=== PATIENT | female | born 1970 | race Caucasian/White ===

== ENCOUNTER → 2019-03-04 13:38 | Outpatient (CLI) | payer MEDICARE, MEDICAID, SELFPAY ==
[2019-03-04 14:16] LABS: Add Manual Diff / Slide Review NO; Basophils Absolute Auto 100 /uL (0-100); Basophils Percent Auto 0.8 % (0-2); Eosinophils Absolute Auto 100 /uL (0-450); Eosinophils Percent Auto 0.8 % (2-4); Hematocrit 39.4 % (36-46); Hemoglobin 12.6 g/dL (12.0-16.0); Lymphocytes Absolute Auto 2700 /uL (1100-4500); Lymphocytes Percent Auto 34.3 % (25-40); Mean Corpuscular Hemoglobin 26.4 PG (26-34); Mean Corpuscular Volume 82.7 fL (80-100); Monocytes Absolute Auto 400 /uL (0-900); Monocytes Percent Auto 5.4 % (3-14); Neutrophils Absolute Auto 4500 /uL (1500-7000); Neutrophils Percent Auto 58.7 % (50-75); Platelet Count 376 X10^3/uL (150-400); Red Blood Cell Count 4.76 X10^6/uL (4.0-5.2); Red Cell Distribution Width 15.7 % (11.6-14.8); White Blood Cell Count 7.7 X10^3/uL (4.5-11.0)
[2019-03-04 14:46] LABS: Alanine Aminotransferase 23 IU/L (9-52); Albumin 4.5 g/dL (3.5-5.0); Alkaline Phosphatase 102 U/L (38-126); Aspartate Aminotransferase 13 IU/L (14-36); Bilirubin Total 0.5 mg/dL (0.2-1.3); Blood Urea Nitrogen 9 mg/dL (7-17); Calcium 9.5 mg/dL (8.4-10.2); Carbon Dioxide 25 mmol/L (22-32); Chloride 99 mmol/L (98-107); Cholesterol 227 mg/dL (140-199); Estimated Glomerular Filt Rate > 60.0 mL/min (>60); Glucose 301 mg/dL (70-100); HDL Cholesterol 69 mg/dL (40-60); HEMOLYSIS < 15 (0-50); LDL Cholesterol Calculated 141 mg/dL (<100); Potassium 4.7 mmol/L (3.4-5.1); Sodium 135 mmol/L (137-145); Triglycerides 84 mg/dL (35-150)
[2019-03-04 14:54] LABS: Albumin Globulin Ratio 1.6 (1.0-2.8); Globulin 2.8 g/dL (1.7-4.1); Total Protein 7.3 g/dL (6.3-8.2)
[2019-03-04 15:03] LABS: Free T4, Direct Thyroxine 1.36 ng/dL (0.78-2.19)
[2019-03-04 15:17] LABS: Thyroid Stimulating Hormone 1.09 uIU/mL (0.47-4.68)
== END ==
PROVIDERS: Family Provider Internal Medicine; PCP Internal Medicine; Visit Provider Nurse Practitioner Psychiatric/Mental Health
DX: F31.9 Bipolar disorder, unspecified (principal); E03.9 Hypothyroidism, unspecified; Z51.81 Encounter for therapeutic drug level monitoring
CPT/HCPCS: 36415; 80053; 80061; 84439; 84443; 85025

== ENCOUNTER 2019-03-08 18:44 | Emergency (ER) | payer MEDICARE, MEDICAID, SELFPAY ==
[2019-03-08 19:05] VITALS: BP 112/69; PULSE 83; RESP 20; TEMP 37.1; O2SAT 97; BMI 25.0
--- NOTE | 2019-03-08 19:05 | ED.GENADULT ---
HPI - General Adult General Chief complaint: Diabetic Problem Stated complaint: diabetic, blood sugar all over the place Time Seen by Provider: 03/08/19 19:05 Source: patient Mode of arrival: ambulatory Limitations: no limitations History of Present Illness HPI narrative: Patient is a 48-year-old female was recently diagnosed with diabetes. Was started on Lantus and dispose be taken 10 units of insulin q.h.s.. I received a call from poison Control that they informed the patient to come into the emergency department. She called them after she injected herself with 6 units of Lantus at 1440 hours. 10 units of Lantus at 1532 hours, 10 units of Lantus at 1554 hours, 10 units of Lantus at 1656 hours. She states she was doing this because her blood sugar was high and that she had read on the Internet some information about carb counting. Poison Control stated that normally they recommend these individual stay at home however because of the amount of Lantus that she has taken the thought that she needed to be observed. They stated that she should be observed for 4 hours after her last dose of insulin for blood sugars remained steady. She is here 2 hours after her last dose. Related Data Home Medications Medication Instructions Recorded Confirmed acyclovir PO BID #0 01/21/18 01/24/19 levothyroxine 50 mcg tablet 50 mcg PO 90 Days tab 04/23/18 01/24/19 omeprazole 40 mg capsule,delayed 40 mg PO 90 Days cap 04/23/18 01/24/19 release cholecalciferol (vitamin D3) 2,000 2,000 unit PO DAILY 07/26/18 01/24/19 unit capsule omega-3 fatty acids 1,000 mg 1,000 mg PO DAILY 01/24/19 01/24/19 capsule Previous Rx's Medication Instructions Recorded zolpidem 10 mg tablet 10 mg PO HS #90 tab 12/24/18 zolpidem 5 mg tablet 5 mg PO HS #90 tab 12/24/18 bupropion HCl XL 300 mg 24 hr 300 mg PO QDAY #30 tab 12/26/18 tablet, extended release lamotrigine 150 mg tablet 150 mg PO QDAY #30 tab 12/26/18 prazosin 5 mg capsule 10 mg PO .HS #60 cap 12/26/18 trazodone 150 mg tablet 150 mg PO HS #30 tab 12/26/18 acyclovir 400 mg tablet See Rx Instructions PO BID #45 tab 01/24/19 alprazolam 0.5 mg tablet 1 mg PO BIDP #60 tab 01/24/19 estradiol 0.1 mg/24 hr semiweekly 1 patch TRANSDERMAL 2XW #8 each 01/24/19 transdermal patch medroxyprogesterone 5 mg tablet 5 mg PO DAILY #90 tab 03/03/19 methylphenidate ER 36 mg 72 mg PO QDAY #60 tab 03/03/19 tablet,extended release 24 hr estradiol 1 mg tablet 1 mg PO DAILY #90 tab 03/05/19 lithium carbonate 300 mg capsule 300 mg PO BEDTIME #90 cap 03/05/19 Allergies Allergy/AdvReac Type Severity Reaction Status Date / Time acetaminophen [From VICODIN] Allergy Unknown Verified 03/08/19 19:10 hydrocodone [From VICODIN] Allergy Unknown Verified 03/08/19 19:10 morphine AdvReac Unknown Pt states Verified 03/08/19 19:10 very sharp pain in pancreas area TAPE Allergy Unknown Uncoded 01/24/19 13:00 Review of Systems Constitutional Denies fever(s) and Denies headache(s) ENT Ears, Nose, Mouth, and Throat: Denies headache(s) Cardiovascular Denies chest pain and Denies dyspnea Respiratory Denies dyspnea Gastrointestinal Gastrointestinal: Denies abdominal pain Genitourinary Denies dysuria Musculoskeletal Denies myalgias and Denies arthralgias Integumentary/Breasts Denies rash Neurologic Denies behavioral changes and Denies headache(s) Psychiatric Denies behavioral changes Hematologic/Lymphatic Denies easy bleeding and Denies easy bruising [facility] Medical History Diabetes (Acute) History of alcohol abuse (Acute) Social History Smoking Status: Former smoker Social History Smoking Status: Former smoker Exam Initial Vital Signs Initial Vital Signs: Vital Signs Temperature 98.8 F 03/08/19 19:05 Pulse Rate 83 03/08/19 19:05 Respiratory Rate 20 03/08/19 19:05 Blood Pressure 112/69 03/08/19 19:05 Pulse Oximetry 97 03/08/19 19:05 Const General: cooperative, healthy appearing, comfortable, well developed, well groomed and No acute distress Orientation: alert, awake and oriented x3 HENMT Head: normal to inspection and normocephalic Resp Effort & Inspection: normal respiratory effort Cardio Rate: regular rate Skin Lesions: no lesions Rashes: no rashes Neuro General: alert, awake and oriented x3 Cognition: normal cognition Speech: speech normal Motor: muscle tone normal throughout Sensory Exam: no sensory deficits noted Extrem General: normal to inspection and capillary refill normal Psych Appearance: grossly normal and well kempt Course Orders Ordered: Discontinued Medications Ibuprofen (Advil) 800 mg PO NOW ONE Stop: 03/08/19 22:47 Last Admin: 03/08/19 22:56 Dose: 800 mg Vital Signs - 8 hr 03/08/19 19:05 03/08/19 21:30 03/08/19 22:30 Temperature 98.8 F Pulse Rate 83 84 91 H Respiratory Rate 20 20 Blood Pressure 112/69 Blood Pressure [Left Arm] 114/69 100/60 Pulse Oximetry 97 98 100 03/08/19 23:30 03/09/19 00:30 03/09/19 01:00 Temperature Pulse Rate 73 78 77 Respiratory Rate 16 16 16 Blood Pressure Blood Pressure [Left Arm] 109/64 110/62 104/39 L Pulse Oximetry 98 98 98 Medical Decision Making Lab Data Lab results reviewed: Yes I reviewed the patient's lab results. Point of Care Testing Glucose POC 359 Point of care testing: Point of Care Testing Glucose POC 359 MDM Narrative Medical decision making narrative: Patient was observed here in the emergency department for several hours. Initially her blood sugar was decreasing. She was given food to eat after she started become somewhat shaky when her glucose is in the 90s. Two repeat blood sugars after that shows that the sugar was actually elevating. I discussed the case further with poison Control who stated that she could be discharged home after does show that her blood sugars are no longer falling. I informed the patient that she did need to check her blood sugars at home for the next couple hours. She was given return precautions. I informed her that she needed to contact her primary doctor on Sunday to discuss further evaluation workup. Patient expressed understanding and agreement with plan. Discharge Plan Departure Patient Disposition: Home Clinical Impression: Hyperglycemia Insulin overdose Qualifiers: Encounter type: initial encounter Injury intent: undetermined intent Qualified Code(s): T38.3X4A - Poisoning by insulin and oral hypoglycemic [antidiabetic] drugs, undetermined, initial encounter Discharge Date/Time: 03/09/19 01:20 Interventions: ED Discharge Assessment Last Done: 03/09/19 01:22 Instructions: DI for Diabetes Type 2 Activity Restrictions/Additional Instructions: I recommend that you stick with taking the 10 units of Lantus at night as directed by your primary doctor. On Sunday morning contact your primary doctor to get clarification on how often they would like you to check your blood sugars. Keep all of your scheduled medical appointments. Return to the emergency department for any new or worsening symptoms Prescriptions: No Action levothyroxine 50 mcg tablet 50 mcg PO 90 Days RF: 0 omeprazole 40 mg capsule,delayed release(DR/EC) 40 mg PO 90 Days RF: 0 alprazolam [Xanax] 0.5 mg tablet 1 mg PO BIDP Qty: 60 RF: 2 cholecalciferol (vitamin D3) 2,000 unit capsule 2,000 unit PO DAILY RF: 0 methylphenidate HCl 36 mg tablet extended release 24hr 72 mg PO QDAY Qty: 60 RF: 0 acyclovir 400 mg Tablet PO BID Qty: 0 RF: 0 zolpidem [Ambien] 10 mg tablet 10 mg PO HS Qty: 90 RF: 0 zolpidem 5 mg tablet 5 mg PO HS Qty: 90 RF: 0 bupropion HCl [Wellbutrin XL] 300 mg tablet extended release 24 hr 300 mg PO QDAY Qty: 30 RF: 2 prazosin 5 mg capsule 10 mg PO .HS Qty: 60 RF: 2 trazodone 150 mg tablet 150 mg PO HS Qty: 30 RF: 2 lamotrigine 150 mg tablet 150 mg PO QDAY Qty: 30 RF: 2 estradiol 0.1 mg/24 hr patch semiweekly 1 patch Transdermal 2XW Qty: 8 RF: 12 medroxyprogesterone [Provera] 5 mg tablet 5 mg PO DAILY Qty: 90 RF: 3 lithium carbonate 300 mg capsule 300 mg PO BEDTIME Qty: 90 RF: 1 estradiol 1 mg tablet 1 mg PO DAILY Qty: 90 RF: 3 omega-3 fatty acids [Fish Oil Concentrate] 1,000 mg capsule 1,000 mg PO DAILY RF: 0 acyclovir 400 mg tablet See Rx Instructions PO BID Qty: 45 RF: 12 Referrals: Adwoa Navarro MD [Primary Care Provider] -
--- NOTE | 2019-03-08 19:29 | PC.NURSE ---
Pt is newly diagnosed Type II Diabetic. Was prescribed Lantus 10 units nightly. States her blood glucose today was 487 so she took her Lantus in small doses every half hour between 1430 and 1700 today. Took a total of 36 units of the Lantus. Also has history of Bipolar Depression.
[2019-03-08 21:30] VITALS: BP 114/69; PULSE 84; RESP 20; O2SAT 98
[2019-03-08 22:30] VITALS: BP 100/60; PULSE 91; O2SAT 100
[2019-03-08] MEDS: IBUPROFEN 400 MG TABLET 800 MG PO (22:56)
--- NOTE | 2019-03-08 23:11 | PC.NURSE ---
Patient feeling better after Ensure shake, apple juice, and qian crackers. Provider notified.
[2019-03-08 23:30] VITALS: BP 109/64; PULSE 73; RESP 16; O2SAT 98
[2019-03-09 00:30] VITALS: BP 110/62; PULSE 78; RESP 16; O2SAT 98
[2019-03-09 01:00] VITALS: BP 104/39; PULSE 77; RESP 16; O2SAT 98
== END 2019-03-09 01:20 | disposition home or self-care (01) ==
PROVIDERS: Emergency Provider Emergency Medicine; PCP Internal Medicine
DX: T38.3X4A Poisoning by insulin and oral hypoglycemic [antidiabetic] drugs, undetermined, initial encounter (principal); R73.9 Hyperglycemia, unspecified
CPT/HCPCS: 82962; 99283; 99285

== ENCOUNTER 2019-05-03 15:57 | Emergency (ER) | payer MEDICARE, MEDICAID, OTHER, SELFPAY ==
[2019-05-03 16:09] VITALS: BP 124/72; PULSE 92; RESP 18; TEMP 36.7; O2SAT 99; BMI 27.8
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
== END 2019-05-03 17:07 | disposition home or self-care (01) ==
PROVIDERS: Emergency Provider Emergency Medicine; PCP Internal Medicine
DX: H10.212 Acute toxic conjunctivitis, left eye (principal); M54.5 Low back pain; Y09 Assault by unspecified means
CPT/HCPCS: 82962; 99283

== ENCOUNTER → 2019-07-07 18:19 | Outpatient (CLI) | payer MEDICARE, MEDICAID, SELFPAY ==
--- NOTE | 2019-07-07 18:24 | DI.RAD.S_ITS ---
PROCEDURE: XR LUMBAR SPINE MIN 4V INDICATIONS: Pain low back >3 months TECHNIQUE: 5 views of the lumbar spine were acquired. COMPARISON: [facility], , L-SPINE 2-3 VIEWS, 06/20/2017, 14:31. FINDINGS: Bones: 5 nonrib-bearing vertebrae are present. There is normal bony alignment. No vertebral body compression fractures. No suspicious bony lesions. Soft tissues: Overlying bowel gas pattern is normal. No suspicious soft tissue calcifications. Oblique images: No pars defects. IMPRESSION: There is only a minimal degree of degenerative disc disease and facet osteoarthritis along the lumbosacral spine without abnormal disc height reduction or subluxation and there is no evidence of compression fracture. Dictated by: Osvaldo Hickman M.D. on 07/08/2019 at 8:24 Approved by: Osvaldo Hickman M.D. on 07/08/2019 at 8:25
--- NOTE | 2019-07-07 18:24 | DI.MRI.S_ITS ---
PROCEDURE: MR LUMBAR SPINE WO CON INDICATIONS: Pain low back >3 months TECHNIQUE: Noncontrast sagittal T1 spin echo and T2 fast echo, sagittal STIR, axial T1 and T2 fast spin echo through the lumbar spine. In cases with scoliosis, additional coronal T2 fast spin echo may be performed. COMPARISON: None. FINDINGS: Image quality: Excellent. Alignment and Curvature: There is normal bony alignment. Bone Marrow: Marrow is of normal overall signal. No acute vertebral body compression fractures. There is lower lumbar facet arthropathy Spinal Cord: Conus medullaris terminates at the L1 level. Visualized cord demonstrates normal signal and size. Paraspinous Soft Tissues: No paravertebral masses. L1-L2: Normal appearance. L2-L3: Normal appearance. L3-L4: Normal appearance. L4-L5: Normal appearance. L5-S1: Normal appearance. IMPRESSION: No canal or foraminal stenosis. Mild lower lumbar facet arthropathy Dictated by: Orville Rocha M.D. on 07/08/2019 at 10:19 Approved by: Orville Rocha M.D. on 07/08/2019 at 10:22
== END ==
PROVIDERS: PCP Internal Medicine; Visit Provider Registered Nurse
DX: M54.5 Low back pain (principal); M47.816 Spondylosis without myelopathy or radiculopathy, lumbar region
CPT/HCPCS: 72110; 72148; 90837

== ENCOUNTER 2019-10-05 14:15 | Emergency (ER) | payer MEDICARE, MEDICAID, SELFPAY ==
[2019-10-05 14:34] VITALS: BP 127/75; PULSE 107; RESP 18; TEMP 37.1; O2SAT 97; BMI 28.1
--- NOTE | 2019-10-05 16:28 | ED.ANIMALBIT ---
HPI - Animal Bite General Chief Complaint: Animal Bite Stated Complaint: Animal bite/ scratches Time Seen by Provider: 10/05/19 16:03 Source: patient Mode of arrival: Family Vehicle Limitations: no limitations History of Present Illness HPI narrative: Patient is a 49-year-old female presenting with cat bite to both hands yesterday. She states that she was playing with a feral cat who she is trying to get ready for adoption. The cat has actually had all of its shots. She said that her left thumb was draining. Her right thumb seems to be more tender. She has no redness or streaking upper arms no fever or chills. She states that her tetanus in all of her shots are up-to-date. MD complaint: animal bite Onset (ago): day(s) Animal: cat Mechanism: bite and scratch Related Data Home Medications Medication Instructions Recorded Confirmed acyclovir PO BID #0 01/21/18 09/10/19 levothyroxine 50 mcg tablet 50 mcg PO 90 Days tab 04/23/18 09/10/19 omeprazole 40 mg capsule,delayed 40 mg PO 90 Days cap 04/23/18 09/10/19 release omega-3 fatty acids 1,000 mg 1,000 mg PO DAILY 01/24/19 09/10/19 capsule atorvastatin 10 mg tablet 10 mg PO BEDTIME 07/02/19 09/10/19 cholecalciferol (vitamin D3) 50 4,000 unit PO DAILY cap 07/02/19 09/10/19 mcg (2,000 unit) capsule gabapentin 300 mg capsule 300 mg PO TID 07/02/19 09/10/19 insulin aspart U-100 SUBCUT TID 07/02/19 09/10/19 insulin glargine SUBCUT .qhs 07/02/19 09/10/19 mirabegron 25 mg tablet,extended 25 mg PO DAILY 07/02/19 09/10/19 release 24 hr propranolol 10 mg tablet 10 mg PO .unk tab 07/02/19 09/10/19 Previous Rx's Medication Instructions Recorded medroxyprogesterone 5 mg tablet 5 mg PO DAILY #90 tab 03/03/19 estradiol 1 mg tablet 1 mg PO DAILY #90 tab 03/05/19 alprazolam 0.5 mg tablet 1 mg PO BIDP #60 tab 06/16/19 lithium carbonate 300 mg capsule 300 mg PO BEDTIME #90 cap 07/25/19 escitalopram oxalate 10 mg tablet 10 mg PO DAILY #90 tab 07/29/19 prazosin 5 mg capsule 10 mg PO .HS #180 cap 08/04/19 bupropion HCl 300 mg 24 hr tablet, 300 mg PO QDAY #90 tab 09/10/19 extended release lamotrigine 150 mg tablet 150 mg PO QDAY #90 tab 09/10/19 methylphenidate HCl 36 mg 72 mg PO QDAY #60 tab 09/10/19 tablet,extended release 24 hr trazodone 150 mg tablet 150 mg PO HS #90 tab 09/10/19 zolpidem 10 mg tablet 10 mg PO HS #90 tab 09/10/19 zolpidem 5 mg tablet 5 mg PO HS #90 tab 09/10/19 amoxicillin-pot clavulanate 1 tab PO Q12H #20 tab 10/05/19 [Augmentin] fluconazole [Diflucan] 150 mg PO DAILY #1 tab 10/05/19 Allergies Allergy/AdvReac Type Severity Reaction Status Date / Time acetaminophen [From VICODIN] Allergy Unknown Verified 10/05/19 14:41 hydrocodone [From VICODIN] Allergy Unknown Verified 10/05/19 14:41 morphine AdvReac Unknown Pt states Verified 10/05/19 14:41 very sharp pain in pancreas area TAPE Allergy Unknown Uncoded 10/05/19 14:41 Review of Systems Review of Systems Narrative: GENERAL: Denies chills,fever HEENT: Denies throat pain RESPIRATORY: Denies dyspnea, cough, wheezing CARDIOVASCULAR: Denies chest pain, palpitations GASTROINTESTINAL: Denies nausea, vomiting MUSCULOSKELETAL: Denies extremity pain, injury SKIN: see HPI NEUROLOGIC: Denies weakness, dizziness, headache, numbness 8 point review of systems is negative except for those stated above and HPI Patient History Medical History Diabetes (Acute) History of alcohol abuse (Acute) Social History Smoking Status: Former smoker alcohol intake frequency: 0-2 drinks per day Substance Use Type: does not use Exam Initial Vital Signs Initial Vital Signs: Vital Signs Temperature 98.7 F 10/05/19 14:34 Pulse Rate 107 H 10/05/19 14:34 Respiratory Rate 18 11/10/19 14:34 Blood Pressure 127/75 10/05/19 14:34 Pulse Oximetry 97 10/05/19 14:34 GENERAL: Well-appearing, well-nourished and in no acute distress. CARDIOVASCULAR: peripheral pulses in tact, cap refill <2 sec RESPIRATORY: No respiratory distress, speaks in full sentences without difficulty EXTREMITIES: Normal range of motion, no clubbing or edema. Neurovascularly intact NEUROLOGICAL: Cranial nerves II through XII grossly intact. Normal gait and speech. SKIN: Puncture musa noted in left hand between thumb and index finger no streaking no foreign body. Right thumb does have puncture umsa it is slightly red Course Orders Ordered: ED Orders 10/05/19 16:35 XR finger RT min 2V Stat Discontinued Medications Diphtheria/Tetanus/Acell Pertussis (Adacel) 0.5 ml IM .ONCE ONE Stop: 10/05/19 17:00 Last Admin: 10/05/19 17:08 Dose: 0.5 ml Documented by: LESLIE Vital Signs Vital signs: Vital Signs - 8 hr 10/05/19 14:34 10/05/19 17:42 Temperature 98.7 F Pulse Rate 107 H 100 H Respiratory Rate 18 18 Blood Pressure 127/75 112/68 Pulse Oximetry 97 MDM - Animal Bite Imaging Data finger right: Radiologist's impression: PROCEDURE: XR FINGER RT MIN 2V INDICATIONS: cat bite thumb TECHNIQUE: AP hand, 2 views of the thumb were acquired. COMPARISON: None. FINDINGS: Bones: No fractures or dislocations. No suspicious bony lesions. Soft tissues: No suspicious soft tissue calcifications. No unexpected radiopaque foreign bodies. IMPRESSION: No acute osseous abnormality of the right thumb. Dictated by: Eris Graham M.D. on 10/05/2019 at 15:54 MDM Narrative Medical decision making narrative: Patient has no sign of sepsis. She is given a tetanus in the ED. Discharge Plan Departure Patient Disposition: Home Clinical Impression: Cat bite of hand Qualifiers: Encounter type: initial encounter Laterality: unspecified laterality Qualified Code(s): S61.459A - Open bite of unspecified hand, initial encounter Discharge Date/Time: 10/05/19 17:43 Instructions: DI for Cat Bite Activity Restrictions/Additional Instructions: *You have been diagnosed with cat bite bilateral hands *What to do: *Continue to take medications as directed Augmentin 875 mg twice a day for 10 days--> SENT TO [facility] *Follow up with your primary care provider in 2-3 days *Return to ER if you should have redness or streaking up the arm, increased pain, fever or chills or any new, worsening or concerning symptoms Prescriptions: New amoxicillin-pot clavulanate [Augmentin] 875-125 mg tablet 1 tab PO Q12H Qty: 20 RF: 0 fluconazole [Diflucan] 150 mg tablet 150 mg PO DAILY Qty: 1 RF: 0 No Action levothyroxine 50 mcg tablet 50 mcg PO 90 Days RF: 0 omeprazole 40 mg capsule,delayed release(DR/EC) 40 mg PO 90 Days RF: 0 bupropion HCl [Wellbutrin XL] 300 mg tablet extended release 24 hr 300 mg PO QDAY Qty: 90 RF: 1 lamotrigine 150 mg tablet 150 mg PO QDAY Qty: 90 RF: 1 trazodone 150 mg tablet 150 mg PO HS Qty: 90 RF: 1 zolpidem [Ambien] 10 mg tablet 10 mg PO HS Qty: 90 RF: 1 zolpidem 5 mg tablet 5 mg PO HS Qty: 90 RF: 1 methylphenidate HCl 36 mg tablet extended release 24hr 72 mg PO QDAY Qty: 60 RF: 0 cholecalciferol (vitamin D3) 2,000 unit capsule 4,000 unit PO DAILY RF: 0 acyclovir 400 mg Tablet PO BID Qty: 0 RF: 0 medroxyprogesterone [Provera] 5 mg tablet 5 mg PO DAILY Qty: 90 RF: 3 estradiol 1 mg tablet 1 mg PO DAILY Qty: 90 RF: 3 alprazolam [Xanax] 0.5 mg tablet 1 mg PO BIDP Qty: 60 RF: 2 lithium carbonate 300 mg capsule 300 mg PO BEDTIME Qty: 90 RF: 1 escitalopram oxalate 10 mg tablet 10 mg PO DAILY Qty: 90 RF: 0 prazosin 5 mg capsule 10 mg PO .HS Qty: 180 RF: 1 omega-3 fatty acids [Fish Oil Concentrate] 1,000 mg capsule 1,000 mg PO DAILY RF: 0 gabapentin 300 mg capsule 300 mg PO TID RF: 0 insulin glargine SUBCUT .qhs RF: 0 atorvastatin [Lipitor] 10 mg tablet 10 mg PO BEDTIME RF: 0 mirabegron 25 mg tablet extended release 24 hr 25 mg PO DAILY RF: 0 insulin aspart U-100 subcut TID RF: 0 propranolol 10 mg tablet 10 mg PO .unk RF: 0 Referrals: Adwoa Navarro MD [Primary Care Provider] -
--- NOTE | 2019-10-05 16:35 | DI.RAD.S_ITS ---
PROCEDURE: XR FINGER RT MIN 2V INDICATIONS: cat bite thumb TECHNIQUE: AP hand, 2 views of the thumb were acquired. COMPARISON: None. FINDINGS: Bones: No fractures or dislocations. No suspicious bony lesions. Soft tissues: No suspicious soft tissue calcifications. No unexpected radiopaque foreign bodies. IMPRESSION: No acute osseous abnormality of the right thumb. Dictated by: Eris Graham M.D. on 10/05/2019 at 15:54 Approved by: Eris Graham M.D. on 10/05/2019 at 15:54
[2019-10-05] MEDS: TET,DIPH,PERTUSS(ACELL),VAC/PF 0.5 ML SYRINGE IM (17:08)
[2019-10-05 17:42] VITALS: BP 112/68; PULSE 100; RESP 18
== END 2019-10-05 17:43 | disposition home or self-care (01) ==
PROVIDERS: Emergency Provider Emergency Medicine; PCP Internal Medicine
DX: S61.051A Open bite of right thumb without damage to nail, initial encounter (principal); S61.452A Open bite of left hand, initial encounter; S61.451A Open bite of right hand, initial encounter; Z23 Encounter for immunization
CPT/HCPCS: 73140; 90471; 99282; 99283; 90715

== ENCOUNTER → 2020-06-21 11:02 | Outpatient (CLI) | payer MEDICARE, MEDICAID, SELFPAY ==
[2020-06-22 20:28] LABS: COVID19 Sendout Not Detected (Not Detect)
== END ==
PROVIDERS: PCP Nurse Practitioner; Visit Provider Physician Assistant
DX: Z01.812 Encounter for preprocedural laboratory examination (principal)
CPT/HCPCS: 87635

== ENCOUNTER 2020-06-24 14:45 | Outpatient (CLI) | payer MEDICARE, MEDICAID, SELFPAY ==
[2020-06-24] VITALS (8 sets, daily range): BP systolic 99–118; BP diastolic 58–76; PULSE 87–111; RESP 15–16; TEMP 37.2; O2SAT 93–98
--- NOTE | 2020-06-24 14:46 | DI.RAD.S_ITS ---
PROCEDURE: PAIN L/S FACET INJ/BLK 1ST JUAN COMPARISON: None. INDICATIONS: SPONDYLOSIS FINDINGS: Fluoroscopic spot filming was performed to verify placement of spinal needles at the L4, L5, S1 level(s), as labeled on the films. Appropriate location(s) of the needle tip(s) was confirmed by injection of iodinated contrast. Dictated by: Orville Rocha M.D. on 06/24/2020 at 15:55 Approved by: Orville Rocha M.D. on 06/24/2020 at 15:56
[2020-06-24] MEDS: IOPAMIDOL 15 ML VIAL 3 ML INJ (15:16)
[2020-06-24] MEDS: LIDOCAINE 1% 20 ML 10 ML INJ (15:16)
[2020-06-24] MEDS: BUPIVACAINE 0.5% (PF) VIAL 5 ML INJ (15:16)
[2020-06-24] MEDS: fentaNYL 100 MCG/2 ML INJ 50 MCG IV (15:27)
[2020-06-24] MEDS: MIDAZOLAM 5 MG/5 ML VIAL IV (15:28)
--- NOTE | 2020-06-24 15:29 | P.PCN_ITS ---
Date/Time/Diagnoses Date of procedure: 06/24/20 Time of procedure: 15:29 Pre-procedure diagnosis: 1. FACET ARTHROPATHY Post-procedure diagnosis: same Procedure Notes Procedure: 1. BILATERAL- L4, L5 and S1 DIAGNOSTIC MB BLOCKS with LA Anesthetic Indications: Mary Grace is referred by GAYE Jeffrey for treatment of Bilateral Axial LBP. Physician: Jordon Jacques Total Fluoroscopy time (seconds): 10 Total sedation minutes: 15 Complications: none Procedure in detail & Post-procedure care: DESCRIPTION OF PROCEDURE Fluoroscopically guided, contrast-controlled bilateral L4, L5 and S1 medial branch blocks with 0.5cc of 0.5% Marcaine. Following review of allergy and review of potential side effects and complications, including, but not necessarily limited to, infection, allergic reaction, local tissue breakdown, nerve injury, paralysis, stroke and possible , the patient indicated that the patient understood and agreed to proceed. An informed consent document was signed by the patient, witnessed by a nurse, and placed in the patient's chart. After review of previous anaesthesic history and IV conscious sedation the patient was deemed safe to proceed with today's procedure with IV conscious sedation as ASA class II designation. Safety time-out was performed to confirm patient ID, procedure to be performed and site of procedure. IV sedation was accomplished with a combination of 3mg of Versed and 50mcg of Fentanyl was administered by the RN after DO order, titrated to patient comfort during the course of the procedure while the patient remained responsive to all verbal commands In the prone position, following sterile prep and drape of the lumbar region, the right L4, L5 and S1 anatomical location of the medial branch of the dorsal ramus was identified fluoroscopically. Subsequently an anesthetic skin wheal using 1% lidocaine solution was initiated at each of the anatomical spots. Subsequently then a 22-gauge 3.5-inch spinal needle was atraumatically introduced and advanced under fluoroscopic guidance at each of the corresponding sites at the right L4, L5 and S1 MB. After negative aspiration, 0.2cc of Isovue 200 was injected, confirming placement without vascular or intrathecal uptake. Subsequently then 0.5cc of 0.5% Marcaine and 0.5cc or 3mg of betamethasone solution was injected at each of the corresponding sites at the right L4, L5 and S1 medial branch locations. The identical procedure was replicated on the left. The patient tolerated the procedure well without signs or symptoms of complications prior to transfer to the recovery area continued monitoring with out incident. Post-procedure, the patient was monitored initiating provocative activities to measure the amount of relief from block of the facetogenic pain. The patient reported a VAS of 7 prior to the procedure and a post-procedure VAS of 1. It has been a pleasure to assist in the diagnostic and therapeutic care of your patient. POST OP INSTRUCTIONS The patient was provided with a Pain Log to complete over the next several hours and subsequent days prior to the patient's follow up with the ordering physician. If the patient has distance learning unit leader relief to the solution applied, then they may be a candidate for medial branch rhizotomy. The patient is aware, was provided, once again, with a Pain Log and will follow up with the referring physician for review and clinical correlation
--- NOTE | 2020-06-24 15:34 | PC.NURSE ---
returned to pre proc room by . SBA for transfer from to chair. monitoring resumed per protocol
[2020-06-24] MEDS: BETAMETHASONE 30 MG/5 ML MDV 6 MG INJ (15:36)
--- NOTE | 2020-06-24 15:39 | PC.NURSE ---
Pt tolerated procedure well. VSS upon transfer to post procedure room to REBE[facility] Sands. All sedaiton meds given by Ann Andrade. All other documented meds adminsitered by Dr Jacques.
== END 2020-06-24 16:06 | disposition home or self-care (01) ==
PROVIDERS: PCP Nurse Practitioner; Referring Provider Physical Medicine & Rehabilitation; Visit Provider Physical Medicine & Rehabilitation
DX: M47.816 Spondylosis without myelopathy or radiculopathy, lumbar region (principal); M47.817 Spondylosis without myelopathy or radiculopathy, lumbosacral region; M54.5 Low back pain
CPT/HCPCS: 64493; 64494; 99152; J0702; J2250; J3010

== ENCOUNTER → 2020-09-30 10:42 | Outpatient (CLI) | payer MEDICARE, MEDICAID, SELFPAY ==
[2020-09-30 11:39] LABS: Glucose 161 mg/dL (70-100)
[2020-10-01 07:11] LABS: C Peptide 2.3 ng/mL (1.1-4.4)
== END ==
PROVIDERS: PCP Nurse Practitioner; Referring Provider Nurse Practitioner Family; Visit Provider Nurse Practitioner Family
DX: E11.42 Type 2 diabetes mellitus with diabetic polyneuropathy (principal); F31.81 Bipolar II disorder; F90.2 Attention-deficit hyperactivity disorder, combined type; F10.21 Alcohol dependence, in remission; F43.10 Post-traumatic stress disorder, unspecified; Z79.4 Long term (current) use of insulin
CPT/HCPCS: 36415; 82947; 84681; 90837

== ENCOUNTER → 2020-10-22 08:25 | Outpatient (CLI) | payer MEDICARE, MEDICAID, SELFPAY ==
[2020-10-22 11:21] LABS: Glucose 54 mg/dL (70-100)
[2020-10-22 11:51] LABS: Thyroid Stimulating Hormone 0.835 uIU/mL (0.47-4.68)
[2020-10-23 09:00] LABS: C Peptide 0.9 ng/mL (1.1-4.4)
== END ==
PROVIDERS: PCP Nurse Practitioner; Referring Provider Nurse Practitioner; Visit Provider Nurse Practitioner
DX: E03.8 Other specified hypothyroidism (principal); E11.42 Type 2 diabetes mellitus with diabetic polyneuropathy; Z79.4 Long term (current) use of insulin
CPT/HCPCS: 36415; 82947; 84443; 84681

== ENCOUNTER → 2020-11-08 13:44 | Outpatient (CLI) | payer MEDICARE, MEDICAID, SELFPAY ==
--- NOTE | 2020-11-08 | DI.MRI.S_ITS ---
PROCEDURE: MR LUMBAR SPINE WO CON INDICATIONS: Radiculopathy, lumbar region TECHNIQUE: Noncontrast sagittal T1 spin echo and T2 fast echo, sagittal STIR, axial T1 and T2 fast spin echo through the lumbar spine. In cases with scoliosis, additional coronal T2 fast spin echo may be performed. COMPARISON: [facility], CR, L-SPINE 2-3 VIEWS, 06/20/2017, 14:31. [facility], MR, MR LUMBAR SPINE WO CON, 07/07/2019, 18:28. FINDINGS: Image quality: Excellent. Alignment and Curvature: 5 lumbar type vertebral bodies are present by plain film. There is normal bony alignment. Bone Marrow: Marrow is of normal overall signal. No acute vertebral body compression fractures. Spinal Cord: Conus medullaris terminates at the upper L1 level. Visualized cord demonstrates normal signal and size. Paraspinous Soft Tissues: No paravertebral masses. L1-L2: Normal appearance. L2-L3: Normal appearance. L3-L4: Normal appearance. L4-L5: Mild facet hypertrophy bilaterally. No significant canal, or foraminal stenosis. L5-S1: Normal appearance. IMPRESSION: 1. Essentially normal lumbar spine MRI. No evidence of neural impingement. No explanation for radiculopathy. Dictated by: Boubacar Cabrera M.D. on 11/08/2020 at 14:42 Approved by: Boubacar Cabrera M.D. on 11/08/2020 at 14:43
== END ==
PROVIDERS: PCP Nurse Practitioner; Referring Provider Anesthesiology; Visit Provider Anesthesiology
DX: M54.16 Radiculopathy, lumbar region (principal)
CPT/HCPCS: 72148

== ENCOUNTER → 2020-11-08 13:46 | Outpatient (CLI) | payer MEDICARE, MEDICAID, SELFPAY ==
[2020-11-08 17:25] LABS: Glucose 66 mg/dL (70-100)
[2020-11-09 14:10] LABS: C Peptide 1.3 ng/mL (1.1-4.4)
== END ==
PROVIDERS: PCP Nurse Practitioner; Referring Provider Nurse Practitioner Family; Visit Provider Nurse Practitioner Family
DX: E11.42 Type 2 diabetes mellitus with diabetic polyneuropathy (principal); Z79.4 Long term (current) use of insulin
CPT/HCPCS: 36415; 82947; 84681

== ENCOUNTER → 2021-04-27 16:26 | Outpatient (CLI) | payer MEDICARE, MEDICAID, SELFPAY ==
[2021-04-27 17:01] LABS: Appearance Urine UA CLOUDY; Bilirubin Urine UA NEGATIVE (NEGATIVE); Color Urine UA YELLOW; Glucose Urine UA NEGATIVE (Negative); Ketones Urine UA NEGATIVE (NEGATIVE); Leukocyte Esterase Urine UA 2+ (NEGATIVE); Nitrite Urine UA NEGATIVE (Negative); Occult Blood Urine UA 1+ (Negative); Protein Urine UA 1+ (Negative); Specific Gravity Urine UA >=1.030 (1.000-1.035); Urobilinogen Urine UA 0.2 E.U./dL (0.2)
[2021-04-27 17:24] LABS: Bacteria Urine Many (>30); Culture Indicated Urine Specimen Cultured; RBC Urine 1-5/HPF (0-5/HPF); Squamous Epithelial Cell Urine 5-10 /HPF (0-5/HPF); WBC Urine 10-30/HPF (0-5/HPF)
== END ==
PROVIDERS: PCP Nurse Practitioner; Referring Provider Nurse Practitioner; Visit Provider Nurse Practitioner
DX: N30.00 Acute cystitis without hematuria (principal)
CPT/HCPCS: 81001; 87077; 87086; 87186

== ENCOUNTER → 2021-06-01 15:21 | Outpatient (CLI) | payer MEDICARE, MEDICAID, SELFPAY ==
[2021-06-01 15:39] LABS: RBC Urine None Seen (0-5/HPF)
[2021-06-01 16:23] LABS: Appearance Urine UA CLEAR; Bilirubin Urine UA NEGATIVE (NEGATIVE); Color Urine UA YELLOW; Glucose Urine UA NEGATIVE (Negative); Ketones Urine UA NEGATIVE (NEGATIVE); Leukocyte Esterase Urine UA NEGATIVE (NEGATIVE); Nitrite Urine UA NEGATIVE (Negative); Occult Blood Urine UA NEGATIVE (Negative); Protein Urine UA NEGATIVE (Negative); Specific Gravity Urine UA <=1.005 (1.000-1.035); Urobilinogen Urine UA 0.2 E.U./dL (0.2)
[2021-06-01 16:39] LABS: Amorphous Sediment Urine 1+; Bacteria Urine Occasional (0-1); Culture Indicated Urine Cult Not Indicated; Squamous Epithelial Cell Urine 1-5 /HPF (0-5/HPF); WBC Urine 1-5/HPF (0-5/HPF)
== END ==
PROVIDERS: PCP Nurse Practitioner; Referring Provider Nurse Practitioner; Visit Provider Nurse Practitioner
DX: N30.00 Acute cystitis without hematuria (principal)
CPT/HCPCS: 81001

== ENCOUNTER → 2022-01-16 11:27 | Outpatient (CLI) | payer MEDICARE, MEDICAID, SELFPAY ==
[2022-01-16 13:58] LABS: COVID19 -Nasal RAPID Negative (Negative)
== END ==
PROVIDERS: PCP Nurse Practitioner; Visit Provider Family Medicine Sleep Medicine
DX: Z20.822 Contact with and (suspected) exposure to COVID-19 (principal)
CPT/HCPCS: 87635; C9803

== ENCOUNTER → 2022-02-08 14:59 | Outpatient (CLI) | payer MEDICARE, MEDICAID, SELFPAY ==
[2022-02-08 15:47] LABS: COVID19 -Nasal RAPID Negative (Negative)
== END ==
PROVIDERS: PCP Nurse Practitioner; Visit Provider Specialist
DX: Z01.812 Encounter for preprocedural laboratory examination (principal); Z20.822 Contact with and (suspected) exposure to COVID-19; F41.1 Generalized anxiety disorder; F42.2 Mixed obsessional thoughts and acts; F31.81 Bipolar II disorder; F90.2 Attention-deficit hyperactivity disorder, combined type; F10.21 Alcohol dependence, in remission
CPT/HCPCS: 87635; C9803; Q3014

== ENCOUNTER 2022-02-09 13:27 | Day surgery (SDC) | payer MEDICARE, MEDICAID, SELFPAY ==
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
[2022-02-07 14:54] VITALS: BMI 23.7
[2022-02-09] VITALS (14 sets, daily range): BP systolic 82–133; BP diastolic 48–79; PULSE 63–74; RESP 13–20; TEMP 36.1–36.8; O2SAT 94–100; BMI 23.8
--- NOTE | 2022-02-09 | PATH_ITS ---
[facility] Accession Number: [id number] . 01 Material submitted: . uterus - UTERUS, BILATERAL FALLOPIAN TUBE AND OVARY . 02 Diagnosis: Uterus, Bilateral Fallopian Tubes and Ovaries, Laparoscopic Supracervical Hysterectomy with Bilateral Salpingo-oophorectomies (Disrupted Specimen Weight 87 grams): Weakly proliferative endometrium; negative for glandular hyperplasia, cytologic atypia, or malignancy. Myometrium with multiple intramural leiomyomas (3-45 mm in greatest dimension); negative for atypia or malignancy. Uterine serosa with no significant histomorphologic abnormality. First described fallopian tube, cross sections, negative for atypia or malignancy. First described ovary with a benign corpus luteum cyst and no significant histomorphologic abnormality. Second described fallopian tube, cross sections, with focal features suggestive of hydrosalpinx, a region of foreign body reaction, and otherwise no significant histomorphologic abnormality. Second described fallopian tube with benign cortical cysts (approximately 3 mm in greatest dimension) and no significant histomorphologic abnormality. MRV 02/13/2022 1742 Local . 02 Electronically signed: . Bárbara Avendaño MD, Pathologist NPI- [id number] . 01 Gross description: . Received in formalin, labeled with the patient's name and designated 1. Uterus, bilateral fallopian tube and ovary is a markedly disrupted and fragmented uterus with bilateral undesignated adnexa and multiple detached nodules. The uterine fragment and nodules aggregate to 87 grams, 10.0 x 8.0 x 3.5 cm. Portions of identifiable serosa are castillo-bella and disrupted with no discrete adhesions identified. Scant portions of endometrium are identified, bella, flat and up to 0.2 cm thick. The myometrium is bella and trabeculated, with numerous intact and detached, 0.3-4.5 cm circumscribed nodules, with a bella-white, whorled and nodular cut surface. No hemorrhage, necrosis or calcifications are identified. The first detached fallopian tube is 4.5 cm long by 0.5 cm in diameter with a purple-bella outer surface and detached open fimbria. The first attached ovary is 2.7 x 1.8 x 0.8 cm, with a castillo-bella disrupted outer surface, sectioned to reveal a mottled bella-white cut surface with one 0.7 cm hemorrhagic cyst with a yo rim. The second detached fallopian tube is 4.0 cm long by 0.7 cm in diameter, with a castillo-bella disrupted outer surface and attached open fimbria. The second ovary is 2.6 x 2.0 x 1.0 cm, with a castillo-bella nodular outer surface, sectioned to reveal a bella, focally hemorrhagic cut surface with two 0.3 cm smooth-lined cortical cysts filled with clear watery fluid. No additional lesions are identified. [employer] sections are submitted as follows: . A1-A2: [employer] endomyometrium with detached serosa. A3-A4: [employer] nodules. A5: [employer] first adnexa, including entire bisected fimbria. A6: [employer] second adnexa, including entire fimbria. (EVELIN:[id number]) /MRV 02/12/2022 1308 Local . 02 Pathologist provided ICD-10: D25.9 . 02 CPT . 995062 Specimen Comment: A courtesy copy of this report has been sent to [phone] Performed at: 01 [facility] [address] [facility], [place], [place] [id number] MD Bernardo Sanders MD Phone: [phone] Performed at: [address] [facility] [address] [place], [place] [id number] MD Agnieszka Begum MD Phone: [phone]
[2022-02-09] MEDS: LACTATED RINGERS 1,000 ML 42 ML IV (14:25)
--- NOTE | 2022-02-09 14:47 | PM.PREOP ---
Pre-operative Note COVID-19 COVID-19 status: Negative Result date/Date tested (Pos, Neg/Pending): 02/08/22 Criteria for continued procedure: Non-surgical alternatives not available or appropriate per current SOC Interval Note History & Physical reviewed/Exam performed by Physician: Yes Changes to H&P: No
--- NOTE | 2022-02-09 14:55 | SUR.OPER ---
Lithotomy on padded OR bed. Carolina Pad Positioner under torso. Head on pillow, arms padded and tucked at sides. Legs secured in padded yellow fins stirrups.
[2022-02-09] MEDS: CEFAZOLIN 2 GM/20 ML SYRINGE IV (15:25)
[2022-02-09] MEDS: ROPIVACAINE 0.2% PF 2 MG/ML 10ML AMP 20 ML INJ (15:34)
[2022-02-09] MEDS: BUPIVACAINE 0.5% (PF) 30 ML, EPINEPHrine 0.15 MG INJ (15:36)
--- NOTE | 2022-02-09 16:57 | PM.OP.1 ---
Operative Date/Time/Diagnoses Date of procedure: 02/09/22 Time of procedure: 16:57 Pre-op diagnosis: Postmenopausal bleeding and chronic pelvic pain Post-op diagnosis: same Procedure & Clinicians Procedure: Laparoscopic supracervical hysterectomy with bilateral salpingo oophorectomy and lysis of adhesions Same procedure as scheduled: Yes Indications: Patient with postmenopausal bleeding and chronic pelvic pain requesting hysterectomy and bilateral salpingo oophorectomy Surgeon: Soraida Hein Front Desk Officer: Zackary Sorensen Click Yes if Unassisted: No Anesthesia Type: General Operative Notes Findings: Adhesions of the omentum to the anterior abdominal wall between the umbilicus and the pubic symphysis. Adhesion of the right fallopian tube to the anterior abdominal wall. Adhesion of the descending colon to the left tube and ovary. Uterus enlarged with multiple uterine fibroids. Normal appearing bowel surface, a normal appearing liver edge. Closure Type: primary Specimen(s): other (Uterus above the level of the cervix with bilateral tubes and ovaries) Estimated Blood Loss (mL): 20 Blood products transfused: none Procedure in detail: Patient is brought to the operating room where she underwent general anesthesia and placed in [facility]. She was prepped and draped in the usual sterile fashion. A check list was reviewed with the staff in the room prior to beginning of the case. Patient had pulsatile stockings in place and functional. 2 g of Ancef were in prior to beginning of the case. A Mosley catheter was placed. A single-tooth tenaculum was placed on the anterior lip of the cervix and the cervix dilated to a #6 Hegar dilator. The uterine manipulator was placed through the cervix into the uterus with the balloon inflated with 3 mL of air. The area of the umbilical incision and the 5 mm right and left lower quadrant incisions were injected with 0.25% Marcaine with epinephrine. An incision was made with scalpel. The verries needle was placed into the abdomen and confirmed in the appropriate place with withdrawal on a syringe and then free flow of fluid down through the needle. The abdomen was insufflated with CO2. The needle was removed and a 5 mm trocar placed without difficulty. There did not appear to be any damage is placement of the trocar. The right and left lower quadrant incisions were made with the scalpel and the trochars placed without damage to internal structures. The PK forceps were used to cauterize and cut the adhesions of the omentum to the anterior abdominal wall and freed the right fallopian tube from the anterior abdominal wall. PK forceps were used to cauterize the infundibulopelvic ligaments. Sequential bites were taken along the mesosalpinx followed by the round ligaments on both sides. Sequential bites were taken down the broad ligaments. The uterine arteries were cauterized. An incision was made above the level bladder pushing the bladder away from the cervix. The SAM loop was placed around the uterus and the uterus was amputated above the level of the bladder. Bleeding was controlled with the PK forceps. The PK forceps were used to cauterize in the endocervical canal. A supracervical incision was made and an 11 mm port placed. A 15 mm Endo Catch bag was placed in the abdomen. The uterus, tubes and ovaries were placed in the bag and brought up through the suprapubic port site. The Garfield O was placed. The uterus was hand morselized. The abdomen was reinsufflated and adequate hemostasis was noted. 10 cc of ropivacaine were placed over the cervical stump. Trochars were removed and the CO2 allowed escape from the abdomen. The fascia layer of the suprapubic site was repaired with 0 Polysorb suture. Skin was closed with 4-0 Monocryl suture at the suprapubic site and the other 3 sites. The patient went to recovery room in good condition. Counts of instruments and sponges were correct. Dr. Sorensen was present throughout the case to assist with holding the camera, retracting, cauterizing and cutting the structures on the left side of the patient, as well as assisting with morselization of the uterus. Complications: none Post-operative Condition: stable Disposition: observation Plan for aftercare: Patient is hoping to go home this evening will see if she is able to tolerate a regular diet and ambulate prior to discharge
[2022-02-09] MEDS: ACETAMINOPHEN 325 MG TABLET 650 MG PO (17:00)
[2022-02-09] MEDS: OXYCODONE IR 5 MG TABLET PO (17:00)
[2022-02-09] MEDS: ONDANSETRON 4 MG/2 ML INJ IV (17:00)
[2022-02-09] MEDS: LACTATED RINGERS 1,000 ML 100 ML IV (17:40)
[2022-02-09] MEDS: ACYCLOVIR 400 MG TABLET PO (17:40)
[2022-02-09] MEDS: KETOROLAC 30 MG/ML VIAL IV ×2 (17:43→23:06)
--- NOTE | 2022-02-09 17:59 | PC.NURSE ---
Addendum entered by Ann Tejeda R.N. 02/09/22 18:34: Assisted to BSC; 2PA w/gait belt Voided 200cc clear yellow urine Call light w/in reach, bed alarm on for pt safety. Continue w/plan of care. Original Note: Pt arrived from PACU @ 1725 A/O. taking po w/o nausea. Lap site dsg x 4 CDI. Lungs clear, SpO2 98% RA. IVF infusing as per orders. Med w/ketorlac w/good relief. Stable post op course. Call light w/in reach, bed alarm on for pt safety.
[2022-02-09] MEDS: LITHIUM 300 MG IR CAPSULE PO (21:35)
[2022-02-09] MEDS: DOCUSATE 100 MG CAPSULE 200 MG PO (21:36)
[2022-02-09] MEDS: PRAZOSIN HCL 5 MG CAPSULE 10 MG PO (21:36)
[2022-02-09] MEDS: lamoTRIgine 100 MG TABLET 150 MG PO (21:38)
[2022-02-09] MEDS: TRAZODONE 50 MG TABLET PO (21:41)
[2022-02-10 01:00] VITALS: BP 91/53; PULSE 76; RESP 16; TEMP 36.2; O2SAT 98
[2022-02-10] MEDS: LACTATED RINGERS 1,000 ML 100 ML IV (02:46)
[2022-02-10] MEDS: KETOROLAC 30 MG/ML VIAL IV ×2 (04:43→10:22)
[2022-02-10 05:15] VITALS: BP 95/52; PULSE 73; RESP 16; TEMP 36.4; O2SAT 97
--- NOTE | 2022-02-10 05:48 | PC.NURSE ---
Shift Note: Patient was alert and orientedx4, afebrile, vital signs within acceptable limits. Patient stated post-op pain, due pain meds given and verbalized relief. O2 sat >92% at room air, denies shortness of breath. IV fluids maintained. Patient able to get up from bed with one person assist, uses bedside commode or toilet with adequate urine output. Safety precautions observed all the time.
[2022-02-10] MEDS: PANTOPRAZOLE DR 40 MG TABLET PO (06:32)
[2022-02-10] MEDS: OXYCODONE IR 5 MG TABLET PO (06:38)
[2022-02-10 06:47] LABS: Add Manual Diff / Slide Review NO; Basophils Absolute Auto 0 /uL (0-100); Basophils Percent Auto 0.6 % (0-2); Eosinophils Absolute Auto 100 /uL (0-450); Hematocrit 36.2 % (36-46); Hemoglobin 11.9 g/dL (12.0-16.0); Lymphocytes Absolute Auto 2400 /uL (1100-4500); Lymphocytes Percent Auto 29.7 % (25-40); Monocytes Absolute Auto 600 /uL (0-900); Monocytes Percent Auto 7.2 % (3-14); Neutrophils Absolute Auto 4900 /uL (1500-7000); Neutrophils Percent Auto 61.5 % (50-75); Platelet Count 257 X10^3/uL (150-400); Red Blood Cell Count 3.85 X10^6/uL (4.0-5.2); Red Cell Distribution Width 13.5 % (11.6-14.8)
[2022-02-10 07:00] VITALS: O2SAT 99
--- NOTE | 2022-02-10 07:13 | P.DS_ITS ---
History of Present Illness History of Present Illness Date Patient Seen: 02/10/22 Time Patient Seen: 07:13 Chief complaint: [facility] W/JUAN SALPINGECTOMIES *OPB* Narrative: Status post laparoscopic supracervical hysterectomy with bilateral salpingo oophorectomy and lysis of adhesions Discharge Providers Provider Discharge Date: 02/10/22 Primary care physician: GAYE Maynard Discharge provider: Soraida Hein MD Summary Hospital Course Discharge Diagnosis: Patient with pelvic pain and menorrhagia from uterine fibroids status post laparoscopic supracervical hysterectomy with bilateral salpingo oophorectomy and lysis of adhesions Hospital Course: Patient underwent a laparoscopic supracervical hysterectomy, bilateral salpingo oophorectomy, with lysis of adhesions Status at Discharge Cognitive/behavioral status at discharge: oriented Functional status at discharge: independent ambulation Overall status at discharge: patient is progressing back to baseline Time Spent with Patient Time spent: Less than 30 minutes Exam Vital Signs (past 8 hours): - 02/10/22 01:00 02/10/22 05:15 Temperature 97.2 F L 97.5 F L Pulse Rate 76 73 Respiratory Rate 16 16 Blood Pressure 91/53 L 95/52 L Pulse Oximetry 98 97 Oxygen Delivery Method Room Air Oxygen Flow Rate 0 Narrative Exam Narrative: Abdomen is soft, minimally tender. Incisions are clean, dry, intact. No vaginal bleeding. Extremities without edema and nontender Objective Labs Result Diagrams: 02/10/22 06:12 Labs: Laboratory Results - last 24 hr 02/10/22 06:12 WBC 8.0 RBC 3.85 L Hgb 11.9 L Hct 36.2 MCV 94.0 MCH 31.0 MCHC 33.0 RDW 13.5 Plt Count 257 Neut % (Auto) 61.5 Lymph % (Auto) 29.7 [place] % (Auto) 7.2 Eos % (Auto) 1.0 L Baso % (Auto) 0.6 Neut # (Auto) 4900 Lymph # (Auto) 2400 [place] # (Auto) 600 Eos # (Auto) 100 Baso # (Auto) 0 PFSH Medical History (Updated 02/09/22 @ 13:59 by Kelli Mcdonald RN) ADHD Anxiety Diabetes Facet arthropathy, lumbar History of alcohol abuse Recurrent pancreatitis Tubal ligation evaluation Surgical History (Updated 02/09/22 @ 16:37 by Soraida Hein MD) History of laparoscopic cholecystectomy Family History Father Multiple myeloma Social History household members: significant other Smoking Status: Former smoker alcohol intake: never Discharge Assessment & Plan Assessment and Plan Assessment: Patient is status post laparoscopic supracervical hysterectomy with bilateral salpingo oophorectomy and lysis adhesions for chronic pelvic pain and menorrhagia from uterine fibroids. Patient is doing well. She will be discharged home to follow-up in 1 week. Routine precautions reviewed. Discharge Plan Discharge Plan Patient Disposition: Home Discharge orders & Medications Discharge Orders: Discharge (Order); Ordered 02/10/22 Ordered By: Soraida Hein Prescriptions: New oxycodone-acetaminophen [Percocet] 5-325 mg tablet 1 tab PO Q4-6H PRN (Reason: pain) Qty: 30 0RF Continued levothyroxine 50 mcg tablet 50 mcg PO DAILY 90 Days 0RF omeprazole 40 mg capsule,delayed release(DR/EC) 40 mg PO DAILY 90 Days 0RF zolpidem 5 mg tablet 5 mg PO HS MDD 15mg Qty: 90 1RF Hold Instructions: not taking Rx Instructions: may take in addition to 10mg tablet for total of 15mg PRN zolpidem [Ambien] 10 mg tablet 10 mg PO HS PRN (Reason: insomnia) Qty: 90 1RF bupropion HCl [Wellbutrin XL] 300 mg tablet extended release 24 hr 300 mg PO QDAY Qty: 90 1RF lithium carbonate 300 mg capsule 300 mg PO BEDTIME Qty: 90 3RF Rx Instructions: take with food prazosin 5 mg capsule 10 mg PO BEDTIME Qty: 180 3RF Rx Instructions: Take 2 caps by mouth at bedtime. lamotrigine 150 mg tablet 150 mg PO QDAY Qty: 30 2RF methylphenidate HCl 36 mg tablet extended release 24hr 72 mg PO QDAY Qty: 60 0RF Rx Instructions: Take 2 tabs by mouth each day. methylphenidate HCl 36 mg tablet extended release 24hr 72 mg PO QAM Qty: 60 0RF methylphenidate HCl 36 mg tablet extended release 24hr 72 mg PO QAM Qty: 60 0RF cholecalciferol (vitamin D3) 50 mcg (2,000 unit) capsule 8,000 unit PO DAILY 0RF Label Comments: dose updated per Citlalli HUIZAR acyclovir 400 mg Tablet 400 mg PO BID Qty: 0 0RF alprazolam [Xanax] 0.5 mg tablet 1 mg PO BID PRN (Reason: anxiety) Qty: 60 0RF trazodone 150 mg tablet See Rx Instructions PO BEDTIME PRN (Reason: sleep) Qty: 90 1RF Rx Instructions: Take 1/2 tab -1 tab by mouth at bedtime for sleep estradiol 0.01 % (0.1 mg/gram) cream 1 g vaginal DAILY Qty: 42.5 0RF Label Comments: stopped Rx Instructions: for 14 days then twice weekly omega-3 fatty acids [Fish Oil Concentrate] 1,000 mg capsule 1,000 mg PO DAILY 0RF atorvastatin [Lipitor] 10 mg tablet 10 mg PO BEDTIME 0RF mirabegron 25 mg tablet extended release 24 hr 25 mg PO DAILY 0RF insulin aspart U-100 1 units subcut TID PRN (Reason: Hyperglycemia) 0RF Rx Instructions: sliding scale for meals propranolol 10 mg tablet 10 mg PO DAILY 0RF Follow up/Referrals: Felicita Jeffrey ARNP [Primary Care Provider] - Soraida Hein MD [Physician] - 1 Week Diet/Activity/Treatments Diet: Carb-consistent/Diabetic Activity: Nothing in vagina for 1 week Skin/Wound/Dressing Care Report to your healthcare provider any signs of infection, such as:: chills, fever, increased pain, unusual drainage and unusual redness Dressing: Can get Steri-Strips wet just pat dry. May remove in 1 week Visit Report/Discharge Packet Instructions: DI for Hysterectomy, DI for Laparoscopy Stand Alone Forms: Surgery Discharge Discharge Data Primary Care Provider: Felicita Jeffrey Attending Provider: Soraida Hein Quality VTE Deep Vein Thrombosis/Pulmonary Embolism Present on Admission: No
[2022-02-10 08:05] VITALS: BP 123/62; PULSE 72; RESP 18; TEMP 37.3; O2SAT 99
[2022-02-10] MEDS: buPROPion XL 150 MG TAB 300 MG PO (09:23)
[2022-02-10] MEDS: ACETAMINOPHEN 325 MG TABLET 650 MG PO (09:24)
[2022-02-10] MEDS: ACYCLOVIR 400 MG TABLET PO (09:24)
[2022-02-10] MEDS: LEVOTHYROXINE 50 MCG TABLET PO (09:25)
[2022-02-10] MEDS: OXYBUTYNIN 5 MG ER TAB PO (09:25)
[2022-02-10] MEDS: DOCUSATE 100 MG CAPSULE 200 MG PO (09:25)
[2022-02-10] MEDS: PROPRANOLOL 10 MG TABLET PO (09:26)
--- NOTE | 2022-02-10 10:58 | CM.DANOTE ---
DCP: Case received, EMR reviewed and met with patient. Introduced self and role. Was able to obtain information regarding patient's baseline activity prior to surgery. DCP assessment completed with information currently available. Patient is a 51 year old female who admitted yesterday morning to the care of the [facility] team. PCP: Dr. Jeffrey. Payer: confirmed: Medicare/Medicaid. Patient came to the hospital via private vehicle for a surgical procedure. Patient had laparoscopic supracervical hysterectomy with bilateral salpingo oopherectomy. Patient has history of postmenopausal bleeding and pelvic pain. Met with patient in her room. She was sitting up in bed, alert and oriented, pleasant. Patient resides here in [place] with her boyfriend. She is independent at her baseline. P: Patient is to be going home today. Belle Robertson RN/Record Tester Discharge Planning/Care Management CM Discharge Assessment Start: 02/10/22 10:56 Freq: Status: Active Protocol: Document 02/10/22 10:57 (Rec: 02/10/22 10:58 [id number]) Discharge Planning Assessment Assigned Manufacturing Teacher Belle Robertson RN/Record Tester Advance Directives? No History Provided By Patient,Medical Record Prior Living Arrangements House Household Members significant other Type of transporation used prior to Drives own vehicle admit Independent with ADL's Yes Is patient alert and oriented? Yes Caregiver for Another No Barriers to Discharge No Discharge Plan Home Transportation Arrangement Partner Referrals Initiated None needed Whiteboard Updated in Patient Room with Yes name and ext. 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 Primary Language [employer] Required No Height 5 ft 7.75 in Weight 155 lb Body Mass Index (BMI) 23.7 Hx Anesthesia Reactions Pt states she tends to need more narcotics than average person Anesthesia Review Requested No Meteorological Observer No alcohol intake current alcohol intake frequency 0-2 drinks per day Alcohol Intake Frequency Other: Hx of ETOH abuse Smoking Status Former smoker Substance Use Type does not use,former substance user Pain Present Pain Reported Patient is completely paralyzed or No completely immobile Mental Status Oriented to own ability Hx Sleep Apnea No Currently Taking a Beta Jerald No Anti-Coagulant Therapy No Hx Pacemaker/ICD No Pacemaker Rep Required? No Genitourinary Symptoms Pelvic Pain,Non-Menses Vaginal Bleeding Urinary Catheter Present No Hx Urinary Self Catheterization No Comment Postmenopausal bleeding after intercourse Diabetes Yes: Type I Patient No Lactating No Marital Status Single Patient Discharge Plan Description Return Home Advance Directives? No
--- NOTE | 2022-02-10 11:07 | PC.NURSE ---
Pt received lying in bed alert. She is A&Ox3, VSS, afebrile on RA. She is voiding without difficulty, and tolerating breakfast well. She denies n/v or SOB. MD at bedside this a.m. evaluating patient and clearing her for discharge home. IVF is saline locked and she ambulates around the nursing station multiple times. Dressings c/d/I no discharge reported. She reports abdominal pain well controlled with toradol, tylenol and prn oxycodone at a tolerable level of 5/10. Pt has and insulin pump and a glucose sensor. Received MD orders clear for patient to dose per home regimen.
== END 2022-02-10 10:40 | disposition home or self-care (01) ==
LOC: OR 13:29 → AC 13:32
PROVIDERS: PCP Nurse Practitioner; Referring Provider Specialist; Visit Provider Specialist
PROC: 0UT94ZL Resection of Uterus, Supracervical, Percutaneous Endoscopic Approach (ICD-10-PCS; CPT 58542; principal; 2022-02-09 14:30)
DX: N95.0 Postmenopausal bleeding (principal); N73.6 Female pelvic peritoneal adhesions (postinfective); D25.1 Intramural leiomyoma of uterus; N83.10 Corpus luteum cyst of ovary, unspecified side; N83.8 Other noninflammatory disorders of ovary, fallopian tube and broad ligament; Z79.4 Long term (current) use of insulin; Z96.41 Presence of insulin pump (external) (internal); E10.9 Type 1 diabetes mellitus without complications
CPT/HCPCS: 58542; 36415; 82962; 85025; J0171; J0690; J1815; J1885; J2405; J2704; J2795; J3010

== ENCOUNTER → 2022-05-31 19:05 | Outpatient (CLI) | payer MEDICARE, MEDICAID, SELFPAY ==
[2022-02-09 17:26] VITALS: BMI 23.8
--- NOTE | 2022-05-31 19:09 | DI.RAD.S_ITS ---
PROCEDURE: XR HAND RT MIN 3V INDICATIONS: R 5th metacarpal pain/injury TECHNIQUE: 3 views of the hand(s) acquired. COMPARISON: None. FINDINGS: Bones: No fractures or dislocations. Carpal bones are normally aligned. No suspicious bony lesions. Soft tissues: No suspicious soft tissue calcifications. IMPRESSION: No evidence acute bony abnormality of the right hand. If clinical suspicion and/or symptoms persist, further assessment with repeat plain films, or advanced imaging (e.g., CT, MRI, or bone scan) may be helpful for further assessment. Dictated by: Cameron Raymundo M.D. on 05/31/2022 at 19:36 Approved by: Cameron Raymundo M.D. on 05/31/2022 at 19:37
== END ==
PROVIDERS: PCP Nurse Practitioner; Referring Provider Physician Assistant; Visit Provider Physician Assistant
DX: M79.641 Pain in right hand (principal); F31.81 Bipolar II disorder; F10.21 Alcohol dependence, in remission; F90.2 Attention-deficit hyperactivity disorder, combined type; F43.10 Post-traumatic stress disorder, unspecified
CPT/HCPCS: 73130; 90837

== ENCOUNTER → 2022-11-30 15:36 | Outpatient (CLI) | payer MEDICARE, MEDICAID, SELFPAY ==
[2022-02-09 17:26] VITALS: BMI 23.8
[2022-11-30 16:19] LABS: Add Manual Diff / Slide Review NO; Basophils Absolute Auto 100 /uL (0-100); Basophils Percent Auto 0.7 % (0-2); Eosinophils Absolute Auto 100 /uL (0-450); Eosinophils Percent Auto 0.9 % (2-4); Hematocrit 43.8 % (36-46); Hemoglobin 14.1 g/dL (12.0-16.0); Lymphocytes Absolute Auto 2200 /uL (1100-4500); Lymphocytes Percent Auto 22.9 % (25-40); Mean Corpuscular HGB Conc 32.1 % (30-36); Mean Corpuscular Hemoglobin 31.6 PG (26-34); Mean Corpuscular Volume 98.5 fL (80-100); Monocytes Absolute Auto 600 /uL (0-900); Neutrophils Absolute Auto 6600 /uL (1500-7000); Neutrophils Percent Auto 69.5 % (50-75); Platelet Count 318 X10^3/uL (150-400); Red Blood Cell Count 4.45 X10^6/uL (4.0-5.2); Red Cell Distribution Width 13.1 % (11.6-14.8); White Blood Cell Count 9.5 X10^3/uL (4.5-11.0)
[2022-11-30 17:09] LABS: Free T4, Direct Thyroxine 1.17 ng/dL (0.78-2.19)
[2022-11-30 17:23] LABS: Thyroid Stimulating Hormone 1.63 uIU/mL (0.47-4.68)
[2022-11-30 17:25] LABS: Cholesterol 128 mg/dL (140-199); HDL Cholesterol 59 mg/dL (40-60); LDL Cholesterol Calculated 54 mg/dL (<100); Triglycerides 76 mg/dL (35-150)
== END ==
PROVIDERS: PCP Nurse Practitioner; Referring Provider Student in an Organized Health Care Education/Training Program; Visit Provider Psychiatry & Neurology Neurology
DX: E03.8 Other specified hypothyroidism (principal); Z51.81 Encounter for therapeutic drug level monitoring; E11.42 Type 2 diabetes mellitus with diabetic polyneuropathy; Z79.4 Long term (current) use of insulin; E08.649 Diabetes mellitus due to underlying condition with hypoglycemia without coma
CPT/HCPCS: 36415; 80061; 84439; 84443; 85025

== ENCOUNTER 2023-11-18 20:50 | Emergency (ER) | payer MEDICARE, MEDICAID, SELFPAY ==
[2023-10-03 12:56] VITALS: BMI 23.8
[2023-11-18 20:59] VITALS: BP 135/76; PULSE 106; RESP 18; TEMP 36.1; O2SAT 99
[2023-11-18 21:57] VITALS: PULSE 95; O2SAT 99
[2023-11-18 21:58] VITALS: BP 111/60; PULSE 97; O2SAT 97
[2023-11-18 22:00] VITALS: BP 114/59; PULSE 93; O2SAT 97
--- NOTE | 2023-11-18 23:08 | PC.NURSE ---
Ambulated to bathroom. Returned to room and found standing facing the wall. Staff attempted to coax eating the healthy snacks provided. Door closed. Moments later diana burst out of room in an emotional disconnect. Attempting to leave the ER and crying. Due to her current disorganized state, she was unable to open the unlocked ER door for departure. Staff approached calmly and attempted therapeutic communication to discover what was causing her distress. Rambling and disjointed speech but returned to her room unassisted.
[2023-11-19] VITALS (8 sets, daily range): BP systolic 99–121; BP diastolic 55–76; PULSE 68–100; RESP 17–18; O2SAT 97–100
--- NOTE | 2023-11-19 01:10 | ED_ITS ---
HPI - General Adult <Celeste Healy MD - Last Filed: 11/25/23 01:40> General Chief complaint: Diabetic Problem Stated complaint: low blood sugar says she is not safe Time Seen by Provider: 11/18/23 23:06 Source: patient Mode of arrival: Ambulatory History of Present Illness HPI narrative: 53-year-old woman with a history of generalized anxiety disorder, obsessive- compulsive disorder bipolar 2, ADHD and history of alcohol use disorder not currently drinking, hyperlipidemia, hypothyroidism. Patient presents to the emergency room this evening complaining of low blood sugars, a feeling that she is unsafe at home, worsening depression symptoms, states she has not picked up her multiple psychiatric medications for a number of weeks. She is quite tangential it is unclear what medication she is taking, what she isn't taking. She states that she has not slept for 3 nights and is frustrated with medication refills. Remainder of complaints are disorganized enough I am unable to make sense of her requests. She states that she feels unsafe but also states that she is not suicidal and does not have a suicide plan Related Data Home Medications Medication Instructions Recorded Confirmed acyclovir 400 mg tablet 400 mg PO BID ##0 01/21/18 11/19/23 levothyroxine 50 mcg tablet 50 mcg PO DAILY 90 days 04/23/18 11/19/23 omega-3 fatty acids 1,000 mg 1,000 mg PO DAILY 01/24/19 11/19/23 capsule (Fish Oil Concentrate) atorvastatin 10 mg tablet (Lipitor) 10 mg PO BEDTIME 07/02/19 11/19/23 cholecalciferol (vitamin D3) 50 8,000 unit PO DAILY 01/29/20 11/19/23 mcg (2,000 unit) capsule alprazolam 0.5 mg tablet 1 mg PO BID PRN anxiety 11/19/23 11/19/23 duloxetine 60 mg capsule,delayed 60 mg PO BID 11/19/23 11/19/23 release insulin lispro 100 unit/mL 0 - 100 unit SUBCUT DAILY 11/19/23 11/19/23 subcutaneous pen (Humalog KwikPen (U-100) Insulin) mirabegron 50 mg tablet,extended 50 mg PO DAILY 11/19/23 11/19/23 release 24 hr (Myrbetriq) omeprazole 40 mg capsule,delayed 40 mg PO BID 11/19/23 11/19/23 release trazodone 150 mg tablet 75 - 150 mg PO ONCE PM PRN insomnia 11/19/23 11/19/23 Previous Rx's Medication Instructions Recorded lithium carbonate 300 mg capsule 300 mg PO BEDTIME #90 caps 08/27/23 prazosin 5 mg capsule 10 mg (2 x 5 mg) PO BEDTIME #180 09/05/23 caps bupropion HCl 300 mg 24 hr tablet, 300 mg PO QDAY #90 tabs 09/18/23 extended release (Wellbutrin XL) lamotrigine 150 mg tablet 150 mg PO DAILY #30 tabs 11/05/23 zolpidem 10 mg tablet 10 mg PO BEDTIME PRN insomnia #30 11/16/23 tabs Allergies Allergy/AdvReac Type Severity Reaction Status Date / Time adhesive tape Allergy Unknown Verified 11/19/23 07:00 morphine AdvReac Unknown Pt states Verified 11/19/23 07:00 very sharp pain in pancreas area methylphenidate ER (Trigen AdvReac ?creeping Uncoded 11/19/23 08:34 assistant controller) out of her skin and feeling jittery.? Review of Systems <Celeste Healy MD - Last Filed: 11/25/23 01:40> Review of Systems ROS Unobtainable: Unobtainable due to mental condition Patient History <Celeste Healy MD - Last Filed: 11/25/23 01:40> Medical History ADHD Anxiety Diabetes Facet arthropathy, lumbar History of alcohol abuse Recurrent pancreatitis Tubal ligation evaluation Surgical History History of laparoscopic cholecystectomy Family History Father Multiple myeloma Social History household members: significant other Smoking Status: Former smoker alcohol intake: never Smoking Status: Former smoker alcohol intake frequency: 0-2 drinks per day Substance Use Type: marijuana Exam <Celeste Healy MD - Last Filed: 11/25/23 01:40> Initial Vital Signs Initial Vital Signs: Vital Signs Temperature 97 F L 11/18/23 20:59 Pulse Rate 106 H 11/18/23 20:59 Respiratory Rate 18 11/18/23 20:59 Blood Pressure 135/76 11/18/23 20:59 Pulse Oximetry 99 11/18/23 20:59 Oxygen Delivery Method Room Air 11/18/23 20:59 General: Healthy appearing, in no acute distress. Somewhat thin, pacing HEENT: Moist mucous membranes, normal sclera with reactive pupils, Respiratory: Full and symmetrical air movement Cardiac: Regular rate and rhythm no murmurs no bruits Abdomen: Soft, nontender, good bowel tones, no flank pain Skin: Warm and dry, no rashes Neurologic: Grossly neurologically intact with no obvious asymmetries or abnormalities Extremities: No trauma, well perfused Psych: Pressured, tangential, she does have fluent speech, relatively reasonable eye contact but very disorganized thought process <Lin Day DO - Last Filed: 11/19/23 15:10> Initial Vital Signs Initial Vital Signs: Vital Signs Temperature 97 F L 11/18/23 20:59 Pulse Rate 106 H 11/18/23 20:59 Respiratory Rate 18 11/18/23 20:59 Blood Pressure 135/76 11/18/23 20:59 Pulse Oximetry 99 11/18/23 20:59 Oxygen Delivery Method Room Air 11/18/23 20:59 Course <Celeste Healy MD - Last Filed: 11/25/23 01:40> Orders Ordered: Discontinued Medications Bupropion HCl (Bupropion Xl 150 Mg Tab) 300 mg PO NOW ONE Stop: 11/19/23 08:58 Last Admin: 11/19/23 09:23 Dose: 300 mg Documented By: GARRETT Lamotrigine (Lamotrigine 100 Mg Tablet) 150 mg PO NOW ONE Stop: 11/19/23 08:58 Last Admin: 11/19/23 09:23 Dose: 150 mg Documented By: GARRETT Olanzapine (Olanzapine Odt 10 Mg Tab) 20 mg PO NOW ONE Stop: 11/19/23 01:52 Last Admin: 11/19/23 02:02 Dose: 20 mg Documented By: JAMES Vital Signs Vital signs: Vital Signs - 8 hr 11/19/23 07:53 11/19/23 08:19 11/19/23 08:30 Pulse Rate 68 69 71 Respiratory Rate 18 Blood Pressure 103/59 L Pulse Oximetry 99 98 97 Oxygen Delivery Method Room Air 11/19/23 11:22 11/19/23 11:22 11/19/23 11:23 Pulse Rate 79 84 Respiratory Rate 17 Blood Pressure 99/55 L Pulse Oximetry 100 100 Oxygen Delivery Method Room Air 11/19/23 13:06 11/19/23 13:07 11/19/23 13:07 Pulse Rate 78 Respiratory Rate Blood Pressure 104/55 L Pulse Oximetry 97 97 Oxygen Delivery Method <Lin Day DO - Last Filed: 11/19/23 15:10> Orders Ordered: Discontinued Medications Bupropion HCl (Bupropion Xl 150 Mg Tab) 300 mg PO NOW ONE Stop: 11/19/23 08:58 Last Admin: 11/19/23 09:23 Dose: 300 mg Documented By: GARRETT Lamotrigine (Lamotrigine 100 Mg Tablet) 150 mg PO NOW ONE Stop: 11/19/23 08:58 Last Admin: 11/19/23 09:23 Dose: 150 mg Documented By: GARRETT Olanzapine (Olanzapine Odt 10 Mg Tab) 20 mg PO NOW ONE Stop: 11/19/23 01:52 Last Admin: 11/19/23 02:02 Dose: 20 mg Documented By: JAMES Vital Signs Vital signs: Vital Signs - 8 hr 11/19/23 07:53 11/19/23 08:19 11/19/23 08:30 Pulse Rate 68 69 71 Respiratory Rate 18 Blood Pressure 103/59 L Pulse Oximetry 99 98 97 Oxygen Delivery Method Room Air 11/19/23 11:22 11/19/23 11:22 11/19/23 11:23 Pulse Rate 79 84 Respiratory Rate 17 Blood Pressure 99/55 L Pulse Oximetry 100 100 Oxygen Delivery Method Room Air 11/19/23 13:06 11/19/23 13:07 11/19/23 13:07 Pulse Rate 78 Respiratory Rate Blood Pressure 104/55 L Pulse Oximetry 97 97 Oxygen Delivery Method Medical Decision Making <Celeste Healy MD - Last Filed: 11/25/23 01:40> Lab Data 11/19/23 02:18 11/19/23 02:18 Labs: Lab Results 11/19/23 11/19/23 Range/Units 02:18 08:50 WBC 11.9 H (4.5-11.0) X10^3/uL RBC 4.21 (4.0-5.2) X10^6/uL Hgb 14.0 (12.0-16.0) g/dL Hct 41.3 (36-46) % MCV 98.1 (80-100) fL MCH 33.2 (26-34) PG MCHC 33.8 (30-36) % RDW 13.4 (11.6-14.8) % Plt Count 329 (150-400) X10^3/uL Neut % (Auto) 63.5 (50-75) % Lymph % (Auto) 27.3 (25-40) % [place] % (Auto) 7.6 (3-14) % Eos % (Auto) 1.0 L (2-4) % Baso % (Auto) 0.6 (0-2) % Neut # (Auto) 7600 H (4282-8213) /uL Lymph # (Auto) 3300 (7612-2395) /uL [place] # (Auto) 900 (0-900) /uL Eos # (Auto) 100 (0-450) /uL Baso # (Auto) 100 (0-100) /uL Sodium 135 L (137-145) mmol/L Potassium 3.4 (3.4-5.1) mmol/L Chloride 100 (98-107) mmol/L Carbon Dioxide 28 (22-32) mmol/L BUN 15 (7-17) mg/dL Creatinine 0.51 L (0.52-1.04) mg/dL Estimated GFR > 60 (>60) mL/min BUN/Creatinine Ratio 29.4 H (6-22) Glucose 62 L (70-100) mg/dL Calcium 9.9 (8.4-10.2) mg/dL Total Bilirubin 0.7 (0.2-1.3) mg/dL AST 28 (14-36) IU/L ALT 24 (<35) IU/L Alkaline Phosphatase 52 (38-126) U/L Total Protein 7.7 (6.3-8.2) g/dL Albumin 4.6 (3.5-5.0) g/dL Globulin 3.1 (1.7-4.1) g/dL Albumin/Globulin Ratio 1.5 (1.0-2.8) TSH 1.77 (0.47-4.68) uIU/mL U Opiates 300ng/mL cut Negative (Negative) Ur Oxycodone Screen Negative (Negative) Urine Methadone Screen Negative (Negative) Ur Barbiturates Screen Negative (Negative) Lamotrigine 1.7 L (2.0-20.0) ug/mL U Tricyclic Antidepress Negative (Negative) Ur Phencyclidine Scrn Negative (Negative) Ur Amphetamines Screen Negative (Negative) U Methamphetamines Scrn Negative (Negative) Ur MDMA Scrn (Ecstasy) Negative (Negative) U Benzodiazepines Scrn Positive H (Negative) [place] 0.3 L (0.6-1.2) mmol/L Urine Cocaine Screen Negative (Negative) U Marijuana (THC) Screen Positive H (Negative) Urine pH Normal (Normal) Urine Specific [place] Normal (Normal) Ethyl Alcohol < 10 ( - 10) mg/dL Ur Creatinine Normal (Normal) Point of Care Testing Glucose POC 100 Urine Dip Bedside Urine Glucose Negative Bedside Urine Bilirubin - Negative Bedside Urine Ketone - Negative Urine Specific [place] 1.010 Bedside Urine Occult Blood - Negative Bedside Urine pH 6.0 Bedside Urine Protein - Negative Bedside Urine Urobilinogen - Negative Bedside Urine Nitrite - Negative Bedside Urine Leukocytes - Negative Esterase Point of care testing: Point of Care Testing Glucose POC 100 Urine Dip Bedside Urine Glucose Negative Bedside Urine Bilirubin - Negative Bedside Urine Ketone - Negative Urine Specific [place] 1.010 Bedside Urine Occult Blood - Negative Bedside Urine pH 6.0 Bedside Urine Protein - Negative Bedside Urine Urobilinogen - Negative Bedside Urine Nitrite - Negative Bedside Urine Leukocytes - Negative Esterase MDM Narrative Medical decision making narrative: CC: Feeling unsafe at home with pressured speech Complicating co-morbidities: Bipolar 2, OCD, PTSD, ADHD, generalized anxiety disorder, diabetes, hypothyroidism, post menopause on estrogen replacement Data collected from: patient Social determinants of health that may influence the patients condition: Patient is concerned about her living condition and states that she is so disorganized that her house and cleaning products can never be completed to the point that she is unable to see the floor in her home at all anymore Medical records reviewed: Psychosocial notes over the last number of months reviewed. Psychiatry note from October 29 is reviewed. Medications at that time MEDICATIONS * Continue alprazolam 1 mg twice daily as needed for severe anxiety * Continue bupropion XL 300 mg daily * Continue lamotrigine 150 mg daily * Continue lithium 300 mg at bedtime for the time being until Li level. Will then adjust dose. * Continue methylphenidate 72 mg daily * Continue prazosin 10 mg at bedtime targeting nightmares * Continue trazodone 75-150 mg at bedtime * Continue zolpidem 10 mg at bedtime Differential considered: Acute verónica, medication withdrawal, infectious etiology Exam documented above, pertinent findings include: Physical exam is unremarkable. She is tangential with disorganized thought process. She is not responding to internal stimuli. She is difficult to refocus. Lab Test results independently reviewed as above. Pertinent findings: CBC is unremarkable, mild leukocytosis without left shift do not suspect infection Chemistries are reassuring. Her blood sugar is 62. She is given a snack and is otherwise asymptomatic Lamotrigine level is pending [place] level is low at 0.3 (0.6-1.2) TSH 1.77 Alcohol level is undetectable Independently reviewed EKG: Sinus rhythm at a rate of 83. QTC is 453. Normal intervals, normal axis. No acute ischemic changes Consultations: Treatments: 20 mg of p.o. Zyprexa Re-evaluations:330am after Zyprexa, patient is sleeping comfortably for the 1st time and reportedly 3 days. She is not yet given his urine however I think sleep is going to be more therapeutic and obtaining urine at this point and will not try to wake her up Discussion: Initial concern after discussion with this woman is acute verónica, gravely disabled and needing to be detained. She agrees to try 20 mg of Zyprexa to see if this may help with sleep and agrees to blood draw. She has multiple requests draw blood to make sure that her neuropsychiatric self can be tested. She has patiently waited in the room for (2 hours due to current volumes in the emergency department) and after our discussion was cooperative with blood draw, urine testing and medication administration. I am concerned that with her disorganized thinking that she is not going to be a good lulu voluntary admit to deal with her acute verónica. We will discuss with DCR are once urine and TSH are back. If the Zyprexa is helpful in getting her a bit of sleep she may be a bit less disorganized and willing to consider a voluntary admission at that point. <Lin Day, DO - Last Filed: 11/19/23 15:10> Lab Data Labs: Lab Results 11/19/23 11/19/23 Range/Units 02:18 08:50 WBC 11.9 H (4.5-11.0) X10^3/uL RBC 4.21 (4.0-5.2) X10^6/uL Hgb 14.0 (12.0-16.0) g/dL Hct 41.3 (36-46) % MCV 98.1 (80-100) fL MCH 33.2 (26-34) PG MCHC 33.8 (30-36) % RDW 13.4 (11.6-14.8) % Plt Count 329 (150-400) X10^3/uL Neut % (Auto) 63.5 (50-75) % Lymph % (Auto) 27.3 (25-40) % [place] % (Auto) 7.6 (3-14) % Eos % (Auto) 1.0 L (2-4) % Baso % (Auto) 0.6 (0-2) % Neut # (Auto) 7600 H (9833-3533) /uL Lymph # (Auto) 3300 (9069-1225) /uL [place] # (Auto) 900 (0-900) /uL Eos # (Auto) 100 (0-450) /uL Baso # (Auto) 100 (0-100) /uL Sodium 135 L (137-145) mmol/L Potassium 3.4 (3.4-5.1) mmol/L Chloride 100 (98-107) mmol/L Carbon Dioxide 28 (22-32) mmol/L BUN 15 (7-17) mg/dL Creatinine 0.51 L (0.52-1.04) mg/dL Estimated GFR > 60 (>60) mL/min BUN/Creatinine Ratio 29.4 H (6-22) Glucose 62 L (70-100) mg/dL Calcium 9.9 (8.4-10.2) mg/dL Total Bilirubin 0.7 (0.2-1.3) mg/dL AST 28 (14-36) IU/L ALT 24 (<35) IU/L Alkaline Phosphatase 52 (38-126) U/L Total Protein 7.7 (6.3-8.2) g/dL Albumin 4.6 (3.5-5.0) g/dL Globulin 3.1 (1.7-4.1) g/dL Albumin/Globulin Ratio 1.5 (1.0-2.8) TSH 1.77 (0.47-4.68) uIU/mL U Opiates 300ng/mL cut Negative (Negative) Ur Oxycodone Screen Negative (Negative) Urine Methadone Screen Negative (Negative) Ur Barbiturates Screen Negative (Negative) Lamotrigine 1.7 L (2.0-20.0) ug/mL U Tricyclic Antidepress Negative (Negative) Ur Phencyclidine Scrn Negative (Negative) Ur Amphetamines Screen Negative (Negative) U Methamphetamines Scrn Negative (Negative) Ur MDMA Scrn (Ecstasy) Negative (Negative) U Benzodiazepines Scrn Positive H (Negative) [place] 0.3 L (0.6-1.2) mmol/L Urine Cocaine Screen Negative (Negative) U Marijuana (THC) Screen Positive H (Negative) Urine pH Normal (Normal) Urine Specific [place] Normal (Normal) Ethyl Alcohol < 10 ( - 10) mg/dL Ur Creatinine Normal (Normal) Point of Care Testing Glucose POC 100 Urine Dip Bedside Urine Glucose Negative Bedside Urine Bilirubin - Negative Bedside Urine Ketone - Negative Urine Specific [place] 1.010 Bedside Urine Occult Blood - Negative Bedside Urine pH 6.0 Bedside Urine Protein - Negative Bedside Urine Urobilinogen - Negative Bedside Urine Nitrite - Negative Bedside Urine Leukocytes - Negative Esterase Point of care testing: Point of Care Testing Glucose POC 100 Urine Dip Bedside Urine Glucose Negative Bedside Urine Bilirubin - Negative Bedside Urine Ketone - Negative Urine Specific [place] 1.010 Bedside Urine Occult Blood - Negative Bedside Urine pH 6.0 Bedside Urine Protein - Negative Bedside Urine Urobilinogen - Negative Bedside Urine Nitrite - Negative Bedside Urine Leukocytes - Negative Esterase MDM Narrative Medical decision making narrative: CC: Feeling unsafe at home with pressured speech Complicating co-morbidities: Bipolar 2, OCD, PTSD, ADHD, generalized anxiety disorder, diabetes, hypothyroidism, post menopause on estrogen replacement Data collected from: patient Social determinants of health that may influence the patients condition: Patient is concerned about her living condition and states that she is so disorganized that her house and cleaning products can never be completed to the point that she is unable to see the floor in her home at all anymore Medical records reviewed: Psychosocial notes over the last number of months reviewed. Psychiatry note from October 29 is reviewed. Medications at that time MEDICATIONS * Continue alprazolam 1 mg twice daily as needed for severe anxiety * Continue bupropion XL 300 mg daily * Continue lamotrigine 150 mg daily * Continue lithium 300 mg at bedtime for the time being until Li level. Will then adjust dose. * Continue methylphenidate 72 mg daily * Continue prazosin 10 mg at bedtime targeting nightmares * Continue trazodone 75-150 mg at bedtime * Continue zolpidem 10 mg at bedtime Differential considered: Acute verónica, medication withdrawal, infectious etiology Exam documented above, pertinent findings include: Physical exam is unremarkable. She is tangential with disorganized thought process. She is not responding to internal stimuli. She is difficult to refocus. Lab Test results independently reviewed as above. Pertinent findings: CBC is unremarkable, mild leukocytosis without left shift do not suspect infection Chemistries are reassuring. Her blood sugar is 62. She is given a snack and is otherwise asymptomatic Lamotrigine level is pending [place] level is low at 0.3 (0.6-1.2) TSH 1.77 Alcohol level is undetectable Independently reviewed EKG: Sinus rhythm at a rate of 83. QTC is 453. Normal intervals, normal axis. No acute ischemic changes Consultations: Treatments: 20 mg of p.o. Zyprexa Re-evaluations:330am after Zyprexa, patient is sleeping comfortably for the 1st time and reportedly 3 days. She is not yet given his urine however I think sleep is going to be more therapeutic and obtaining urine at this point and will not try to wake her up Discussion: Initial concern after discussion with this woman is acute verónica, gravely disabled and needing to be detained. She agrees to try 20 mg of Zyprexa to see if this may help with sleep and agrees to blood draw. She has multiple requests draw blood to make sure that her neuropsychiatric self can be tested. She has patiently waited in the room for (2 hours due to current volumes in the emergency department) and after our discussion was cooperative with blood draw, urine testing and medication administration. I am concerned that with her disorganized thinking that she is not going to be a good lulu voluntary admit to deal with her acute verónica. We will discuss with DCR are once urine and TSH are back. If the Zyprexa is helpful in getting her a bit of sleep she may be a bit less disorganized and willing to consider a voluntary admission at that point. Dr. Day-patient seen evaluated by myself patient was sleepy difficult to interact with. Mixed signals about if she was voluntary or not voluntary. DCR was called however they recommended voluntary placement. Social work came to evaluate her ultimately decided that she was safe to go home. She was very sleepy still from the [facility]. No thoughts of suicide or homicide. She very much wanted to go. At this time no need for involuntary placement but encouraged her to return as needed. Discharge Plan Departure Patient Disposition: Home Clinical Impression: Bipolar 1 disorder Instructions: DI for Bipolar Disorder Activity Restrictions/Additional Instructions: *You have been diagnosed with bipolar *What to do: At this time please be sure to take all your medications. Your lithium level was undetected today *Continue to take medications as directed *Follow up with your primary care provider in 2-3 days or call [phone] *Return to ER if you should have increasing confusion thoughts of self-harm or any new, worsening or concerning symptoms Prescriptions: No Action levothyroxine 50 mcg tablet 50 mcg PO DAILY 90 Days bupropion HCl [Wellbutrin XL] 300 mg tablet extended release 24 hr 300 mg PO QDAY Qty: 90 1RF cholecalciferol (vitamin D3) 50 mcg (2,000 unit) capsule 8,000 unit PO DAILY Patient Comments: dose updated per Citlalli HUIZAR acyclovir 400 mg Tablet 400 mg PO BID Qty: 0 lithium carbonate 300 mg capsule 300 mg PO BEDTIME Qty: 90 0RF Rx Instructions: take with food prazosin 5 mg capsule 10 mg PO BEDTIME Qty: 180 1RF Rx Instructions: Take 2 caps by mouth at bedtime. lamotrigine 150 mg tablet 150 mg PO DAILY Qty: 30 2RF zolpidem 10 mg tablet 10 mg PO BEDTIME PRN (Reason: insomnia) Qty: 30 1RF omega-3 fatty acids [Fish Oil Concentrate] 1,000 mg capsule 1,000 mg PO DAILY insulin lispro [Humalog KwikPen Insulin] 100 unit/mL insulin pen 0 - 100 unit SUBCUT DAILY omeprazole 40 mg capsule,delayed release(DR/EC) 40 mg PO BID alprazolam 0.5 mg tablet 1 mg PO BID PRN (Reason: anxiety) trazodone 150 mg tablet 75 - 150 mg PO ONCE PM PRN (Reason: insomnia) duloxetine 60 mg capsule,delayed release(DR/EC) 60 mg PO BID Myrbetriq 50 mg tablet extended release 24 hr 50 mg PO DAILY atorvastatin [Lipitor] 10 mg tablet 10 mg PO BEDTIME Referrals: Felicita Jeffrey ARNP [Primary Care Provider] - Stand Alone Forms: Patient Portal/API ED Sign-out <Celeste Healy MD - Last Filed: 11/25/23 01:40> Cosign ED Attending Cosignature Attestation: I was immediately available in the department for consultation throughout this patient's visit. Celeste Healy MD
[2023-11-19] MEDS: OLANZapine ODT 10 MG TAB 20 MG PO (02:02)
[2023-11-19 02:37] LABS: Add Manual Diff / Slide Review NO; Basophils Absolute Auto 100 /uL (0-100); Basophils Percent Auto 0.6 % (0-2); Eosinophils Absolute Auto 100 /uL (0-450); Hematocrit 41.3 % (36-46); Lymphocytes Absolute Auto 3300 /uL (1100-4500); Lymphocytes Percent Auto 27.3 % (25-40); Mean Corpuscular HGB Conc 33.8 % (30-36); Mean Corpuscular Hemoglobin 33.2 PG (26-34); Mean Corpuscular Volume 98.1 fL (80-100); Monocytes Absolute Auto 900 /uL (0-900); Monocytes Percent Auto 7.6 % (3-14); Neutrophils Absolute Auto 7600 /uL (1500-7000); Neutrophils Percent Auto 63.5 % (50-75); Platelet Count 329 X10^3/uL (150-400); Red Blood Cell Count 4.21 X10^6/uL (4.0-5.2); Red Cell Distribution Width 13.4 % (11.6-14.8); White Blood Cell Count 11.9 X10^3/uL (4.5-11.0)
[2023-11-19 02:42] LABS: Alanine Aminotransferase 24 IU/L (<35); Albumin 4.6 g/dL (3.5-5.0); Albumin Globulin Ratio 1.5 (1.0-2.8); Alkaline Phosphatase 52 U/L (38-126); Aspartate Aminotransferase 28 IU/L (14-36); BUN Creatinine Ratio 29.4 (6-22); Bilirubin Total 0.7 mg/dL (0.2-1.3); Blood Urea Nitrogen 15 mg/dL (7-17); Calcium 9.9 mg/dL (8.4-10.2); Carbon Dioxide 28 mmol/L (22-32); Chloride 100 mmol/L (98-107); Estimated Glomerular Filt Rate > 60 mL/min (>60); Ethanol (ETOH) < 10 mg/dL; Globulin 3.1 g/dL (1.7-4.1); Glucose 62 mg/dL (70-100); HEMOLYSIS < 15 (0-50); Potassium 3.4 mmol/L (3.4-5.1); Sodium 135 mmol/L (137-145); Total Protein 7.7 g/dL (6.3-8.2)
[2023-11-19 02:44] LABS: Lithium 0.3 mmol/L (0.6-1.2)
[2023-11-19 03:20] LABS: TSH w/ Reflex to FT4 1.77 uIU/mL (0.47-4.68)
--- NOTE | 2023-11-19 08:07 | PC.NURSE ---
Pt sleeping when RN entered room. Pt woke up, blood sugar checked and vitals obtained. Pt states she feels more calm after zyprexa.
[2023-11-19] MEDS: lamoTRIgine 100 MG TABLET 150 MG PO (09:23)
[2023-11-19] MEDS: buPROPion XL 150 MG TAB 300 MG PO (09:23)
[2023-11-19 09:47] LABS: UR Morphine/Opiate cutoff 300 Negative (Negative); Ur Creatinine Normal (Normal); Ur Specific Gravity Normal (Normal); Urine Amphetamines Negative (Negative); Urine Barbiturates Negative (Negative); Urine Benzodiazepines Positive (Negative); Urine Cocaine Negative (Negative); Urine MDMA Negative (Negative); Urine Methadone Negative (Negative); Urine Methamphetamines Negative (Negative); Urine Oxycodone Negative (Negative); Urine Phencyclidine Negative (Negative); Urine Tetrahydrocannabinol Positive (Negative); Urine Tricyclic Antidepressant Negative (Negative); Urine pH Normal (Normal)
--- NOTE | 2023-11-19 11:30 | PC.NURSE ---
Pt currently denying SI/HI/ hallucinations. Pt is currently A&Ox4. Pt states she came into the ER last night becrosalind I was not being nice to myself RN asked pt to give more detail. Pt states she cannot give more detail. RN asked again if she has any SI/HI. Pt denied again. Pt states she has been having problems getting her medications from the pharmacy due to manufacture problems
--- NOTE | 2023-11-19 12:26 | CM.SWNOTE ---
WOOD HACKER Assessment WOOD HACKER received consult request from ED requesting input on pt's current MH/safety needs. WOOD HACKER reviewed EMR. Pt is a 53yo F presented to the ER after not feeling safe at home. Per EMR/RN report, it is believed she is currently experiencing some verónica. Pt has a history of working with Dr. Aaron for psychiatry and WOOD HACKER Rosalee Evans for therapeutic intervention. Per [facility] previous notes, Hx of Bipolar 2, PTSD, MONTY, OCD, and ADHD. Per previous [facility] notes, pt has had relatively stable mood recently but attempting to reduce Ambien to improve sleep hygiene. Pt has been working with PCP to stabilize hormones post hysterectomy. Pt has a long history of MH treatment dating back to her 20s and is currently on disability income. Per previous MH notes, pt was documented to be most recently experiencing a depressive episode, recent PHQ9 15 recent MONTY-7 8 from 10/29/23. Per chart, recent diagnosis of type 2 diabetes. Per previous [facility] WOOD HACKER notes, pt is in remission from alcohol use disorder. No other illicit substances listed from what this author could find. Per RN, no current SI/HI/hallucinations, but came to ER because pt didn't feel safe at home, and was unsure of what pt meant. Per RN, medically stable to me. Per RN, Pt has been very sleepy throughout current stay. WOOD HACKER entered room and introduced self and role. Pt resting in bed and initially presented as groggy with eyes closing occasionally. Agreed to sit up more in bed and was appropriately alert for the vast majority of the conversation with this WOOD HACKER. Pt presented as calm, A/Ox4, and normothymic/dysthymic. WNL in eye contact, behavior (not fidgety, noted to be fidgety in previous [facility] assessments), speech, affect, thought, and short term memory. Pt struggled to remember details of past psychiatric Hx from years ago, but overall was able to give Hx of general previous psychiatric and mental health treatment. Pt reported having a headache during interaction due to overhead lights/missing botox for her migraines but managed to calmly and attentively participate in conversation with this WOOD HACKER. Pt reported she has been overall struggling with her MH these past few months. Pt reported she started struggling with obtaining her medication due to a shortage, specifically her methylphenidate and mood stabilizer. Pt reports [facility] attempting to alter her sleeping medication and that has not gone well for her. Pt reports she did not sleep for 3 days straight, just sat on the couch staring at a blank TV, when she started to feel unsafe in her own head, where she drove herself to the ED. Pt reports no SI/HI at this time. Pt does not have a current plan of how she would kill herself. Pt reports not having access to lethal means. Pt reports years ago she attempted to kill herself with months of pills she stock piled as well as a few other attempts many years ago. Pt reports no intention of ending her life at this time. Pt reported she knows what it feels like when she is a danger to herself, and does not feel that way now. Pt reports feeling confident that she is safe to discharge home with close OP follow up. Pt reports being sober for 13 yrs with no intention to start drinking again I don't want to that way. Pt reports marijuana usage. Pt reports having a Hx of 6 or 8 inpt psych stays, both voluntary and involuntary. Pt could not remember exact dates or names of facilities. 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 Pt reports knowing that kind of behavior hurts her and she's working on it with her therapist, LUIS EDUARDO Blue. Pt reports her sister, Bernice, and their relationship is not the best. Pt reports her sister attempts to get her locked up whenever she can. Pt reports her MH diagnoses was genetically passed down from her mom, Bella. her father has cancer. Pt reports she does not want to reach out to her family for support. 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 Pt reports they are a good support for her. Pt reports mainly liking to work with [facility] for support because they are professionals. Pt reports she has learned many tools in therapy to support her in times of struggle, including disassociating when triggered and working on cars with friends. Pt reports she's going to go from here to the [facility] to see friends/work on cars when she discharges. Pt reports other strengths are working with [facility] and eager to continue her OP work with them. Per the current available information from pt's chart, RN report, and pt's current presentation, this WOOD HACKER has found evidence to suggest she is not an acute danger to herself and or others at this time. WOOD HACKER provided pt with the brochure and phone number for the in home crisis response voluntary [facility] team. WOOD HACKER educated pt on their role and the services they can provide. Pt took brochure and was appreciative of the information and reported that she would try and pursue their help the next time she feels this way. WOOD HACKER provided phone number for her direct line to the acute care floor if something changes prior to her dc or if she has other questions. Pt reported being appreciative. WOOD HACKER updated RN on findings. RN to coordinate close OP follow up with [facility] and pt already has an appt with Nathan 11/28/22. WOOD HACKER will continue to follow as needed. LUIS EDUARDO Anderson
[2023-11-22 02:07] LABS: Lamotrigine Lamictal 1.7 ug/mL (2.0-20.0)
== END 2023-11-19 13:18 | disposition home or self-care (01) ==
PROVIDERS: Emergency Medicine; Emergency Provider Emergency Medicine; PCP Nurse Practitioner
DX: F31.9 Bipolar disorder, unspecified (principal); Z79.899 Other long term (current) drug therapy
CPT/HCPCS: 80053; 80175; 80178; 80305; 80320; 81003; 82962; 84443; 85025; 93005; 99283

== ENCOUNTER → 2023-12-05 12:01 | Outpatient (CLI) | payer MEDICARE, MEDICAID, SELFPAY ==
[2023-10-03 12:56] VITALS: BMI 23.8
[2023-12-05 13:44] LABS: Alanine Aminotransferase 32 IU/L (<35); Albumin 4.3 g/dL (3.5-5.0); Albumin Globulin Ratio 1.6 (1.0-2.8); Alkaline Phosphatase 67 U/L (38-126); Aspartate Aminotransferase 21 IU/L (14-36); BUN Creatinine Ratio 21.5 (6-22); Bilirubin Total 0.6 mg/dL (0.2-1.3); Blood Urea Nitrogen 14 mg/dL (7-17); Calcium 9.9 mg/dL (8.4-10.2); Carbon Dioxide 24 mmol/L (22-32); Chloride 100 mmol/L (98-107); Estimated Glomerular Filt Rate > 60 mL/min (>60); Globulin 2.7 g/dL (1.7-4.1); Glucose 260 mg/dL (70-100); HEMOLYSIS < 15 (0-50); Potassium 4.2 mmol/L (3.4-5.1); Sodium 134 mmol/L (137-145)
[2023-12-06 04:54] LABS: Lithium 0.3 mmol/L (0.6-1.2)
== END ==
PROVIDERS: PCP Nurse Practitioner; Referring Provider Psychiatry & Neurology Psychiatry; Visit Provider Psychiatry & Neurology Psychiatry
DX: F31.81 Bipolar II disorder (principal); F43.10 Post-traumatic stress disorder, unspecified; F10.21 Alcohol dependence, in remission; F90.2 Attention-deficit hyperactivity disorder, combined type; Z79.899 Other long term (current) drug therapy
CPT/HCPCS: 36415; 80053; 80178; 90837

== ENCOUNTER → 2023-12-19 11:59 | Outpatient (CLI) | payer MEDICARE, MEDICAID, SELFPAY ==
[2023-10-03 12:56] VITALS: BMI 23.8
[2023-12-19 13:55] LABS: Lithium 0.8 mmol/L (0.6-1.2)
== END ==
PROVIDERS: PCP Nurse Practitioner; Referring Provider Psychiatry & Neurology Psychiatry; Visit Provider Psychiatry & Neurology Psychiatry
DX: F31.81 Bipolar II disorder (principal); F41.1 Generalized anxiety disorder; F90.2 Attention-deficit hyperactivity disorder, combined type; F43.10 Post-traumatic stress disorder, unspecified; F42.2 Mixed obsessional thoughts and acts; Z79.899 Other long term (current) drug therapy
CPT/HCPCS: 36415; 80178; 99214

== ENCOUNTER → 2024-08-06 10:47 | Outpatient (CLI) | payer MEDICARE, MEDICAID, SELFPAY ==
[2024-04-02 14:15] VITALS: BMI 23.8
[2024-08-06 11:50] LABS: Add Manual Diff / Slide Review NO; Basophils Absolute Auto 100 /uL (0-100); Basophils Percent Auto 0.9 % (0-2); Eosinophils Absolute Auto 100 /uL (0-450); Hematocrit 46.7 % (36-46); Lymphocytes Absolute Auto 2000 /uL (1100-4500); Lymphocytes Percent Auto 32.3 % (25-40); Mean Corpuscular HGB Conc 34.2 % (30-36); Mean Corpuscular Hemoglobin 34.5 PG (26-34); Mean Corpuscular Volume 100.9 fL (80-100); Monocytes Absolute Auto 500 /uL (0-900); Monocytes Percent Auto 7.7 % (3-14); Neutrophils Absolute Auto 3500 /uL (1500-7000); Neutrophils Percent Auto 57.1 % (50-75); Platelet Count 495 X10^3/uL (150-400); Red Blood Cell Count 4.63 X10^6/uL (4.0-5.2); Red Cell Distribution Width 12.1 % (11.6-14.8); White Blood Cell Count 6.2 X10^3/uL (4.5-11.0)
[2024-08-06 12:43] LABS: Alanine Aminotransferase 30 IU/L (<35); Albumin 4.3 g/dL (3.5-5.0); Albumin Globulin Ratio 1.3 (1.0-2.8); Alkaline Phosphatase 78 U/L (38-126); Aspartate Aminotransferase 45 IU/L (14-36); BUN Creatinine Ratio 10.3 (6-22); Bilirubin Total 0.5 mg/dL (0.2-1.3); Blood Urea Nitrogen 6 mg/dL (7-17); Calcium 9.1 mg/dL (8.4-10.2); Carbon Dioxide 23 mmol/L (22-32); Chloride 101 mmol/L (98-107); Cholesterol 202 mg/dL (140-199); Estimated Glomerular Filt Rate > 60 mL/min (>60); Globulin 3.2 g/dL (1.7-4.1); Glucose 157 mg/dL (70-100); HDL Cholesterol 105 mg/dL (40-60); HEMOLYSIS < 15 (0-50); LDL Cholesterol Calculated 64 mg/dL (<100); Potassium 3.3 mmol/L (3.4-5.1); Sodium 136 mmol/L (137-145); Total Protein 7.5 g/dL (6.3-8.2); Triglycerides 166 mg/dL (35-150)
[2024-08-06 13:55] LABS: Lithium < 0.2 mmol/L (0.6-1.2)
[2024-08-08 15:36] LABS: Lamotrigine Lamictal <1.0 ug/mL (2.0-20.0)
== END ==
PROVIDERS: PCP Nurse Practitioner; Referring Provider Psychiatry & Neurology Psychiatry; Visit Provider Psychiatry & Neurology Psychiatry
DX: Z79.899 Other long term (current) drug therapy (principal); F31.81 Bipolar II disorder
CPT/HCPCS: 36415; 80053; 80061; 80175; 80178; 84443; 85025

== ENCOUNTER → 2024-10-01 15:56 | Outpatient (CLI) | payer MEDICARE, MEDICAID, SELFPAY ==
[2024-04-02 14:15] VITALS: BMI 23.8
[2024-10-01 16:51] LABS: Lithium 0.3 mmol/L (0.6-1.2)
== END ==
PROVIDERS: PCP Nurse Practitioner; Referring Provider Psychiatry & Neurology Psychiatry; Visit Provider Psychiatry & Neurology Psychiatry
DX: F31.81 Bipolar II disorder (principal); F43.10 Post-traumatic stress disorder, unspecified; F10.21 Alcohol dependence, in remission; F90.2 Attention-deficit hyperactivity disorder, combined type; Z79.899 Other long term (current) drug therapy
CPT/HCPCS: 36415; 80178; 90837

== ENCOUNTER 2024-10-27 14:56 | Emergency (ER) | payer MEDICARE, MEDICAID, SELFPAY ==
[2024-04-02 14:15] VITALS: BMI 23.8
[2024-10-27] VITALS (13 sets, daily range): BP systolic 106–131; BP diastolic 70–91; PULSE 95–150; RESP 16–22; TEMP 35.8; O2SAT 94–100
--- NOTE | 2024-10-27 15:57 | EKG_ITS ---
[facility] [id number] [place] [id number] Test Date: 2024-10-27 Pat Name: Mary Grace Simeon Department: Room: Gender: Female E D Tech: SHALINI : 1970 Requested By: Order Number: [id number] Reading MD: Kit Armstrong MD Measurements Intervals [place] Rate: 140 P: TX: 112 QRS: 55 QRSD: 80 T: 73 QT: 370 QTc: 564 Interpretive Statements Critical Test Result: High HR , Long QTc Sinus tachycardia Cannot rule out Anterior infarct , age undetermined Electronically Signed On 10-29-2024 11:17:05 PST by Kit Armstrong MD
[2024-10-27] MEDS: LORazepam 2 MG/ML INJ 0.5 MG IV (16:24)
[2024-10-27] MEDS: SODIUM CHLORIDE 0.9% 1,000 ML 1000 ML IV (16:24)
[2024-10-27 16:28] LABS: COVID-19 CEPHEID 4-PLEX PCR Negative (Negative); Influenza A - CEPHEID Flu A NEGATIVE (NEGATIVE); Influenza B - CEPHEID Flu B NEGATIVE (NEGATIVE); Respiratory Syncytial Virus Negative (Negative)
[2024-10-27 16:37] LABS: Add Manual Diff / Slide Review NO; Basophils Absolute Auto 100 /uL (0-100); Basophils Percent Auto 1.1 % (0-2); Eosinophils Absolute Auto 0 /uL (0-450); Eosinophils Percent Auto 0.2 % (2-4); Hemoglobin 15.1 g/dL (12.0-16.0); Lymphocytes Absolute Auto 1800 /uL (1100-4500); Lymphocytes Percent Auto 18.4 % (25-40); Mean Corpuscular HGB Conc 34.3 % (30-36); Mean Corpuscular Hemoglobin 35.5 PG (26-34); Mean Corpuscular Volume 103.6 fL (80-100); Monocytes Absolute Auto 800 /uL (0-900); Monocytes Percent Auto 7.6 % (3-14); Neutrophils Absolute Auto 7200 /uL (1500-7000); Neutrophils Percent Auto 72.7 % (50-75); Platelet Count 443 X10^3/uL (150-400); Red Blood Cell Count 4.25 X10^6/uL (4.0-5.2); Red Cell Distribution Width 12.4 % (11.6-14.8); White Blood Cell Count 9.9 X10^3/uL (4.5-11.0)
--- NOTE | 2024-10-27 16:38 | DI.CT.S_ITS ---
PROCEDURE: CT ABDOMEN PELVIS W CON INDICATIONS: vomting, diarrhea for 2 weeks. TECHNIQUE: After the administration of intravenous contrast, axial sections acquired from the lung bases to the pubic symphysis. Coronal and sagittal reformats were performed. For radiation dose reduction, the following was used: automated exposure control, adjustment of mA and/or kV according to patient size. COMPARISON: None. FINDINGS: Image quality: Diagnostic. Lower Chest: No significant findings. ABDOMEN: Liver: No solid mass. Small areas of geographic focal fatty infiltration. Gallbladder: Status post cholecystectomy. Biliary ducts: No biliary dilation. Pancreas: No ductal dilation. Spleen: Size is within normal limits. Adrenal Glands: No adrenal nodules. Kidneys and Ureters: No hydronephrosis. No solid mass. No complex renal cystic lesion which requires follow up. Nonobstructing 3 mm right renal calculus at the interpolar region. Stomach and Bowel: Normal appendix. Intermediate segments of bowel wall thickening in the colon may be related to underdistention versus colitis. Stomach is moderately distended with fluid. Prominent fluid-filled nondilated loops of small bowel are seen in the upper to central abdomen. Peritoneum: No abnormal intraperitoneal fluid. No free air. Ventral Wall: No significant ventral hernia. Abdominal Nodes: No retroperitoneal or mesenteric adenopathy by size criteria. Vessels: Aorta and inferior vena cava are normal in size. PELVIS: Pelvic Organs: Unremarkable. Bladder: No bladder wall thickening, accounting for underdistention. Pelvic Nodes: No enlarged lymph nodes. Miscellaneous: No inguinal hernias are seen. Bones: No aggressive osseous abnormality. IMPRESSION: 1. Constellation of findings are present that may indicate a nonspecific enterocolitis. No focal inflammatory changes or signs of bowel obstruction. 2. Non-obstructing 3 mm right renal calculus. No hydronephrosis. Approved by: Junior Hook M.D. on 10/27/2024 at 17:43
[2024-10-27 16:51] LABS: Alanine Aminotransferase 55 IU/L (<35); Albumin 4.3 g/dL (3.5-5.0); Albumin Globulin Ratio 1.2 (1.0-2.8); Alkaline Phosphatase 148 U/L (38-126); Aspartate Aminotransferase 119 IU/L (14-36); Bilirubin Total 0.7 mg/dL (0.2-1.3); Blood Urea Nitrogen 4 mg/dL (7-17); Calcium 9.2 mg/dL (8.4-10.2); Carbon Dioxide 17 mmol/L (22-32); Chloride 99 mmol/L (98-107); Estimated Glomerular Filt Rate > 60 mL/min (>60); Globulin 3.6 g/dL (1.7-4.1); Glucose 186 mg/dL (70-100); HEMOLYSIS < 15 (0-50); Lipase 83 U/L (23-300); Potassium 3.2 mmol/L (3.4-5.1); Sodium 135 mmol/L (137-145); Total Protein 7.9 g/dL (6.3-8.2)
--- NOTE | 2024-10-27 17:06 | ED_ITS ---
HPI - General Adult General Chief complaint: Upper Respiratory Symptoms Stated complaint: snt by clinic, mental health, flu symptoms Time Seen by Provider: 10/27/24 16:38 Source: patient, RN notes reviewed and old records reviewed Mode of arrival: Ambulatory Limitations: no limitations History of Present Illness HPI narrative: 54-year-old female with a history of generalized anxiety disorder, obsessive- compulsive disorder, bipolar 2, ADHD, PTSD and alcohol use disorder, dyslipidemia hypothyroidism who presents with complaint of nausea vomiting and some intermittent diarrhea for the past 1-2 weeks. Patient states no fevers. She denies chest pain or shortness of breath. States she has had trouble keeping down her medications. Patient states she has had occasional cramping in her abdomen. No dysuria, urgency or frequency. She has had some diarrhea but states that is stopped 4 days ago. No black or bloody stool she does note she has had some vaginal irritation because she has been off of her acyclovir. Patient states she was feeling quite acute or that her bipolar symptoms are bit more exacerbated she states no SI, no HI. She went to the psychiatric clinic who sent her here she has not been able to keep her medications down. She states she has had some alcohol the last couple days. States she does not feel like she was withdrawing currently. Related Data Home Medications Medication Instructions Recorded Confirmed acyclovir 400 mg tablet 400 mg PO BID ##0 01/21/18 04/08/24 levothyroxine 50 mcg tablet 50 mcg PO DAILY 90 days 04/23/18 04/08/24 omega-3 fatty acids 1,000 mg 1,000 mg PO DAILY 01/24/19 04/08/24 capsule (Fish Oil Concentrate) atorvastatin 10 mg tablet (Lipitor) 10 mg PO BEDTIME 07/02/19 04/08/24 cholecalciferol (vitamin D3) 50 8,000 unit PO DAILY 01/29/20 04/08/24 mcg (2,000 unit) capsule insulin lispro 100 unit/mL 0 - 100 unit SUBCUT DAILY 11/19/23 04/08/24 subcutaneous pen (Humalog KwikPen (U-100) Insulin) mirabegron 50 mg tablet,extended 50 mg PO DAILY 11/19/23 04/08/24 release 24 hr (Myrbetriq) omeprazole 40 mg capsule,delayed 40 mg PO BID 11/19/23 04/08/24 release Previous Rx's Medication Instructions Recorded duloxetine 60 mg capsule,delayed 60 mg PO BID #120 caps 12/04/23 release trazodone 150 mg tablet 75 - 150 mg (0.5 - 1 x 150 mg) PO 12/10/23 ONCE PM PRN insomnia #90 tabs prazosin 5 mg capsule 10 mg (2 x 5 mg) PO BEDTIME #180 03/03/24 caps methylphenidate HCl 36 mg 72 mg (2 x 36 mg) PO QAM #60 tabs 03/24/24 tablet,extended release 24 hr bupropion HCl 300 mg 24 hr tablet, 300 mg PO QDAY #90 tabs 04/04/24 extended release (Wellbutrin XL) lamotrigine 200 mg tablet 200 mg PO DAILY #30 tabs 06/18/24 lithium carbonate 300 mg capsule 300 mg PO BEDTIME #90 caps 09/01/24 quetiapine 100 mg tablet 300 mg (3 x 100 mg) PO BEDTIME #90 09/01/24 tabs alprazolam 0.5 mg tablet 1 mg (2 x 0.5 mg) PO BID PRN 09/30/24 anxiety #60 tabs zolpidem 10 mg tablet 10 mg PO BEDTIME PRN insomnia #30 09/30/24 tabs Allergies Allergy/AdvReac Type Severity Reaction Status Date / Time adhesive tape Allergy Unknown Verified 04/08/24 12:38 morphine AdvReac Unknown Pt states Verified 04/08/24 12:38 very sharp pain in pancreas area methylphenidate ER (Trigen AdvReac ?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 Review of Systems Review of Systems ROS Unobtainable: All systems reviewed & are unremarkable except as noted in HPI and below Patient History Medical History Tubal ligation evaluation Anxiety ADHD Recurrent pancreatitis Facet arthropathy, lumbar History of alcohol abuse Diabetes Surgical History History of laparoscopic cholecystectomy Family History Father Multiple myeloma Social History household members: significant other Smoking Status: Former smoker alcohol intake: never Smoking Status: Former smoker alcohol intake frequency: 0-2 drinks per day Substance Use Type: marijuana Exam Narrative Exam Narrative: GENERAL: Alert and oriented x three, female in moderate distress, patient appears anxious. HEENT: Head normocephalic, atraumatic, EOMI, pupils reactive, face symmetric, moist mucous membranes NECK: Supple, full range of motion CARDIOVASCULAR: Tachycardic but regular rate and rhythm without murmurs, rubs or gallops. RESPIRATORY: Breath sounds equal bilaterally, no wheezes rales or rhonchi. No tachypnea accessory muscle use. ABDOMEN: Soft, nontender. Nondistended. Normoactive bowel sounds all 4 quadrants. No guarding or rebound, rigidity, no mass : No CVA tenderness EXTREMITIES: Normal range of motion, no clubbing or edema. Neurovascularly intact NEUROLOGICAL: Cranial nerves II through XII grossly intact. Moving all extremities SKIN: Warm, dry, no petechiae, no rashes or lesions. PSYCH: Patient has slightly pressured speech, she expresses anxiety, no SI, no HI, no reports of hallucinations. Initial Vital Signs Initial Vital Signs: Vital Signs Temperature 96.4 F L 10/27/24 15:32 Pulse Rate 150 H 10/27/24 15:32 Respiratory Rate 18 10/27/24 15:32 Blood Pressure 129/77 10/27/24 15:32 Pulse Oximetry 94 10/27/24 15:32 Oxygen Delivery Method Room Air 10/27/24 15:32 Course Orders Ordered: Discontinued Medications Diazepam (Diazepam 5 Mg Tablet) 5 mg PO NOW ONE Stop: 10/27/24 17:06 Last Admin: 10/27/24 17:10 Dose: 5 mg Documented By: OBED Haloperidol (Haloperidol 5 Mg/Ml Vial) 3 mg IV NOW ONE Stop: 10/27/24 21:05 Last Admin: 10/27/24 21:12 Dose: 3 mg Documented By: TIANA Sodium Chloride (Normal Saline 0.9%) 1,000 mls @ 1,000 mls/hr IV BOLUS ONE Stop: 10/27/24 16:50 Last Infusion: 10/27/24 18:25 Dose: Infused Documented By: Admin: 10/27/24 16:24 Dose: 1,000 mls/hr Documented By: OBED Lorazepam (Lorazepam 2 Mg/Ml Inj) 0.5 mg IV NOW ONE Stop: 10/27/24 15:52 Last Admin: 10/27/24 16:24 Dose: 0.5 mg Documented By: OBED Pantoprazole Sodium (Pantoprazole 40 Mg Vial) 40 mg IV NOW ONE Stop: 10/27/24 18:12 Last Admin: 10/27/24 18:24 Dose: 40 mg Documented By: TIANA Phenobarbital (Phenobarbital 65 Mg/Ml Vial) 130 mg IV NOW ONE Stop: 10/27/24 18:25 Last Admin: 10/27/24 18:36 Dose: 130 mg Documented By: TIANA Potassium Chloride (Potassium Chloride 20 Meq Tab) 40 meq PO NOW ONE Stop: 10/27/24 17:49 Last Admin: 10/27/24 20:51 Dose: Not Given Documented By: TIANA Vital Signs Vital signs: Vital Signs - 8 hr 10/27/24 15:32 10/27/24 16:01 10/27/24 16:01 Temperature 96.4 F L Pulse Rate 150 H Respiratory Rate 18 Blood Pressure 129/77 131/91 H Pulse Oximetry 94 97 Oxygen Delivery Method Room Air 10/27/24 16:30 10/27/24 16:30 10/27/24 17:00 Temperature Pulse Rate 111 H Respiratory Rate Blood Pressure 109/72 Pulse Oximetry 100 98 Oxygen Delivery Method 10/27/24 17:30 Temperature Pulse Rate 119 H Respiratory Rate Blood Pressure Pulse Oximetry 99 Oxygen Delivery Method Medical Decision Making Lab Data 10/27/24 16:11 10/27/24 16:11 Labs: Lab Results 10/27/24 10/27/24 10/27/24 Range/Units 15:05 15:45 16:11 WBC 9.9 (4.5-11.0) X10^3/uL RBC 4.25 (4.0-5.2) X10^6/uL Hgb 15.1 (12.0-16.0) g/dL Hct 44.0 (36-46) % MCV 103.6 H (80-100) fL MCH 35.5 H (26-34) PG MCHC 34.3 (30-36) % RDW 12.4 (11.6-14.8) % Plt Count 443 H (150-400) X10^3/uL Neut % (Auto) 72.7 (50-75) % Lymph % (Auto) 18.4 L (25-40) % [place] % (Auto) 7.6 (3-14) % Eos % (Auto) 0.2 L (2-4) % Baso % (Auto) 1.1 (0-2) % Neut # (Auto) 7200 H (0821-5697) /uL Lymph # (Auto) 1800 (4651-3601) /uL [place] # (Auto) 800 (0-900) /uL Eos # (Auto) 0 (0-450) /uL Baso # (Auto) 100 (0-100) /uL Sodium 135 L (137-145) mmol/L Potassium 3.2 L (3.4-5.1) mmol/L Chloride 99 (98-107) mmol/L Carbon Dioxide 17 L (22-32) mmol/L BUN 4 L (7-17) mg/dL Creatinine 0.67 (0.52-1.04) mg/dL Estimated GFR > 60 (>60) mL/min BUN/Creatinine Ratio 6.0 (6-22) Glucose 186 H (70-100) mg/dL Calcium 9.2 (8.4-10.2) mg/dL Magnesium (1.6-2.3) mg/dL Total Bilirubin 0.7 (0.2-1.3) mg/dL AST 119 H (14-36) IU/L ALT 55 H (<35) IU/L Alkaline Phosphatase 148 H (38-126) U/L Total Protein 7.9 (6.3-8.2) g/dL Albumin 4.3 (3.5-5.0) g/dL Globulin 3.6 (1.7-4.1) g/dL Albumin/Globulin Ratio 1.2 (1.0-2.8) Lipase 83 (23-300) U/L U Opiates 300ng/mL cut Negative (Negative) Ur Oxycodone Screen Negative (Negative) Urine Methadone Screen Negative (Negative) Ur Barbiturates Screen Negative (Negative) U Tricyclic Antidepress Negative (Negative) Ur Phencyclidine Scrn Negative (Negative) Ur Amphetamines Screen Negative (Negative) U Methamphetamines Scrn Negative (Negative) Ur MDMA Scrn (Ecstasy) Negative (Negative) U Benzodiazepines Scrn Negative (Negative) Urine Cocaine Screen Negative (Negative) U Marijuana (THC) Screen Positive H (Negative) Urine pH Normal (Normal) Urine Specific [place] Normal (Normal) Ethyl Alcohol 175 H ( - 10) mg/dL Ur Creatinine Normal (Normal) SARS-CoV-2 (PCR) Negative (Negative) Influenza A (RT-PCR) Flu a negative (NEGATIVE) Influenza B (RT-PCR) Flu b negative (NEGATIVE) RSV (PCR) Negative (Negative) 10/27/24 Range/Units 20:56 WBC (4.5-11.0) X10^3/uL RBC (4.0-5.2) X10^6/uL Hgb (12.0-16.0) g/dL Hct (36-46) % MCV (80-100) fL MCH (26-34) PG MCHC (30-36) % RDW (11.6-14.8) % Plt Count (150-400) X10^3/uL Neut % (Auto) (50-75) % Lymph % (Auto) (25-40) % [place] % (Auto) (3-14) % Eos % (Auto) (2-4) % Baso % (Auto) (0-2) % Neut # (Auto) (9528-0655) /uL Lymph # (Auto) (3278-4534) /uL [place] # (Auto) (0-900) /uL Eos # (Auto) (0-450) /uL Baso # (Auto) (0-100) /uL Sodium (137-145) mmol/L Potassium (3.4-5.1) mmol/L Chloride (98-107) mmol/L Carbon Dioxide (22-32) mmol/L BUN (7-17) mg/dL Creatinine (0.52-1.04) mg/dL Estimated GFR (>60) mL/min BUN/Creatinine Ratio (6-22) Glucose (70-100) mg/dL Calcium (8.4-10.2) mg/dL Magnesium 1.7 (1.6-2.3) mg/dL Total Bilirubin (0.2-1.3) mg/dL AST (14-36) IU/L ALT (<35) IU/L Alkaline Phosphatase (38-126) U/L Total Protein (6.3-8.2) g/dL Albumin (3.5-5.0) g/dL Globulin (1.7-4.1) g/dL Albumin/Globulin Ratio (1.0-2.8) Lipase (23-300) U/L U Opiates 300ng/mL cut (Negative) Ur Oxycodone Screen (Negative) Urine Methadone Screen (Negative) Ur Barbiturates Screen (Negative) U Tricyclic Antidepress (Negative) Ur Phencyclidine Scrn (Negative) Ur Amphetamines Screen (Negative) U Methamphetamines Scrn (Negative) Ur MDMA Scrn (Ecstasy) (Negative) U Benzodiazepines Scrn (Negative) Urine Cocaine Screen (Negative) U Marijuana (THC) Screen (Negative) Urine pH (Normal) Urine Specific [place] (Normal) Ethyl Alcohol ( - 10) mg/dL Ur Creatinine (Normal) SARS-CoV-2 (PCR) (Negative) Influenza A (RT-PCR) (NEGATIVE) Influenza B (RT-PCR) (NEGATIVE) RSV (PCR) (Negative) Urine Dip Bedside Urine Glucose Negative Bedside Urine Bilirubin - Negative Bedside Urine Ketone ++ 40 Urine Specific [place] 1.000 Bedside Urine Occult Blood - Negative Bedside Urine pH 7.5 Bedside Urine Protein - Negative Bedside Urine Urobilinogen - Negative Bedside Urine Nitrite - Negative Bedside Urine Leukocytes - Negative Esterase Point of care testing: Urine Dip Bedside Urine Glucose Negative Bedside Urine Bilirubin - Negative Bedside Urine Ketone ++ 40 Urine Specific [place] 1.000 Bedside Urine Occult Blood - Negative Bedside Urine pH 7.5 Bedside Urine Protein - Negative Bedside Urine Urobilinogen - Negative Bedside Urine Nitrite - Negative Bedside Urine Leukocytes - Negative Esterase Imaging Data CT scan - abdomen/pelvis: Radiologist's Impression: [place] [address] CT Scan Report Signed Patient: Mary Grace Simeon MR#: [id number] : 1970 Acct:[id number] Age/Sex: 54 / F Date of Service: 10/27/24 Loc: ED Accession Number: [id number] Procedure: CT abdomen pelvis w con Ordering Provider: Ange John D.O. PROCEDURE: CT ABDOMEN PELVIS W CON INDICATIONS: vomting, diarrhea for 2 weeks. TECHNIQUE: After the administration of intravenous contrast, axial sections acquired from the lung bases to the pubic symphysis. Coronal and sagittal reformats were performed. For radiation dose reduction, the following was used: automated exposure control, adjustment of mA and/or kV according to patient size. COMPARISON: None. FINDINGS: Image quality: Diagnostic. Lower Chest: No significant findings. ABDOMEN: Liver: No solid mass. Small areas of geographic focal fatty infiltration. Gallbladder: Status post cholecystectomy. Biliary ducts: No biliary dilation. Pancreas: No ductal dilation. Spleen: Size is within normal limits. Adrenal Glands: No adrenal nodules. Kidneys and Ureters: No hydronephrosis. No solid mass. No complex renal cystic lesion which requires follow up. Nonobstructing 3 mm right renal calculus at the interpolar region. Stomach and Bowel: Normal appendix. Intermediate segments of bowel wall thickening in the colon may be related to underdistention versus colitis. Stomach is moderately distended with fluid. Prominent fluid-filled nondilated loops of small bowel are seen in the upper to central abdomen. Peritoneum: No abnormal intraperitoneal fluid. No free air. Ventral Wall: No significant ventral hernia. Abdominal Nodes: No retroperitoneal or mesenteric adenopathy by size criteria. Vessels: Aorta and inferior vena cava are normal in size. PELVIS: Pelvic Organs: Unremarkable. Bladder: No bladder wall thickening, accounting for underdistention. Pelvic Nodes: No enlarged lymph nodes. Miscellaneous: No inguinal hernias are seen. Bones: No aggressive osseous abnormality. IMPRESSION: 1. Constellation of findings are present that may indicate a nonspecific enterocolitis. No focal inflammatory changes or signs of bowel obstruction. 2. Non-obstructing 3 mm right renal calculus. No hydronephrosis. Approved by: Junior Hook M.D. on 10/27/2024 at 17:43 ECG Data Attestation: I personally reviewed and interpreted this ECG as follows: Prior ECG tracings: available for review Interpretation: Sinus tachycardia, rate of 140 GA 112 QRS 80 QTC is 464. No acute ST elevation. Nonspecific change . Patient has prior that showed normal sinus rhythm. MDM Narrative Medical decision making narrative: 54-year-old female with complaint of nausea vomiting intermittent diarrhea with a past 1-2 weeks. Last episode of diarrhea was 4 days ago. Patient is tachycardic, states she has had difficulty keeping down her regular medications. States she has been drinking recently has a history of chronic alcohol use but states has been sober for some time. She notes that her bipolar symptoms are little bit worse recently she has had difficulty make taking her medications but no SI, no HI does not appear to be gravely disabled. Labs show normal white count, normal hemoglobin platelets of 443, patient's macrocytic. Labs show sodium 135 potassium 3.2 chloride 99 CO2 of 17 BUN 4 creatinine of 0.67 glucose of 186, bilirubin 0.7 with a AST of 119 ALT of 55 alk-phos of 148, lipase is 83. ETOH is 175. Urine positive for ketones, negative for nitrates or leukocyte esterase. UDS positive for marijuana. CT abdomen pelvis shows constellation of findings presents may indicate nonspecific enterocolitis no acute inflammatory changes or signs of bowel obstruction nonobstructing 3 mm right renal calculus no hydronephrosis. Patient received lorazepam 0.5 mg has a little bit of improvement, received 1 L of normal saline and tachycardia has been slowly improving. Also to had a dose of oral diazepam and had her potassium replaced orally. Patient was also given a dose of Protonix. On recheck tachycardia almost completely resolved heart rates 101, patient is tolerating water. No persistent vomiting. There maybe a component of withdrawal after some further discussion we will give a dose of phenobarbital. Patient does not wish for any inpatient treatment or alcohol treatment. If she continues to tolerate orals we will likely discharge home. Discharge Plan Departure Patient Disposition: Home Clinical Impression: Nausea & vomiting, Alcohol intoxication, Hypokalemia Instructions: DI for Vomiting -- Adult Activity Restrictions/Additional Instructions: Please follow up for recheck. Your potassium slightly low today. Please return for new or worsening symptoms, persistent vomiting, lightheadedness or passing out, fevers, new chest pain or shortness breath, new swelling of extremities, black or bloody stools, if you have any thoughts of harming yourself or others or other new or concerning changes. Prescriptions: No Action levothyroxine 50 mcg tablet 50 mcg PO DAILY 90 Days trazodone 150 mg tablet 75 - 150 mg PO ONCE PM PRN (Reason: insomnia) Qty: 90 3RF duloxetine 60 mg capsule,delayed release(DR/EC) 60 mg PO BID Qty: 120 3RF quetiapine 100 mg tablet 300 mg PO BEDTIME Qty: 90 1RF lithium carbonate 300 mg capsule 300 mg PO BEDTIME Qty: 90 1RF Rx Instructions: take with food cholecalciferol (vitamin D3) 50 mcg (2,000 unit) capsule 8,000 unit PO DAILY Patient Comments: dose updated per Citlalli HUIZAR acyclovir 400 mg Tablet 400 mg PO BID Qty: 0 prazosin 5 mg capsule 10 mg PO BEDTIME Qty: 180 1RF Rx Instructions: Take 2 caps by mouth at bedtime. methylphenidate HCl 36 mg tablet extended release 24hr 72 mg PO QAM Qty: 60 0RF bupropion HCl [Wellbutrin XL] 300 mg tablet extended release 24 hr 300 mg PO QDAY Qty: 90 1RF lamotrigine 200 mg tablet 200 mg PO DAILY Qty: 30 2RF alprazolam 0.5 mg tablet 1 mg PO BID PRN (Reason: anxiety) Qty: 60 0RF zolpidem 10 mg tablet 10 mg PO BEDTIME PRN (Reason: insomnia) Qty: 30 0RF omega-3 fatty acids [Fish Oil Concentrate] 1,000 mg capsule 1,000 mg PO DAILY insulin lispro [Humalog KwikPen Insulin] 100 unit/mL insulin pen 0 - 100 unit SUBCUT DAILY omeprazole 40 mg capsule,delayed release(DR/EC) 40 mg PO BID Myrbetriq 50 mg tablet extended release 24 hr 50 mg PO DAILY atorvastatin [Lipitor] 10 mg tablet 10 mg PO BEDTIME Referrals: Felicita Jeffrey ARNP [Primary Care Provider] - Stand Alone Forms: Patient Portal/API/Survey
[2024-10-27] MEDS: diazePAM 5 MG TABLET PO (17:10)
[2024-10-27 17:25] LABS: Ethanol (ETOH) 175 mg/dL
[2024-10-27 18:22] LABS: Ur Creatinine Normal (Normal); Ur Specific Gravity Normal (Normal); Urine Amphetamines Negative (Negative); Urine Barbiturates Negative (Negative); Urine Benzodiazepines Negative (Negative); Urine Cocaine Negative (Negative); Urine MDMA Negative (Negative); Urine Methadone Negative (Negative); Urine Methamphetamines Negative (Negative); Urine Opiates Negative (Negative); Urine Oxycodone Negative (Negative); Urine Phencyclidine Negative (Negative); Urine THC Positive (Negative); Urine Tricyclic Antidepressant Negative (Negative); Urine pH Normal (Normal)
[2024-10-27] MEDS: PANTOPRAZOLE 40 MG VIAL IV (18:24)
[2024-10-27] MEDS: PHENobarbital 65 MG/ML VIAL 130 MG IV (18:36)
--- NOTE | 2024-10-27 20:08 | PC.NURSE ---
patient vomiting and dry heaving, still reports nausea, unable to keep down po
--- NOTE | 2024-10-27 21:01 | EKG_ITS ---
[address] [address] Test Date: 2024-10-27 Pat Name: Mary Grace Simeon Department: Room: Gender: Female [employer] T[employer]: zaid : 1970 Requested By: Order Number: [id number] Reading MD: Kit Armstrong MD Measurements Intervals [place] Rate: 108 P: 70 NC: 158 QRS: 66 QRSD: 88 T: 62 QT: 358 QTc: 479 Interpretive Statements Sinus tachycardia Cannot rule out Anterior infarct , age undetermined Electronically Signed On 10-29-2024 11:17:07 PST by Kit Armstrong MD
[2024-10-27] MEDS: HALOPERIDOL 5 MG/ML VIAL 3 MG IV (21:12)
[2024-10-27 21:21] LABS: Magnesium 1.7 mg/dL (1.6-2.3)
--- NOTE | 2024-10-27 22:28 | PC.NURSE ---
pt tolerated po challenge states she is ready to go home
== END 2024-10-27 22:41 | disposition home or self-care (01) ==
PROVIDERS: Emergency Medicine; Emergency Provider Emergency Medicine; PCP Nurse Practitioner
DX: R19.7 Diarrhea, unspecified (principal); R10.9 Unspecified abdominal pain; F10.129 Alcohol abuse with intoxication, unspecified; F12.90 Cannabis use, unspecified, uncomplicated; Y90.6 Blood alcohol level of 120-199 mg/100 ml; N20.0 Calculus of kidney; E87.6 Hypokalemia; R00.0 Tachycardia, unspecified
CPT/HCPCS: 0241U; 36415; 74177; 80053; 80305; 80320; 81003; 83690; 83735; 85025; 93005; 93010; 96361; 96374; 96375; 99284; J1630; J2060; J2470; J2560; Q9967

== ENCOUNTER 2024-12-21 04:25 | Emergency (ER) | payer MEDICARE, MEDICAID, SELFPAY ==
[2024-04-02 14:15] VITALS: BMI 23.8
[2024-12-21] VITALS (12 sets, daily range): BP systolic 98–128; BP diastolic 56–79; PULSE 101–135; RESP 18–20; TEMP 36.1; O2SAT 95–99; BMI 21.2
--- NOTE | 2024-12-21 04:54 | DI.CT.S_ITS ---
PROCEDURE: CT TRAUMA CHEST ABDOMEN PELVIS INDICATIONS: Trauma TECHNIQUE: MDCT axial chest images were obtained with IV contrast in the arterial phase. Maximum intensity projections and multiplanar reformats were obtained. MDCT axial abdomen and pelvis images were obtained with IV contrast in the portal venous phase. Multiplanar reformats were obtained. Optional delayed phase scanning may also be obtained Advanced techniques were used to lower patient radiation exposure. COMPARISON:[facility], CT, CT ABDOMEN PELVIS W CON, 10/27/2024, 16:47. FINDINGS Image Quality: Diagnostic. Thyroid: Within normal limits. Cardiac: Heart size within normal limits. No pericardial effusion. Aorta: Thoracic aortic diameter within normal limits. Pulmonary Artery: Main pulmonary artery diameter within normal limits. Lungs: No focal lung consolidation. Pleura: No pneumothorax or pleural effusion. Airways: The trachea and mainstem bronchi are patent. Lymph Nodes: No mediastinal, hilar, or axillary lymphadenopathy. Esophagus: Mild diffuse mural thickening of the mid and distal thoracic esophagus. Peritoneum: No pneumoperitoneum or ascites. Bones: No acute osseous abnormality. Liver: Normal in size and contour. Diffuse hypoattenuation. Gallbladder: Surgically absent. Biliary tree: No intrahepatic or extrahepatic biliary ductal dilatation. Pancreas: Within normal limits. Spleen: Normal in size and contour. Kidneys: Nonobstructive right mid calyceal 3 mm calculus (18/66). Minimal right hydroureteronephrosis without a mechanical obstruction (similar to 10/27/2024). No left hydronephrosis. Adrenals: No adrenal nodularity. Bladder: Normal in size and wall thickness. : No acute abnormality. Stomach: Normal in size and contour. Bowel: Normal in diameter without any bowel obstruction. Appendix within normal limits no (18/96). Lymph Nodes: No retroperitoneal, mesenteric, or inguinal lymphadenopathy. Vascular: No abdominal aortic aneurysm. The visualized arterial vasculature is patent. Soft Tissues: No acute abnormality. IMPRESSION: 1. No acute traumatic CT abnormality of the chest/abdomen/pelvis. 2. Nonobstructive right mid calyceal 3 mm nephrolithiasis. 3. Hepatic steatosis. 4. Diffuse mural thickening of the mid-distal esophagus, which can be seen with esophagitis. Dictated by: Rudy Randall M.D. on 12/21/2024 at 7:54 Approved by: Rudy Randall M.D. on 12/21/2024 at 8:02
--- NOTE | 2024-12-21 04:55 | DI.CT.S_ITS ---
PROCEDURE: CT CERVICAL SPINE WO CON INDICATIONS: Trauma TECHNIQUE: Noncontrast 3 mm thick sections acquired from the skull base to the T4 level. Sagittal and coronal reformats were then constructed. For radiation dose reduction, the following was used: automated exposure control, adjustment of mA and/or kV according to patient size. COMPARISON: None. FINDINGS: Image quality: Excellent. Bones: No fractures or dislocations. Visualized superior ribs are intact. Soft tissues: Prevertebral soft tissues are normal in thickness. No paravertebral hematomas. No apical pneumothoraces. IMPRESSION: No acute CT abnormality of the cervical spine. Dictated by: Rudy Randall M.D. on 12/21/2024 at 7:51 Approved by: Rudy Randall M.D. on 12/21/2024 at 7:54
--- NOTE | 2024-12-21 04:55 | DI.CT.S_ITS ---
PROCEDURE: CT HEAD/BRAIN WO CON INDICATIONS: Trauma TECHNIQUE: Noncontrast 4.5 mm thick angled axial sections acquired from the foramen magnum to the vertex, with coronal and sagittal reformats. For radiation dose reduction, the following was used: automated exposure control, adjustment of mA and/or kV according to patient size. COMPARISON: None. FINDINGS: Image quality: Fair; suboptimal positioning limits evaluation. CSF spaces: Basal cisterns are patent. No extra-axial fluid collections. Ventricles are normal in size and shape. Brain: No midline shift. No intracranial masses or hemorrhage. Moore-white matter interface is normal. Skull and face: Calvarium and visualized facial bones are intact, without suspicious lesions. Sinuses: Mucosal thickening in the right ethmoid air cells and right sphenoid sinus (5/14). Visualized sinuses and mastoids are clear. IMPRESSION: No acute intracranial abnormality. Dictated by: Rudy Randall M.D. on 12/21/2024 at 7:46 Approved by: Rudy Randall M.D. on 12/21/2024 at 7:48
--- NOTE | 2024-12-21 04:59 | ED_ITS ---
HPI - Fall <Abdifatah Leavitt MD - Last Filed: 12/21/24 16:03> General Chief Complaint: Fall Stated Complaint: fall Time Seen by Provider: 12/21/24 04:54 Source: patient and EMS Mode of arrival: EMS History of Present Illness HPI Narrative: 54-year-old female admits to ongoing alcohol use, frequent falling, fell earlier today, struck her face, unclear if she lost consciousness. She has not aware that she had any seizure activity. No incontinence to urine or stool. She has a laceration to her left face. She admits to regularly picking at her skin, particular at her bilateral upper extremities. She has abdominal pain after the fall, left gluteal and low back pain. Denies numbness or weakness. Related Data Home Medications Medication Instructions Recorded Confirmed acyclovir 400 mg tablet 400 mg PO BID ##0 01/21/18 04/08/24 levothyroxine 50 mcg tablet 50 mcg PO DAILY 90 days 04/23/18 04/08/24 omega-3 fatty acids 1,000 mg 1,000 mg PO DAILY 01/24/19 04/08/24 capsule (Fish Oil Concentrate) atorvastatin 10 mg tablet (Lipitor) 10 mg PO BEDTIME 07/02/19 04/08/24 cholecalciferol (vitamin D3) 50 8,000 unit PO DAILY 01/29/20 04/08/24 mcg (2,000 unit) capsule insulin lispro 100 unit/mL 0 - 100 unit SUBCUT DAILY 11/19/23 04/08/24 subcutaneous pen (Humalog KwikPen (U-100) Insulin) mirabegron 50 mg tablet,extended 50 mg PO DAILY 11/19/23 04/08/24 release 24 hr (Myrbetriq) omeprazole 40 mg capsule,delayed 40 mg PO BID 11/19/23 04/08/24 release Previous Rx's Medication Instructions Recorded trazodone 150 mg tablet 75 - 150 mg (0.5 - 1 x 150 mg) PO 12/10/23 ONCE PM PRN insomnia #90 tabs lamotrigine 200 mg tablet 200 mg PO DAILY #30 tabs 06/18/24 alprazolam 0.5 mg tablet 1 mg (2 x 0.5 mg) PO BID PRN 11/27/24 anxiety #60 tabs bupropion HCl 150 mg 24 hr tablet, 150 mg PO QAM #30 tabs 11/27/24 extended release duloxetine 60 mg capsule,delayed 60 mg PO BID #120 caps 11/27/24 release lithium carbonate 300 mg capsule 300 mg PO BEDTIME #90 caps 11/27/24 methylphenidate HCl 36 mg 36 mg PO QAM #30 tabs 11/27/24 tablet,extended release 24 hr quetiapine 400 mg tablet 400 mg PO BEDTIME #90 tabs 11/27/24 zolpidem 10 mg tablet 10 mg PO BEDTIME PRN insomnia #30 11/27/24 tabs prazosin 5 mg capsule 5 mg PO BEDTIME #90 caps 11/28/24 Allergies Allergy/AdvReac Type Severity Reaction Status Date / Time adhesive tape Allergy Unknown Verified 04/08/24 12:38 morphine AdvReac Unknown Pt states Verified 04/08/24 12:38 very sharp pain in pancreas area methylphenidate ER (Trigen 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 Patient History <Abdifatah Leavitt MD - Last Filed: 12/21/24 16:03> Medical History Tubal ligation evaluation Anxiety ADHD Recurrent pancreatitis Facet arthropathy, lumbar History of alcohol abuse Diabetes Surgical History History of laparoscopic cholecystectomy Family History Father Multiple myeloma Social History household members: significant other Smoking Status: Former smoker alcohol intake: never Smoking Status: Former smoker alcohol intake frequency: 0-2 drinks per day Alcohol type: hard liquor Exam <Abdifatah Leavitt MD - Last Filed: 12/21/24 16:03> Narrative Exam Narrative: GENERAL: Well-developed patient, in mild distress. Alcohol on breath, some slurred speech, directable HEAD: Atraumatic. Normocephalic. Left zygomatic horizontal small laceration 7 mm length. EYES: Pupils equal round and reactive. Extraocular motions intact. No scleral icterus. No injection or drainage. ENT: Nose without active bleeding but some swelling mid nasal bridge. Throat without erythema, tonsillar hypertrophy or exudate. Airway patent. NECK: Trachea midline. Non tender CARDIOVASCULAR: Regular rate and rhythm without murmurs, gallops, or rubs. RESPIRATORY: Clear to auscultation. Breath sounds equal bilaterally. No wheezes, rales, or rhonchi. GASTROINTESTINAL: Abdomen soft, non-tender, nondistended. Left lower quadrant horizontal 10 x 6 cm orange colored bruise, appears old, no associated fluctuance or crepitance. EXTREMITIES: No edema or joint tenderness. Left gluteal area contusion. BACK: Nontender without deformity or crepitance. No flank tenderness. NEURO: AOx3. Motor functions grossly nonfocal SKIN: No rash or erythema of visible areas. Numerous areas of small skin picking scabs mostly bilateral upper extremities, without obvious gross cellulitis at this time Initial Vital Signs Initial Vital Signs: Vital Signs Pulse Rate 125 H 12/21/24 04:32 Pulse Oximetry 95 12/21/24 04:32 <Ange Gamino MD - Last Filed: 12/21/24 08:57> Initial Vital Signs Initial Vital Signs: Vital Signs Pulse Rate 125 H 12/21/24 04:32 Pulse Oximetry 95 12/21/24 04:32 Course <Abdifatah Leavitt MD - Last Filed: 12/21/24 16:03> Orders Ordered: ED Orders 12/21/24 07:10 Consult to [employer] - [employer] Business Banking Officer Stat Discontinued Medications Acetaminophen (Acetaminophen 325 Mg Tablet) 975 mg PO NOW ONE Stop: 12/21/24 08:15 Last Admin: 12/21/24 08:25 Dose: Not Given Documented By: SPF Diphtheria/Tetanus/Acell Pertussis (Tet,Diph,Pertuss(Acell),Vac/Pf 0.5 Ml Syringe) 0.5 ml IM .ONCE ONE Stop: 12/21/24 04:55 Last Admin: 12/21/24 05:08 Dose: 0.5 ml Documented By: KH Sodium Chloride (Normal Saline 0.9%) 1,000 mls @ 1,000 mls/hr IV BOLUS ONE Stop: 12/21/24 05:55 Last Infusion: 12/21/24 07:01 Dose: Infused Documented By: Admin: 12/21/24 05:15 Dose: 1,000 mls/hr Documented By: KH Sodium Chloride (Normal Saline 0.9%) 1,000 mls @ 1,000 mls/hr IV BOLUS ONE Stop: 12/21/24 06:38 Last Infusion: 12/21/24 08:21 Dose: Infused Documented By: Admin: 12/21/24 07:01 Dose: 1,000 mls/hr Documented By: KARINA POTASSIUM CHLORIDE IN WATER (Potassium Cl 10 Meq/100 Ml Lilliana) 10 meq in 100 mls @ 100 mls/hr IV Q1H ARIADNA Stop: 12/21/24 07:59 Last Infusion: 12/21/24 08:11 Dose: Infused Documented By: Admin: 12/21/24 06:59 Dose: 100 mls/hr Documented By: Infusion: 12/21/24 06:59 Dose: Infused Documented By: Admin: 12/21/24 06:09 Dose: 100 mls/hr Documented By: KARINA Ibuprofen (Ibuprofen 400 Mg Tablet) 400 mg PO NOW ONE Stop: 12/21/24 08:25 Last Admin: 12/21/24 08:27 Dose: 400 mg Documented By: MAY Vital Signs Vital signs: Vital Signs - 8 hr 12/21/24 08:00 12/21/24 08:00 12/21/24 08:30 Pulse Rate 110 H Respiratory Rate Blood Pressure 99/57 L 102/70 Pulse Oximetry 99 Oxygen Delivery Method 12/21/24 08:30 12/21/24 09:42 Pulse Rate 111 H 109 H Respiratory Rate 18 Blood Pressure 102/79 Pulse Oximetry 99 97 Oxygen Delivery Method Room Air Room Air <Ange Gamino MD - Last Filed: 12/21/24 08:57> Orders Ordered: ED Orders 12/21/24 07:10 Consult to [employer] - [employer] Business Banking Officer Stat Discontinued Medications Acetaminophen (Acetaminophen 325 Mg Tablet) 975 mg PO NOW ONE Stop: 12/21/24 08:15 Last Admin: 12/21/24 08:25 Dose: Not Given Documented By: [facility] Diphtheria/Tetanus/Acell Pertussis (Tet,Diph,Pertuss(Acell),Vac/Pf 0.5 Ml Syringe) 0.5 ml IM .ONCE ONE Stop: 12/21/24 04:55 Last Admin: 12/21/24 05:08 Dose: 0.5 ml Documented By: KARINA Sodium Chloride (Normal Saline 0.9%) 1,000 mls @ 1,000 mls/hr IV BOLUS ONE Stop: 12/21/24 05:55 Last Infusion: 12/21/24 07:01 Dose: Infused Documented By: Admin: 12/21/24 05:15 Dose: 1,000 mls/hr Documented By: KARINA Sodium Chloride (Normal Saline 0.9%) 1,000 mls @ 1,000 mls/hr IV BOLUS ONE Stop: 12/21/24 06:38 Last Infusion: 12/21/24 08:21 Dose: Infused Documented By: Admin: 12/21/24 07:01 Dose: 1,000 mls/hr Documented By: KARINA POTASSIUM CHLORIDE IN WATER (Potassium Cl 10 Meq/100 Ml Lilliana) 10 meq in 100 mls @ 100 mls/hr IV Q1H ARIADNA Stop: 12/21/24 07:59 Last Infusion: 12/21/24 08:11 Dose: Infused Documented By: Admin: 12/21/24 06:59 Dose: 100 mls/hr Documented By: Infusion: 12/21/24 06:59 Dose: Infused Documented By: Admin: 12/21/24 06:09 Dose: 100 mls/hr Documented By: KARINA Ibuprofen (Ibuprofen 400 Mg Tablet) 400 mg PO NOW ONE Stop: 12/21/24 08:25 Last Admin: 12/21/24 08:27 Dose: 400 mg Documented By: MAY Vital Signs Vital signs: Vital Signs - 8 hr 12/21/24 08:00 12/21/24 08:00 12/21/24 08:30 Pulse Rate 110 H Respiratory Rate Blood Pressure 99/57 L 102/70 Pulse Oximetry 99 Oxygen Delivery Method 12/21/24 08:30 12/21/24 09:42 Pulse Rate 111 H 109 H Respiratory Rate 18 Blood Pressure 102/79 Pulse Oximetry 99 97 Oxygen Delivery Method Room Air Room Air MDM - Fall <Abdifatah Leavitt MD - Last Filed: 12/21/24 16:03> Lab Data Attestation: I reviewed the patient's lab results. Lab results narrative: White blood cell count 7500, hemoglobin 13.6, platelets adequate. Sodium 132 with glucose 312. Potassium 3.0 low. BUN creatinine normal. Ethanol level 272. Lactate 5.1. Liver functions show mild transaminitis AST greater than ALT, normal T bili. Lipase normal. 12/21/24 05:10 12/21/24 05:10 Labs: Lab Results 12/21/24 12/21/24 Range/Units 05:10 08:27 WBC 7.5 (4.5-11.0) X10^3/uL RBC 3.94 L (4.0-5.2) X10^6/uL Hgb 13.6 (12.0-16.0) g/dL Hct 40.2 (36-46) % MCV 102.0 H (80-100) fL MCH 34.5 H (26-34) PG MCHC 33.8 (30-36) % RDW 12.7 (11.6-14.8) % Plt Count 221 (150-400) X10^3/uL Neut % (Auto) 75.7 H (50-75) % Lymph % (Auto) 12.9 L (25-40) % Cross % (Auto) 10.8 (3-14) % Eos % (Auto) 0.0 L (2-4) % Baso % (Auto) 0.6 (0-2) % Neut # (Auto) 5700 (1790-5077) /uL Lymph # (Auto) 1000 L (9288-5848) /uL Cross # (Auto) 800 (0-900) /uL Eos # (Auto) 0 (0-450) /uL Baso # (Auto) 0 (0-100) /uL PT 11.0 (9.4-12.5) SECONDS INR 1.0 (0.9-1.3) APTT 29 (25.1-36.5) SECONDS Sodium 132 L (137-145) mmol/L Potassium 3.0 L (3.4-5.1) mmol/L Chloride 92 L (98-107) mmol/L Carbon Dioxide 22 (22-32) mmol/L BUN 11 (7-17) mg/dL Creatinine 0.78 (0.52-1.04) mg/dL Estimated GFR > 60 (>60) mL/min BUN/Creatinine Ratio 14.1 (6-22) Glucose 312 H (70-100) mg/dL Lactate 5.1 H* 3.6 H (0.7-2.1) mmol/L Calcium 8.6 (8.4-10.2) mg/dL Total Bilirubin 0.7 (0.2-1.3) mg/dL AST 123 H (14-36) IU/L ALT 67 H (<35) IU/L Alkaline Phosphatase 84 (38-126) U/L Total Protein 6.8 (6.3-8.2) g/dL Albumin 4.0 (3.5-5.0) g/dL Globulin 2.8 (1.7-4.1) g/dL Albumin/Globulin Ratio 1.4 (1.0-2.8) Lipase 79 (23-300) U/L Ethyl Alcohol 272 H ( - 10) mg/dL Blood Type A Negative Antibody Screen Negative ECG Data Attestation: I personally reviewed and interpreted this ECG as follows: Interpretation: Sinus tachycardia with rate of 108, no obvious ST segment elevation or depression changes. ND 166, QRS 86, QTC 466. MDM Narrative Medical decision making narrative: 54-year-old female with alcohol use ongoing, frequent falls, recent falls, new fall last night in context of alcohol use, unclear if there was any loss of consciousness, small facial laceration subcentimer, possible nasal contusion/fracture by examination, old appearing truncal bruises, skin picking like lesions bilateral upper extremities. Patient frequently tearful, redirectable generally. CT head, face, cervical spine, chest, abdomen, pelvis imaging requested. Labs pending. Ethanol level 272 noted. IV fluids given. Lactate elevated 5.1 noted, we will repeat lactate level after fluids given. Glucose 300s. Potassium 3.0 low, IV repletion for now, could consider oral repletion if CT does not show surgical indication to keep patient NPO. 0700, CT study reports still pending. Signed out to oncoming ED shift physician Dr. Gamino. Dr. Gamino -care of patient is signed out to me by nighttime physician. Independent review of patient and chart performed by myself. Patient is awake, alert, ambulatory without assistance. CT imaging positive for nasal bone fracture, no other acute findings. Patient informed of all findings. She says that she lost her parents recently and this has caused her to not keep up with her house. She states that The clutter around her house was a reason why she fell last night. Patient counseled on appropriate alcohol intake. Recommended PCP follow up. Patient to call her partner for ride home. <Ange Gamino MD - Last Filed: 12/21/24 08:57> Lab Data Labs: Lab Results 12/21/24 12/21/24 Range/Units 05:10 08:27 WBC 7.5 (4.5-11.0) X10^3/uL RBC 3.94 L (4.0-5.2) X10^6/uL Hgb 13.6 (12.0-16.0) g/dL Hct 40.2 (36-46) % MCV 102.0 H (80-100) fL MCH 34.5 H (26-34) PG MCHC 33.8 (30-36) % RDW 12.7 (11.6-14.8) % Plt Count 221 (150-400) X10^3/uL Neut % (Auto) 75.7 H (50-75) % Lymph % (Auto) 12.9 L (25-40) % Cross % (Auto) 10.8 (3-14) % Eos % (Auto) 0.0 L (2-4) % Baso % (Auto) 0.6 (0-2) % Neut # (Auto) 5700 (3507-8453) /uL Lymph # (Auto) 1000 L (1614-5876) /uL Cross # (Auto) 800 (0-900) /uL Eos # (Auto) 0 (0-450) /uL Baso # (Auto) 0 (0-100) /uL PT 11.0 (9.4-12.5) SECONDS INR 1.0 (0.9-1.3) APTT 29 (25.1-36.5) SECONDS Sodium 132 L (137-145) mmol/L Potassium 3.0 L (3.4-5.1) mmol/L Chloride 92 L (98-107) mmol/L Carbon Dioxide 22 (22-32) mmol/L BUN 11 (7-17) mg/dL Creatinine 0.78 (0.52-1.04) mg/dL Estimated GFR > 60 (>60) mL/min BUN/Creatinine Ratio 14.1 (6-22) Glucose 312 H (70-100) mg/dL Lactate 5.1 H* 3.6 H (0.7-2.1) mmol/L Calcium 8.6 (8.4-10.2) mg/dL Total Bilirubin 0.7 (0.2-1.3) mg/dL AST 123 H (14-36) IU/L ALT 67 H (<35) IU/L Alkaline Phosphatase 84 (38-126) U/L Total Protein 6.8 (6.3-8.2) g/dL Albumin 4.0 (3.5-5.0) g/dL Globulin 2.8 (1.7-4.1) g/dL Albumin/Globulin Ratio 1.4 (1.0-2.8) Lipase 79 (23-300) U/L Ethyl Alcohol 272 H ( - 10) mg/dL Blood Type A Negative Antibody Screen Negative MDM Narrative Medical decision making narrative: 54-year-old female with alcohol use ongoing, frequent falls, recent falls, new fall last night in context of alcohol use, unclear if there was any loss of consciousness, small facial abrasion, possible nasal contusion/fracture by examination, old appearing truncal bruises, skin picking like lesions bilateral upper extremities. Patient frequently tearful, redirectable generally. CT head, cervical spine, chest, abdomen, pelvis imaging requested. Labs pending. Ethanol level 272 noted. IV fluids given. Lactate elevated 5.1 noted, we will repeat lactate level after fluids given. Glucose 300s. Potassium 3.0 low, IV repletion for now, could consider oral repletion if CT does not show surgical indication to keep patient NPO. 0700, CT study reports still pending. Signed out to oncoming ED shift physician Dr. Gamino. Dr. Gamino -care of patient is signed out to me by nighttime physician. Independent review of patient and chart performed by myself. Patient is awake, alert, ambulatory without assistance. CT imaging positive for nasal bone fracture, no other acute findings. Patient informed of all findings. She says that she lost her parents recently and this has caused her to not keep up with her house. She states that The clutter around her house was a reason why she fell last night. Patient counseled on appropriate alcohol intake. Recommended PCP follow up. Patient to call her partner for ride home. Discharge Plan Departure Patient Disposition: Home Clinical Impression: Fracture of nasal bone, Alcohol intoxication, Arthropathy of lumbar facet joint Clinical Impression: (Ruled Out): Dermatitis ab igne Instructions: DI for Nose Fracture, DI for Alcohol Use Disorder Activity Restrictions/Additional Instructions: Your imaging today showed that you have a nose fracture. Avoid blowing your nose or touching your nose to prevent irritation. If you are having dental pain eat soft foods. Avoid alcohol as this can cause worsening falls. Follow up with your primary care doctor. Your sugar was mildly elevated today, make sure that you take all of your previously prescribed medications as instructed. Prescriptions: No Action levothyroxine 50 mcg tablet 50 mcg PO DAILY 90 Days trazodone 150 mg tablet 75 - 150 mg PO ONCE PM PRN (Reason: insomnia) Qty: 90 3RF alprazolam 0.5 mg tablet 1 mg PO BID PRN (Reason: anxiety) Qty: 60 0RF bupropion HCl 150 mg tablet extended release 24 hr 150 mg PO QAM Qty: 30 0RF duloxetine 60 mg capsule,delayed release(DR/EC) 60 mg PO BID Qty: 120 3RF lithium carbonate 300 mg capsule 300 mg PO BEDTIME Qty: 90 3RF Rx Instructions: take with food quetiapine 400 mg tablet 400 mg PO BEDTIME Qty: 90 3RF zolpidem 10 mg tablet 10 mg PO BEDTIME PRN (Reason: insomnia) Qty: 30 0RF methylphenidate HCl 36 mg tablet extended release 24hr 36 mg PO QAM Qty: 30 0RF cholecalciferol (vitamin D3) 50 mcg (2,000 unit) capsule 8,000 unit PO DAILY Patient Comments: dose updated per Citlalli HUIZAR acyclovir 400 mg Tablet 400 mg PO BID Qty: 0 lamotrigine 200 mg tablet 200 mg PO DAILY Qty: 30 2RF prazosin 5 mg capsule 5 mg PO BEDTIME Qty: 90 3RF omega-3 fatty acids [Fish Oil Concentrate] 1,000 mg capsule 1,000 mg PO DAILY insulin lispro [Humalog KwikPen Insulin] 100 unit/mL insulin pen 0 - 100 unit SUBCUT DAILY omeprazole 40 mg capsule,delayed release(DR/EC) 40 mg PO BID Myrbetriq 50 mg tablet extended release 24 hr 50 mg PO DAILY atorvastatin [Lipitor] 10 mg tablet 10 mg PO BEDTIME Referrals: Felicita Jeffrey ARNP [Primary Care Provider] - Stand Alone Forms: Patient Portal/API/Survey
--- NOTE | 2024-12-21 05:07 | EKG_ITS ---
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
[2024-12-21] MEDS: TET,DIPH,PERTUSS(ACELL),VAC/PF 0.5 ML SYRINGE IM (05:08)
[2024-12-21] MEDS: SODIUM CHLORIDE 0.9% 1,000 ML 1000 ML IV ×2 (05:15→07:01)
[2024-12-21 05:21] LABS: Add Manual Diff / Slide Review NO; Basophils Absolute Auto 0 /uL (0-100); Basophils Percent Auto 0.6 % (0-2); Eosinophils Absolute Auto 0 /uL (0-450); Hematocrit 40.2 % (36-46); Hemoglobin 13.6 g/dL (12.0-16.0); Lymphocytes Absolute Auto 1000 /uL (1100-4500); Lymphocytes Percent Auto 12.9 % (25-40); Mean Corpuscular HGB Conc 33.8 % (30-36); Mean Corpuscular Hemoglobin 34.5 PG (26-34); Monocytes Absolute Auto 800 /uL (0-900); Monocytes Percent Auto 10.8 % (3-14); Neutrophils Absolute Auto 5700 /uL (1500-7000); Neutrophils Percent Auto 75.7 % (50-75); Platelet Count 221 X10^3/uL (150-400); Red Blood Cell Count 3.94 X10^6/uL (4.0-5.2); Red Cell Distribution Width 12.7 % (11.6-14.8); White Blood Cell Count 7.5 X10^3/uL (4.5-11.0)
[2024-12-21 05:34] LABS: PTT Partial Thromboplastin Tim 29 SECONDS (25.1-36.5)
[2024-12-21 05:35] LABS: Lactate (Lactic Acid) 5.1 mmol/L (0.7-2.1)
[2024-12-21 05:37] LABS: Alanine Aminotransferase 67 IU/L (<35); Albumin Globulin Ratio 1.4 (1.0-2.8); Alkaline Phosphatase 84 U/L (38-126); Aspartate Aminotransferase 123 IU/L (14-36); BUN Creatinine Ratio 14.1 (6-22); Bilirubin Total 0.7 mg/dL (0.2-1.3); Blood Urea Nitrogen 11 mg/dL (7-17); Calcium 8.6 mg/dL (8.4-10.2); Carbon Dioxide 22 mmol/L (22-32); Chloride 92 mmol/L (98-107); Estimated Glomerular Filt Rate > 60 mL/min (>60); Ethanol (ETOH) 272 mg/dL; Globulin 2.8 g/dL (1.7-4.1); Glucose 312 mg/dL (70-100); HEMOLYSIS < 15 (0-50); Lipase 79 U/L (23-300); Sodium 132 mmol/L (137-145); Total Protein 6.8 g/dL (6.3-8.2)
--- NOTE | 2024-12-21 05:42 | DI.CT.S_ITS ---
PROCEDURE: CT FACIAL BONES WO CON INDICATIONS: trauma, etoh, left face and nasal bridge TECHNIQUE: Noncontrast 2.5 mm thick axial images acquired from the mandible through the frontal sinuses, with coronal and sagittal reformatting. For radiation dose reduction, the following was used: automated exposure control, adjustment of mA and/or kV according to patient size. COMPARISON: None. FINDINGS: Image quality: Excellent. Bones and teeth: Orbital landon are intact. Sinus landon show no fracture or deformity. Acute, comminuted left nasal bone fractures () with adjacent soft tissue hematoma. Visualized portions of the mandible demonstrate no fractures or subluxation. Zygomatic arches are intact. Pterygoid plates are intact. Visualized portions of the skull base and auditory canals are intact. Sinuses: Paranasal sinuses are aerated, without fluid levels, mucosal thickening, or mucoceles. Mastoid air cells are aerated. Soft tissues: No edema, masses, or fluid collections. No enlarged lymph nodes. No soft tissue lacerations or debris. Vascular: Visualized vascular structures appear normal in the absence of contrast. Bony vascular foramina and canals are intact. IMPRESSION: Acute, comminuted left nasal bone fractures without other acute facial bone abnormality. Dictated by: Rudy Randall M.D. on 12/21/2024 at 7:49 Approved by: Rudy Randall M.D. on 12/21/2024 at 7:51
[2024-12-21] MEDS: POTASSIUM CHLORIDE IN WATER 10 MEQ/100 ML PIGGYBACK 100 MEQ IV ×2 (06:09→06:59)
[2024-12-21 06:53] LABS: Reflexed Lactate in 2 Hours Y
[2024-12-21] MEDS: IBUPROFEN 400 MG TABLET PO (08:27)
[2024-12-21 08:49] LABS: Lactate 2HR (Lactic Acid Rflx) 3.6 mmol/L (0.7-2.1)
--- NOTE | 2024-12-21 09:43 | PC.NURSE ---
Washed pt's left shoulder wound with soapy water, dried off, and applied xereform gauz with nonadherant gauz. Educated pt on wound care daily. Pt standing at bedside to change into her clothes awaiting the taxi for a ride home.
== END 2024-12-21 09:52 | disposition home or self-care (01) ==
PROVIDERS: Emergency Provider Emergency Medicine; PCP Nurse Practitioner
DX: S02.2XXA Fracture of nasal bones, initial encounter for closed fracture (principal); F10.129 Alcohol abuse with intoxication, unspecified; Y90.8 Blood alcohol level of 240 mg/100 ml or more; R29.6 Repeated falls; S01.81XA Laceration without foreign body of other part of head, initial encounter; R10.9 Unspecified abdominal pain; M54.50 Low back pain, unspecified; W01.198A Fall on same level from slipping, tripping and stumbling with subsequent striking against other object, initial encounter; E11.9 Type 2 diabetes mellitus without complications; Z79.4 Long term (current) use of insulin; M47.816 Spondylosis without myelopathy or radiculopathy, lumbar region; R00.0 Tachycardia, unspecified; Z23 Encounter for immunization
CPT/HCPCS: 36415; 70450; 70486; 71275; 72125; 74177; 80053; 80320; 83605; 83690; 85025; 85610; 85730; 86850; 86900; 86901; 90471; 93005; 96361; 96365; 96366; 99284; 90715; Q9967

== ENCOUNTER 2025-01-05 00:34 | Emergency (ER) | payer MEDICARE, MEDICAID, SELFPAY ==
[2024-04-02 14:15] VITALS: BMI 23.8
[2025-01-05] VITALS (11 sets, daily range): BP systolic 102–128; BP diastolic 63–73; PULSE 71–110; RESP 12–24; TEMP 36.1; O2SAT 97–100; BMI 21.6
--- NOTE | 2025-01-05 00:58 | ED.ALCOHOL ---
HPI - Alcohol <Lin Day, DO - Last Filed: 01/06/25 03:35> General Chief Complaint: Fall Stated Complaint: alcohol and mental health Time Seen by Provider: 01/05/25 00:36 Mode of arrival: other History of Present Illness HPI narrative: Patient is a 54-year-old female who has a known alcoholic frequent falls presents today for inability to sleep. She admits to drinking alcohol today during the [place]. She was having maybe some coccyx pain. She was seen evaluated here 12/21/2024 after she fell and struck her face. Today it is unclear exactly why she was here. She denies any suicidal ideations. But she does report only sleeping about 8 hours on 3 days. She was brought in by police because she needed a ride in his clearly intoxicated at this time. She does have some healing wounds for when she was here couple weeks ago. She also suffers from pretty significant PTSD and has regular nightmares. She says that she just wants to sleep. Does not appear to be any evidence of new trauma or falls. Related Data Home Medications Medication Instructions Recorded Confirmed acyclovir 400 mg tablet 400 mg PO BID ##0 01/21/18 04/08/24 levothyroxine 50 mcg tablet 50 mcg PO DAILY 90 days 04/23/18 04/08/24 omega-3 fatty acids 1,000 mg 1,000 mg PO DAILY 01/24/19 04/08/24 capsule (Fish Oil Concentrate) atorvastatin 10 mg tablet (Lipitor) 10 mg PO BEDTIME 07/02/19 04/08/24 cholecalciferol (vitamin D3) 50 8,000 unit PO DAILY 01/29/20 04/08/24 mcg (2,000 unit) capsule insulin lispro 100 unit/mL 0 - 100 unit SUBCUT DAILY 11/19/23 04/08/24 subcutaneous pen (Humalog KwikPen (U-100) Insulin) mirabegron 50 mg tablet,extended 50 mg PO DAILY 11/19/23 04/08/24 release 24 hr (Myrbetriq) omeprazole 40 mg capsule,delayed 40 mg PO BID 11/19/23 04/08/24 release Previous Rx's Medication Instructions Recorded trazodone 150 mg tablet 75 - 150 mg (0.5 - 1 x 150 mg) PO 12/10/23 ONCE PM PRN insomnia #90 tabs lamotrigine 200 mg tablet 200 mg PO DAILY #30 tabs 06/18/24 duloxetine 60 mg capsule,delayed 60 mg PO BID #120 caps 11/27/24 release lithium carbonate 300 mg capsule 300 mg PO BEDTIME #90 caps 11/27/24 quetiapine 400 mg tablet 400 mg PO BEDTIME #90 tabs 11/27/24 prazosin 5 mg capsule 5 mg PO BEDTIME #90 caps 11/28/24 alprazolam 0.5 mg tablet 1 mg (2 x 0.5 mg) PO BID PRN 12/29/24 anxiety #60 tabs bupropion HCl 150 mg 24 hr tablet, 150 mg PO QAM #30 tabs 12/29/24 extended release methylphenidate HCl 36 mg 36 mg PO QAM #30 tabs 12/29/24 tablet,extended release 24 hr zolpidem 10 mg tablet 10 mg PO BEDTIME PRN insomnia #30 12/29/24 tabs Allergies Allergy/AdvReac Type Severity Reaction Status Date / Time adhesive tape Allergy Unknown Verified 04/08/24 12:38 morphine AdvReac Unknown Pt states Verified 04/08/24 12:38 very sharp pain in pancreas area Patient History <Lin Day DO - Last Filed: 01/06/25 03:35> Medical History Tubal ligation evaluation Anxiety ADHD Recurrent pancreatitis Facet arthropathy, lumbar History of alcohol abuse Diabetes Surgical History History of laparoscopic cholecystectomy Family History Father Multiple myeloma Social History household members: significant other Smoking Status: Current every day smoker alcohol intake: never Smoking Status: Current every day smoker tobacco type: vaping alcohol intake frequency: 0-2 drinks per day Alcohol type: hard liquor Exam <Lin Day DO - Last Filed: 01/06/25 03:35> Initial Vital Signs Initial Vital Signs: Vital Signs Temperature 96.9 F L 01/05/25 00:43 Pulse Rate 110 H 01/05/25 00:43 Respiratory Rate 16 01/05/25 00:43 Blood Pressure 107/73 01/05/25 00:43 Pulse Oximetry 98 01/05/25 00:43 Oxygen Delivery Method Room Air 01/05/25 00:43 GENERAL: Intoxicated alert 54-year-old female and in no acute distress. HEENT: Head atraumatic,EOMI, pupils reactive, face symmetric, moist mucous membranes CARDIOVASCULAR: Regular rate and rhythm without murmurs, rubs or gallops. RESPIRATORY: Breath sounds equal bilaterally, no wheezes rales or rhonchi. ABDOMEN: Soft, nontender. Normoactive bowel sounds all 4 quadrants. No guarding or rebound. BACK: No vertebral tenderness no step-offs no sign of trauma EXTREMITIES: Normal range of motion, no clubbing or edema. Neurovascularly intact NEUROLOGICAL: Moving all extremities slurred speech A&O x4 SKIN: Healing wound on right forearm scabbed over also her nose is healing there is no new laceration <Abdifatah Leavitt MD - Last Filed: 01/05/25 21:21> Initial Vital Signs Initial Vital Signs: Vital Signs Temperature 96.9 F L 01/05/25 00:43 Pulse Rate 110 H 01/05/25 00:43 Respiratory Rate 16 01/05/25 00:43 Blood Pressure 107/73 01/05/25 00:43 Pulse Oximetry 98 01/05/25 00:43 Oxygen Delivery Method Room Air 01/05/25 00:43 Course <Lin Day DO - Last Filed: 01/06/25 03:35> Orders Ordered: Discontinued Medications POTASSIUM CHLORIDE IN WATER (Potassium Cl 10 Meq/100 Ml Lilliana) 10 meq in 100 mls @ 100 mls/hr IV Q1H ARIADNA Stop: 01/05/25 05:59 Last Infusion: 01/05/25 06:32 Dose: Infused Documented By: Admin: 01/05/25 05:44 Dose: 100 mls/hr Documented By: Infusion: 01/05/25 05:30 Dose: Infused Documented By: Admin: 01/05/25 04:17 Dose: 100 mls/hr Documented By: Infusion: 01/05/25 04:15 Dose: Infused Documented By: Admin: 01/05/25 03:05 Dose: 100 mls/hr Documented By: Infusion: 01/05/25 03:04 Dose: Infused Documented By: Admin: 01/05/25 02:08 Dose: 100 mls/hr Documented By: Sodium Chloride (Normal Saline 0.9%) 1,000 mls @ 100 mls/hr IV CONT ARIADNA Last Infusion: 01/05/25 06:31 Dose: Infused Documented By: Admin: 01/05/25 02:35 Dose: 100 mls/hr Documented By: Lorazepam (Lorazepam 2 Mg/Ml Inj) 1 mg IV NOW ONE Stop: 01/05/25 02:55 Last Admin: 01/05/25 03:03 Dose: 1 mg Documented By: Vital Signs Vital signs: Vital Signs - 8 hr 01/05/25 00:43 01/05/25 04:00 01/05/25 05:47 Temperature 96.9 F L Pulse Rate 110 H 79 71 Respiratory Rate 16 16 14 Blood Pressure 107/73 102/63 Pulse Oximetry 98 100 Oxygen Delivery Method Room Air Room Air 01/05/25 05:48 01/05/25 05:48 01/05/25 05:49 Temperature Pulse Rate 75 75 Respiratory Rate 15 12 Blood Pressure 107/67 107/67 Pulse Oximetry 100 Oxygen Delivery Method Room Air 01/05/25 06:00 01/05/25 06:30 Temperature Pulse Rate 75 74 Respiratory Rate 18 14 Blood Pressure Pulse Oximetry 99 99 Oxygen Delivery Method Room Air <Abdifatah Leavitt MD - Last Filed: 01/05/25 21:21> Orders Ordered: Discontinued Medications POTASSIUM CHLORIDE IN WATER (Potassium Cl 10 Meq/100 Ml L[place]) 10 meq in 100 mls @ 100 mls/hr IV Q1H ARIADNA Stop: 01/05/25 05:59 Last Infusion: 01/05/25 06:32 Dose: Infused Documented By: Admin: 01/05/25 05:44 Dose: 100 mls/hr Documented By: Infusion: 01/05/25 05:30 Dose: Infused Documented By: Admin: 01/05/25 04:17 Dose: 100 mls/hr Documented By: Infusion: 01/05/25 04:15 Dose: Infused Documented By: Admin: 01/05/25 03:05 Dose: 100 mls/hr Documented By: Infusion: 01/05/25 03:04 Dose: Infused Documented By: Admin: 01/05/25 02:08 Dose: 100 mls/hr Documented By: MR Sodium Chloride (Normal Saline 0.9%) 1,000 mls @ 100 mls/hr IV CONT ARIADNA Last Infusion: 01/05/25 06:31 Dose: Infused Documented By: Admin: 01/05/25 02:35 Dose: 100 mls/hr Documented By: MR Lorazepam (Lorazepam 2 Mg/Ml Inj) 1 mg IV NOW ONE Stop: 01/05/25 02:55 Last Admin: 01/05/25 03:03 Dose: 1 mg Documented By: MR Vital Signs Vital signs: Vital Signs - 8 hr 01/05/25 00:43 01/05/25 04:00 01/05/25 05:47 Temperature 96.9 F L Pulse Rate 110 H 79 71 Respiratory Rate 16 16 14 Blood Pressure 107/73 102/63 Pulse Oximetry 98 100 Oxygen Delivery Method Room Air Room Air 01/05/25 05:48 01/05/25 05:48 01/05/25 05:49 Temperature Pulse Rate 75 75 Respiratory Rate 15 12 Blood Pressure 107/67 107/67 Pulse Oximetry 100 Oxygen Delivery Method Room Air 01/05/25 06:00 01/05/25 06:30 Temperature Pulse Rate 75 74 Respiratory Rate 18 14 Blood Pressure Pulse Oximetry 99 99 Oxygen Delivery Method Room Air MDM - Alcohol <Lin Day, - Last Filed: 01/06/25 03:35> Lab Data 01/05/25 01:35 01/05/25 07:30 Labs: Lab Results 01/05/25 01/05/25 01/05/25 Range/Units 01:35 03:42 03:42 WBC 7.0 (4.5-11.0) X10^3/uL RBC 3.95 L (4.0-5.2) X10^6/uL Hgb 13.6 (12.0-16.0) g/dL Hct 40.3 (36-46) % MCV 102.0 H (80-100) fL MCH 34.3 H (26-34) PG MCHC 33.7 (30-36) % RDW 13.3 (11.6-14.8) % Plt Count 354 (150-400) X10^3/uL Neut % (Auto) 51.8 (50-75) % Lymph % (Auto) 37.9 (25-40) % [place] % (Auto) 9.0 (3-14) % Eos % (Auto) 0.8 L (2-4) % Baso % (Auto) 0.5 (0-2) % Neut # (Auto) 3600 (6395-0029) /uL Lymph # (Auto) 2600 (8819-6581) /uL [place] # (Auto) 600 (0-900) /uL Eos # (Auto) 100 (0-450) /uL Baso # (Auto) 0 (0-100) /uL Sodium 137 (137-145) mmol/L Potassium 2.7 L* (3.4-5.1) mmol/L Chloride 99 (98-107) mmol/L Carbon Dioxide 29 (22-32) mmol/L BUN 6 L (7-17) mg/dL Creatinine 0.71 (0.52-1.04) mg/dL Estimated GFR > 60 (>60) mL/min BUN/Creatinine Ratio 8.5 (6-22) Glucose 157 H (70-100) mg/dL Calcium 8.9 (8.4-10.2) mg/dL Total Bilirubin 0.6 (0.2-1.3) mg/dL AST 146 H (14-36) IU/L ALT 72 H (<35) IU/L Alkaline Phosphatase 114 (38-126) U/L Total Protein 7.0 (6.3-8.2) g/dL Albumin 4.0 (3.5-5.0) g/dL Globulin 3.0 (1.7-4.1) g/dL Albumin/Globulin Ratio 1.3 (1.0-2.8) TSH 0.90 (0.47-4.68) uIU/mL Urine Color Yellow Urine Appearance Clear Urine pH 6.0 Normal (4.5-8.0) Ur Specific [place] <=1.005 (1.000-1.035) Urine Protein Negative (Negative) Urine Glucose (UA) Negative (Negative) g/dL Urine Ketones Negative (NEGATIVE) Urine Occult Blood Trace-intact (Negative) Urine Nitrate Negative (Negative) Urine Bilirubin Negative (NEGATIVE) Urine Urobilinogen 0.2 (0.2) E.U./dL Ur Leukocyte Esterase 1+ H (NEGATIVE) Urine RBC 0-1/hpf (0-5/HPF) Urine WBC 1-5/hpf (0-5/HPF) Ur Squamous Epith Cells 0-1 /hpf (0-5/HPF) Urine Bacteria Many (>30) H (None) Ur Culture Indicated? Specimen cultured Vol Urine Centrifuged 10ml (spun) Salicylates < 1.0 (<20) mg/dL U Opiates 300ng/mL cut Negative (Negative) Ur Oxycodone Screen Negative (Negative) Urine Methadone Screen Negative (Negative) Acetaminophen < 10 (10-30) ug/mL Ur Barbiturates Screen Negative (Negative) U Tricyclic Antidepress Negative (Negative) Ur Phencyclidine Scrn Negative (Negative) Ur Amphetamines Screen Negative (Negative) U Methamphetamines Scrn Negative (Negative) Ur MDMA Scrn (Ecstasy) Negative (Negative) U Benzodiazepines Scrn Positive H (Negative) Urine Cocaine Screen Negative (Negative) U Marijuana (THC) Screen Positive H (Negative) Urine Specific [place] Normal (Normal) Ethyl Alcohol 203 H ( - 10) mg/dL Ur Creatinine Normal (Normal) 01/05/25 Range/Units 07:30 WBC (4.5-11.0) X10^3/uL RBC (4.0-5.2) X10^6/uL Hgb (12.0-16.0) g/dL Hct (36-46) % MCV (80-100) fL MCH (26-34) PG MCHC (30-36) % RDW (11.6-14.8) % Plt Count (150-400) X10^3/uL Neut % (Auto) (50-75) % Lymph % (Auto) (25-40) % [place] % (Auto) (3-14) % Eos % (Auto) (2-4) % Baso % (Auto) (0-2) % Neut # (Auto) (5765-0775) /uL Lymph # (Auto) (8696-1346) /uL [place] # (Auto) (0-900) /uL Eos # (Auto) (0-450) /uL Baso # (Auto) (0-100) /uL Sodium (137-145) mmol/L Potassium 3.9 D (3.4-5.1) mmol/L Chloride (98-107) mmol/L Carbon Dioxide (22-32) mmol/L BUN (7-17) mg/dL Creatinine (0.52-1.04) mg/dL Estimated GFR (>60) mL/min BUN/Creatinine Ratio (6-22) Glucose (70-100) mg/dL Calcium (8.4-10.2) mg/dL Total Bilirubin (0.2-1.3) mg/dL AST (14-36) IU/L ALT (<35) IU/L Alkaline Phosphatase (38-126) U/L Total Protein (6.3-8.2) g/dL Albumin (3.5-5.0) g/dL Globulin (1.7-4.1) g/dL Albumin/Globulin Ratio (1.0-2.8) TSH (0.47-4.68) uIU/mL Urine Color Urine Appearance Urine pH (4.5-8.0) Ur Specific [place] (1.000-1.035) Urine Protein (Negative) Urine Glucose (UA) (Negative) g/dL Urine Ketones (NEGATIVE) Urine Occult Blood (Negative) Urine Nitrate (Negative) Urine Bilirubin (NEGATIVE) Urine Urobilinogen (0.2) E.U./dL Ur Leukocyte Esterase (NEGATIVE) Urine RBC (0-5/HPF) Urine WBC (0-5/HPF) Ur Squamous Epith Cells (0-5/HPF) Urine Bacteria (None) Ur Culture Indicated? Vol Urine Centrifuged Salicylates (<20) mg/dL U Opiates 300ng/mL cut (Negative) Ur Oxycodone Screen (Negative) Urine Methadone Screen (Negative) Acetaminophen (10-30) ug/mL Ur Barbiturates Screen (Negative) U Tricyclic Antidepress (Negative) Ur Phencyclidine Scrn (Negative) Ur Amphetamines Screen (Negative) U Methamphetamines Scrn (Negative) Ur MDMA Scrn (Ecstasy) (Negative) U Benzodiazepines Scrn (Negative) Urine Cocaine Screen (Negative) U Marijuana (THC) Screen (Negative) Urine Specific [place] (Normal) Ethyl Alcohol ( - 10) mg/dL Ur Creatinine (Normal) ECG Data Attestation: I personally reviewed and interpreted this ECG as follows: Prior ECG tracings: available for review Interpretation: Sinus rhythm rate 97 NM interval 164 QRS [address] changes similar to previous EKGs MDM Narrative Medical decision making narrative: MDM CC: Alcohol intoxication Complicating co-morbidities: Alcohol abuse Medical records reviewed: Previous ED visits for alcohol intoxication Differential considered: Polysubstance abuse Exam documented above, pertinent findings include: Intoxicated 54-year-old female no evidence of trauma or acute injury signs of healing wound Lab Test results independently reviewed as above. Pertinent findings: Potassium 2.7 Alcohol 203 Drug screen positive for marijuana benzodiazepine No leukocytosis or anemia No ASYA or other electrolyte abnormality Liver enzymes mildly elevated AST 146 ALT 72 bilirubin 0.6 overall stable Urinalysis does have leukocytes and bacteria Independently reviewed EKG as above Consultations: [ ] Treatments: Ativan, K rider 40 mEq Re-evaluations: Patient was quite irritable anxious she did receive a dose of Ativan which did seem to help. Discussion: Patient is a 54-year-old female presenting here today for known reason. Reports that she can not sleep has pretty severe PTSD. She does have history of alcohol abuse alcohol level today is 203. She was not elevation liver enzymes but a normal bilirubin. She was given Ativan to help calm her and let her sleep. Abdomen is soft breath sounds are clear vitals are stable. No evidence of UTI. She was afebrile. She has not endorsing any suicidal or homicidal ideations. She was found to be hypokalemic with a potassium of 2.7. She was given a K rider. Unclear what patient's goal for coming to the emergency department is today may require detox versus discharge home <Abdifatah Leavitt MD - Last Filed: 01/05/25 21:21> Lab Data Labs: Lab Results 01/05/25 01/05/25 01/05/25 Range/Units 01:35 03:42 03:42 WBC 7.0 (4.5-11.0) X10^3/uL RBC 3.95 L (4.0-5.2) X10^6/uL Hgb 13.6 (12.0-16.0) g/dL Hct 40.3 (36-46) % MCV 102.0 H (80-100) fL MCH 34.3 H (26-34) PG MCHC 33.7 (30-36) % RDW 13.3 (11.6-14.8) % Plt Count 354 (150-400) X10^3/uL Neut % (Auto) 51.8 (50-75) % Lymph % (Auto) 37.9 (25-40) % [place] % (Auto) 9.0 (3-14) % Eos % (Auto) 0.8 L (2-4) % Baso % (Auto) 0.5 (0-2) % Neut # (Auto) 3600 (2711-8133) /uL Lymph # (Auto) 2600 (3646-4458) /uL [place] # (Auto) 600 (0-900) /uL Eos # (Auto) 100 (0-450) /uL Baso # (Auto) 0 (0-100) /uL Sodium 137 (137-145) mmol/L Potassium 2.7 L* (3.4-5.1) mmol/L Chloride 99 (98-107) mmol/L Carbon Dioxide 29 (22-32) mmol/L BUN 6 L (7-17) mg/dL Creatinine 0.71 (0.52-1.04) mg/dL Estimated GFR > 60 (>60) mL/min BUN/Creatinine Ratio 8.5 (6-22) Glucose 157 H (70-100) mg/dL Calcium 8.9 (8.4-10.2) mg/dL Total Bilirubin 0.6 (0.2-1.3) mg/dL AST 146 H (14-36) IU/L ALT 72 H (<35) IU/L Alkaline Phosphatase 114 (38-126) U/L Total Protein 7.0 (6.3-8.2) g/dL Albumin 4.0 (3.5-5.0) g/dL Globulin 3.0 (1.7-4.1) g/dL Albumin/Globulin Ratio 1.3 (1.0-2.8) TSH 0.90 (0.47-4.68) uIU/mL Urine Color Yellow Urine Appearance Clear Urine pH 6.0 Normal (4.5-8.0) Ur Specific [place] <=1.005 (1.000-1.035) Urine Protein Negative (Negative) Urine Glucose (UA) Negative (Negative) g/dL Urine Ketones Negative (NEGATIVE) Urine Occult Blood Trace-intact (Negative) Urine Nitrate Negative (Negative) Urine Bilirubin Negative (NEGATIVE) Urine Urobilinogen 0.2 (0.2) E.U./dL Ur Leukocyte Esterase 1+ H (NEGATIVE) Urine RBC 0-1/hpf (0-5/HPF) Urine WBC 1-5/hpf (0-5/HPF) Ur Squamous Epith Cells 0-1 /hpf (0-5/HPF) Urine Bacteria Many (>30) H (None) Ur Culture Indicated? Specimen cultured Vol Urine Centrifuged 10ml (spun) Salicylates < 1.0 (<20) mg/dL U Opiates 300ng/mL cut Negative (Negative) Ur Oxycodone Screen Negative (Negative) Urine Methadone Screen Negative (Negative) Acetaminophen < 10 (10-30) ug/mL Ur Barbiturates Screen Negative (Negative) U Tricyclic Antidepress Negative (Negative) Ur Phencyclidine Scrn Negative (Negative) Ur Amphetamines Screen Negative (Negative) U Methamphetamines Scrn Negative (Negative) Ur MDMA Scrn (Ecstasy) Negative (Negative) U Benzodiazepines Scrn Positive H (Negative) Urine Cocaine Screen Negative (Negative) U Marijuana (THC) Screen Positive H (Negative) Urine Specific [place] Normal (Normal) Ethyl Alcohol 203 H ( - 10) mg/dL Ur Creatinine Normal (Normal) 01/05/25 Range/Units 07:30 WBC (4.5-11.0) X10^3/uL RBC (4.0-5.2) X10^6/uL Hgb (12.0-16.0) g/dL Hct (36-46) % MCV (80-100) fL MCH (26-34) PG MCHC (30-36) % RDW (11.6-14.8) % Plt Count (150-400) X10^3/uL Neut % (Auto) (50-75) % Lymph % (Auto) (25-40) % [place] % (Auto) (3-14) % Eos % (Auto) (2-4) % Baso % (Auto) (0-2) % Neut # (Auto) (6448-3249) /uL Lymph # (Auto) (1524-1553) /uL [place] # (Auto) (0-900) /uL Eos # (Auto) (0-450) /uL Baso # (Auto) (0-100) /uL Sodium (137-145) mmol/L Potassium 3.9 D (3.4-5.1) mmol/L Chloride (98-107) mmol/L Carbon Dioxide (22-32) mmol/L BUN (7-17) mg/dL Creatinine (0.52-1.04) mg/dL Estimated GFR (>60) mL/min BUN/Creatinine Ratio (6-22) Glucose (70-100) mg/dL Calcium (8.4-10.2) mg/dL Total Bilirubin (0.2-1.3) mg/dL AST (14-36) IU/L ALT (<35) IU/L Alkaline Phosphatase (38-126) U/L Total Protein (6.3-8.2) g/dL Albumin (3.5-5.0) g/dL Globulin (1.7-4.1) g/dL Albumin/Globulin Ratio (1.0-2.8) TSH (0.47-4.68) uIU/mL Urine Color Urine Appearance Urine pH (4.5-8.0) Ur Specific [place] (1.000-1.035) Urine Protein (Negative) Urine Glucose (UA) (Negative) g/dL Urine Ketones (NEGATIVE) Urine Occult Blood (Negative) Urine Nitrate (Negative) Urine Bilirubin (NEGATIVE) Urine Urobilinogen (0.2) E.U./dL Ur Leukocyte Esterase (NEGATIVE) Urine RBC (0-5/HPF) Urine WBC (0-5/HPF) Ur Squamous Epith Cells (0-5/HPF) Urine Bacteria (None) Ur Culture Indicated? Vol Urine Centrifuged Salicylates (<20) mg/dL U Opiates 300ng/mL cut (Negative) Ur Oxycodone Screen (Negative) Urine Methadone Screen (Negative) Acetaminophen (10-30) ug/mL Ur Barbiturates Screen (Negative) U Tricyclic Antidepress (Negative) Ur Phencyclidine Scrn (Negative) Ur Amphetamines Screen (Negative) U Methamphetamines Scrn (Negative) Ur MDMA Scrn (Ecstasy) (Negative) U Benzodiazepines Scrn (Negative) Urine Cocaine Screen (Negative) U Marijuana (THC) Screen (Negative) Urine Specific [place] (Normal) Ethyl Alcohol ( - 10) mg/dL Ur Creatinine (Normal) MDM Narrative Medical decision making narrative: LOBO CC: Alcohol intoxication Complicating co-morbidities: Alcohol abuse Medical records reviewed: Previous ED visits for alcohol intoxication Differential considered: Polysubstance abuse Exam documented above, pertinent findings include: Intoxicated 54-year-old female no evidence of trauma or acute injury signs of healing wound Lab Test results independently reviewed as above. Pertinent findings: Potassium 2.7 Alcohol 203 Drug screen positive for marijuana benzodiazepine No leukocytosis or anemia No ASYA or other electrolyte abnormality Liver enzymes mildly elevated AST 146 ALT 72 bilirubin 0.6 overall stable Urinalysis does have leukocytes and bacteria Independently reviewed EKG as above Consultations: [ ] Treatments: Ativan, K rider 40 mEq Re-evaluations: Patient was quite irritable anxious she did receive a dose of Ativan which did seem to help. Discussion: Patient is a 54-year-old female presenting here today for known reason. Reports that she can not sleep has pretty severe PTSD. She does have history of alcohol abuse alcohol level today is 203. She was not elevation liver enzymes but a normal bilirubin. She was given Ativan to help calm her and let her sleep. Abdomen is soft breath sounds are clear vitals are stable. No evidence of UTI. She was afebrile. She has not endorsing any suicidal or homicidal ideations. She was found to be hypokalemic with a potassium of 2.7. She was given a K rider. Unclear what patient's goal for coming to the emergency department is today may require detox versus discharge home 01/05/25, 0700Tree. Signout from Dr Day. 54-year-old female with history of alcohol/polysubstance abuse, PTSD, bipolar disorder, called police last night, she was unable to sleep, unclear goal of ED presentation, does not seem particularly amenable to placement/detox services, no SI/HI, alcohol level 203 noted at 1:35 a.m. earlier this morning, potassium low, IV and oral repletion initiated. We will attempt ambulation and oral fluids this morning. Query patient on her specific goals, if she wants to talk to rn social work about any detox services now this morning. Assumed care. Patient difficult to arouse, but apparently had been walking to the bathroom, will ask for repeat potassium draw. Ambulation and oral fluid challenge ordered. 0820, Patient alert after IV stick for repeat potassium level, repeat potassium level 3.9 adequate. Tolerated ambulation and oral fluid challenge. She declines detox services and we would like to go home, we will arrange taxi transport, discussed with charge entry specialist. Discharged home. Follow up as planned as outpatient. Return precautions discussed Discharge Plan Departure Patient Disposition: Home Clinical Impression: Alcohol intoxication, Acute hypokalemia Instructions: Alcohol Use Disorder Activity Restrictions/Additional Instructions: *You have been diagnosed with alcohol intoxication, low potassium *What to do: At this time it is recommended you stop drinking while under supervision potassium today is slightly low and it was replaced *Continue to take medications as directed *Follow up with your primary care provider in 2-3 days or call [phone] *Return to ER if you should have any new, worsening or concerning symptoms Prescriptions: No Action levothyroxine 50 mcg tablet 50 mcg PO DAILY 90 Days trazodone 150 mg tablet 75 - 150 mg PO ONCE PM PRN (Reason: insomnia) Qty: 90 3RF duloxetine 60 mg capsule,delayed release(DR/EC) 60 mg PO BID Qty: 120 3RF lithium carbonate 300 mg capsule 300 mg PO BEDTIME Qty: 90 3RF Rx Instructions: take with food quetiapine 400 mg tablet 400 mg PO BEDTIME Qty: 90 3RF cholecalciferol (vitamin D3) 50 mcg (2,000 unit) capsule 8,000 unit PO DAILY Patient Comments: dose updated per Citlalli HUIZAR acyclovir 400 mg Tablet 400 mg PO BID Qty: 0 lamotrigine 200 mg tablet 200 mg PO DAILY Qty: 30 2RF prazosin 5 mg capsule 5 mg PO BEDTIME Qty: 90 3RF bupropion HCl 150 mg tablet extended release 24 hr 150 mg PO QAM Qty: 30 0RF alprazolam 0.5 mg tablet 1 mg PO BID PRN (Reason: anxiety) Qty: 60 0RF zolpidem 10 mg tablet 10 mg PO BEDTIME PRN (Reason: insomnia) Qty: 30 0RF methylphenidate HCl 36 mg tablet extended release 24hr 36 mg PO QAM Qty: 30 0RF omega-3 fatty acids [Fish Oil Concentrate] 1,000 mg capsule 1,000 mg PO DAILY insulin lispro [Humalog KwikPen Insulin] 100 unit/mL insulin pen 0 - 100 unit SUBCUT DAILY omeprazole 40 mg capsule,delayed release(DR/EC) 40 mg PO BID Myrbetriq 50 mg tablet extended release 24 hr 50 mg PO DAILY atorvastatin [Lipitor] 10 mg tablet 10 mg PO BEDTIME Referrals: Felicita Jeffery ARNP [Primary Care Provider] - Stand Alone Forms: Patient Portal/API/Survey
--- NOTE | 2025-01-05 01:43 | EKG_ITS ---
[facility] [address] [place] [id number] Test Date: 2025-01-05 Pat Name: Mary Grace Simeon Department: [facility] Room: Gender: Female [employer]: MIGUELINA : 1970 Requested By: Order Number: [id number] Reading MD: Kit Armstrong MD Measurements Intervals [place] Rate: 97 P: 74 IN: 164 QRS: 55 QRSD: 90 T: 58 QT: 384 QTc: 487 Interpretive Statements Normal sinus rhythm Prolonged QT Electronically Signed On 01-05-2025 7:35:10 PST by Kit Armstrong MD
[2025-01-05 01:45] LABS: Add Manual Diff / Slide Review NO; Basophils Absolute Auto 0 /uL (0-100); Basophils Percent Auto 0.5 % (0-2); Eosinophils Absolute Auto 100 /uL (0-450); Eosinophils Percent Auto 0.8 % (2-4); Hematocrit 40.3 % (36-46); Hemoglobin 13.6 g/dL (12.0-16.0); Lymphocytes Absolute Auto 2600 /uL (1100-4500); Lymphocytes Percent Auto 37.9 % (25-40); Mean Corpuscular HGB Conc 33.7 % (30-36); Mean Corpuscular Hemoglobin 34.3 PG (26-34); Monocytes Absolute Auto 600 /uL (0-900); Neutrophils Absolute Auto 3600 /uL (1500-7000); Neutrophils Percent Auto 51.8 % (50-75); Platelet Count 354 X10^3/uL (150-400); Red Blood Cell Count 3.95 X10^6/uL (4.0-5.2); Red Cell Distribution Width 13.3 % (11.6-14.8)
[2025-01-05 01:53] LABS: Acetaminophen < 10 ug/mL (10-30); Alanine Aminotransferase 72 IU/L (<35); Albumin Globulin Ratio 1.3 (1.0-2.8); Alkaline Phosphatase 114 U/L (38-126); Aspartate Aminotransferase 146 IU/L (14-36); BUN Creatinine Ratio 8.5 (6-22); Bilirubin Total 0.6 mg/dL (0.2-1.3); Blood Urea Nitrogen 6 mg/dL (7-17); Calcium 8.9 mg/dL (8.4-10.2); Carbon Dioxide 29 mmol/L (22-32); Chloride 99 mmol/L (98-107); Estimated Glomerular Filt Rate > 60 mL/min (>60); Ethanol (ETOH) 203 mg/dL; Glucose 157 mg/dL (70-100); HEMOLYSIS < 15 (0-50); Salicylate < 1.0 mg/dL (<20); Sodium 137 mmol/L (137-145)
[2025-01-05 01:55] LABS: Potassium 2.7 mmol/L (3.4-5.1)
[2025-01-05] MEDS: POTASSIUM CHLORIDE IN WATER 10 MEQ/100 ML PIGGYBACK 100 MEQ IV ×4 (02:08→05:44)
[2025-01-05] MEDS: SODIUM CHLORIDE 0.9% 1,000 ML 100 ML IV (02:35)
--- NOTE | 2025-01-05 02:55 | PC.NURSE ---
Patient back pack taken out of the room. Checked the bag and patient had several prescription medications, vape pens and a bottle full of vodka.
--- NOTE | 2025-01-05 02:55 | PC.NURSE ---
pt backpack was removed from the room due to medications and alcohol being in the bag. It was placed in locker 6 and locked. Hess for the locker is with patient chart. REBECCA Downs and REBECCA Acevedo notified
[2025-01-05] MEDS: LORazepam 2 MG/ML INJ 1 MG IV (03:03)
[2025-01-05 03:58] LABS: Appearance Urine UA CLEAR; Bilirubin Urine UA NEGATIVE (NEGATIVE); Color Urine UA YELLOW; Glucose Urine UA NEGATIVE (Negative); Ketones Urine UA NEGATIVE (NEGATIVE); Leukocyte Esterase Urine UA 1+ (NEGATIVE); Nitrite Urine UA NEGATIVE (Negative); Occult Blood Urine UA TRACE-INTACT (Negative); Protein Urine UA NEGATIVE (Negative); Specific Gravity Urine UA <=1.005 (1.000-1.035); Urobilinogen Urine UA 0.2 E.U./dL (0.2)
[2025-01-05 04:04] LABS: UR Morphine/Opiate cutoff 300 Negative (Negative); Ur Creatinine Normal (Normal); Ur Specific Gravity Normal (Normal); Urine Amphetamines Negative (Negative); Urine Barbiturates Negative (Negative); Urine Benzodiazepines Positive (Negative); Urine Cocaine Negative (Negative); Urine MDMA Negative (Negative); Urine Methadone Negative (Negative); Urine Methamphetamines Negative (Negative); Urine Oxycodone Negative (Negative); Urine Phencyclidine Negative (Negative); Urine Tetrahydrocannabinol Positive (Negative); Urine Tricyclic Antidepressant Negative (Negative); Urine pH Normal (Normal)
[2025-01-05 04:51] LABS: Bacteria Urine Many (>30); Culture Indicated Urine Specimen Cultured; RBC Urine 0-1/HPF (0-5/HPF); Squamous Epithelial Cell Urine 0-1 /HPF (0-5/HPF); Urine Volume 10mL (spun); WBC Urine 1-5/HPF (0-5/HPF)
[2025-01-05 07:49] LABS: Potassium 3.9 mmol/L (3.4-5.1)
[2025-01-05 07:50] LABS: HEMOLYSIS 90 (0-50)
== END 2025-01-05 08:30 | disposition home or self-care (01) ==
PROVIDERS: Emergency Medicine; Emergency Provider Emergency Medicine; PCP Nurse Practitioner
DX: F10.129 Alcohol abuse with intoxication, unspecified (principal); E87.6 Hypokalemia; F41.9 Anxiety disorder, unspecified; F43.10 Post-traumatic stress disorder, unspecified; R29.6 Repeated falls; B96.20 Unspecified Escherichia coli [E. coli] as the cause of diseases classified elsewhere; R07.9 Chest pain, unspecified; Y90.7 Blood alcohol level of 200-239 mg/100 ml
CPT/HCPCS: 36415; 80053; 80305; 80320; 80329; 81003; 81015; 84132; 84443; 85025; 87077; 87086; 87186; 93005; 96361; 96365; 96366; 96375; 99284; G0480; J2060

== ENCOUNTER 2025-01-11 02:59 | Emergency (ER) | payer MEDICARE, MEDICAID, SELFPAY ==
[2024-04-02 14:15] VITALS: BMI 23.8
[2025-01-11] VITALS (21 sets, daily range): BP systolic 112–124; BP diastolic 62–75; PULSE 79–121; RESP 18; TEMP 36.7–36.9; O2SAT 91–100; BMI 22.1
--- NOTE | 2025-01-11 03:21 | ED.PSYCH ---
HPI - Psych <Ange John, DO - Last Filed: 01/19/25 18:24> General Chief Complaint: Toxicology Problem Stated Complaint: mental health crisis Time Seen by Provider: 01/11/25 03:05 Source: EMS, RN notes reviewed and old records reviewed Mode of arrival: EMS Limitations: no limitations History of Present Illness HPI Narrative: 54-year-old female history of alcoholism states that she drinks regularly. Patient presents with EMS states she has been drinking today and would like help shutting her brain off. Patient states she was not suicidal she has had thoughts before but states she needs to keep herself alive to help her sister she denies any thoughts of harming others. She denies any intent or plan. Patient states no recreational drugs other than marijuana. She mainly complains of her brain not being able to shut off. She has rambling speech and covers a variety of topics but returns to her goal of ?shutting off her brain?. Patient states she was supposed to be on medications but has no consistent with these. She has a counselor named Rosalee. States she has seen Dr. Aaron sounds like she may still follow with him. She indicates that she would like to follow up with her counselor and Dr. Roque but does not seem to be seeking inpatient help for mental health or for detox. Related Data Home Medications Medication Instructions Recorded Confirmed acyclovir 400 mg tablet 400 mg PO BID ##0 01/21/18 01/19/25 levothyroxine 50 mcg tablet 50 mcg PO DAILY 90 days 04/23/18 01/19/25 omega-3 fatty acids 1,000 mg 1,000 mg PO DAILY 01/24/19 01/19/25 capsule (Fish Oil Concentrate) atorvastatin 10 mg tablet (Lipitor) 10 mg PO BEDTIME 07/02/19 01/19/25 cholecalciferol (vitamin D3) 50 8,000 unit PO DAILY 01/29/20 01/19/25 mcg (2,000 unit) capsule insulin lispro 100 unit/mL 0 - 100 unit SUBCUT DAILY 11/19/23 01/19/25 subcutaneous pen (Humalog KwikPen (U-100) Insulin) mirabegron 50 mg tablet,extended 50 mg PO DAILY 11/19/23 01/19/25 release 24 hr (Myrbetriq) omeprazole 40 mg capsule,delayed 40 mg PO BID 11/19/23 01/19/25 release Previous Rx's Medication Instructions Recorded trazodone 150 mg tablet 75 - 150 mg (0.5 - 1 x 150 mg) PO 12/10/23 ONCE PM PRN insomnia #90 tabs lamotrigine 200 mg tablet 200 mg PO DAILY #30 tabs 06/18/24 duloxetine 60 mg capsule,delayed 60 mg PO BID #120 caps 11/27/24 release prazosin 5 mg capsule 5 mg PO BEDTIME #90 caps 11/28/24 methylphenidate HCl 36 mg 36 mg PO QAM #30 tabs 12/29/24 tablet,extended release 24 hr alprazolam 0.5 mg tablet 1 mg (2 x 0.5 mg) PO BID PRN 01/08/25 anxiety #20 tabs bupropion HCl 150 mg 24 hr tablet, 150 mg PO QAM #30 tabs 01/08/25 extended release lithium carbonate 300 mg capsule 300 mg PO BEDTIME #30 caps 01/08/25 quetiapine 400 mg tablet 400 mg PO BEDTIME #30 tabs 01/08/25 zolpidem 10 mg tablet 10 mg PO BEDTIME PRN insomnia #7 01/08/25 tabs Allergies Allergy/AdvReac Type Severity Reaction Status Date / Time adhesive tape Allergy Unknown Verified 01/19/25 12:41 morphine AdvReac Unknown Pt states Verified 01/19/25 12:41 very sharp pain in pancreas area Review of Systems <Ange John DO - Last Filed: 01/19/25 18:24> Review of Systems ROS Unobtainable: All systems reviewed & are unremarkable except as noted in HPI and below Patient History <Ange John DO - Last Filed: 01/19/25 18:24> Medical History Tubal ligation evaluation Anxiety ADHD Recurrent pancreatitis Facet arthropathy, lumbar History of alcohol abuse Diabetes Surgical History History of laparoscopic cholecystectomy Family History Father Multiple myeloma Social History household members: significant other Smoking Status: Current every day smoker alcohol intake: never Smoking Status: Current every day smoker tobacco type: vaping alcohol intake frequency: 0-2 drinks per day Alcohol type: hard liquor Exam <DO Laila Marshall Last Filed: 01/19/25 18:24> Narrative Exam Narrative: GENERAL: Alert and oriented x three, female in mild distress HEENT: Head normocephalic, atraumatic, EOMI, pupils reactive, face symmetric except for mild droop of the left nasolabial fold, patient states this is her baseline, moist mucous membranes NECK: Supple, full range of motion CARDIOVASCULAR: Regular rate and rhythm without murmurs, rubs or gallops. RESPIRATORY: Breath sounds equal bilaterally, no wheezes rales or rhonchi. ABDOMEN: Soft, nontender. Normoactive bowel sounds all 4 quadrants. No guarding or rebound, rigidity, no mass : No CVA tenderness EXTREMITIES: Normal range of motion, no clubbing or edema. Neurovascularly intact NEUROLOGICAL: Cranial nerves II through XII grossly intact. Moving all extremities SKIN: Warm, dry, no petechiae, no rashes or lesions. Initial Vital Signs Initial Vital Signs: Vital Signs Pulse Rate 121 H 01/11/25 03:00 Blood Pressure 124/71 01/11/25 03:00 Pulse Oximetry 93 01/11/25 03:00 <Lin Day DO - Last Filed: 01/11/25 12:09> Initial Vital Signs Initial Vital Signs: Vital Signs Pulse Rate 121 H 01/11/25 03:00 Blood Pressure 124/71 01/11/25 03:00 Pulse Oximetry 93 01/11/25 03:00 Course <Ange John DO - Last Filed: 01/19/25 18:24> Orders Ordered: Discontinued Medications Olanzapine (Olanzapine Odt 10 Mg Tab) 10 mg PO NOW ONE Stop: 01/11/25 03:22 Last Admin: 01/11/25 03:28 Dose: 10 mg Documented By: JOHN Pantoprazole Sodium (Pantoprazole 40 Mg Vial) 40 mg IV NOW ONE Stop: 01/11/25 07:46 Last Admin: 01/11/25 08:15 Dose: 40 mg Documented By: GARRETT Potassium Chloride (Potassium Chloride 20 Meq Tab) 40 meq PO NOW ONE Stop: 01/11/25 04:10 Last Admin: 01/11/25 04:19 Dose: 40 meq Documented By: ZENON Vital Signs Vital signs: Vital Signs - 8 hr 01/11/25 04:30 01/11/25 05:00 01/11/25 05:30 Temperature Pulse Rate 99 H 99 H 93 H Blood Pressure Pulse Oximetry 100 97 95 01/11/25 06:00 01/11/25 06:30 01/11/25 07:00 Temperature Pulse Rate 86 91 H 92 H Blood Pressure Pulse Oximetry 94 97 96 01/11/25 07:30 01/11/25 08:00 01/11/25 08:30 Temperature Pulse Rate 106 H 79 80 Blood Pressure Pulse Oximetry 97 98 98 01/11/25 09:00 01/11/25 09:30 01/11/25 09:49 Temperature 98.5 F Pulse Rate 88 85 Blood Pressure 112/62 Pulse Oximetry 98 98 01/11/25 09:49 01/11/25 10:00 01/11/25 10:30 Temperature Pulse Rate 86 87 89 Blood Pressure Pulse Oximetry 97 98 97 01/11/25 11:00 01/11/25 11:30 01/11/25 12:03 Temperature 98.1 F Pulse Rate 87 80 Blood Pressure 121/67 Pulse Oximetry 96 99 <Lin Day, DO - Last Filed: 01/11/25 12:09> Orders Ordered: Discontinued Medications Olanzapine (Olanzapine Odt 10 Mg Tab) 10 mg PO NOW ONE Stop: 01/11/25 03:22 Last Admin: 01/11/25 03:28 Dose: 10 mg Documented By: JOHN Pantoprazole Sodium (Pantoprazole 40 Mg Vial) 40 mg IV NOW ONE Stop: 01/11/25 07:46 Last Admin: 01/11/25 08:15 Dose: 40 mg Documented By: GARRETT Potassium Chloride (Potassium Chloride 20 Meq Tab) 40 meq PO NOW ONE Stop: 01/11/25 04:10 Last Admin: 01/11/25 04:19 Dose: 40 meq Documented By: LS Vital Signs Vital signs: Vital Signs - 8 hr 01/11/25 04:30 01/11/25 05:00 01/11/25 05:30 Temperature Pulse Rate 99 H 99 H 93 H Blood Pressure Pulse Oximetry 100 97 95 01/11/25 06:00 01/11/25 06:30 01/11/25 07:00 Temperature Pulse Rate 86 91 H 92 H Blood Pressure Pulse Oximetry 94 97 96 01/11/25 07:30 01/11/25 08:00 01/11/25 08:30 Temperature Pulse Rate 106 H 79 80 Blood Pressure Pulse Oximetry 97 98 98 01/11/25 09:00 01/11/25 09:30 01/11/25 09:49 Temperature 98.5 F Pulse Rate 88 85 Blood Pressure 112/62 Pulse Oximetry 98 98 01/11/25 09:49 01/11/25 10:00 01/11/25 10:30 Temperature Pulse Rate 86 87 89 Blood Pressure Pulse Oximetry 97 98 97 01/11/25 11:00 01/11/25 11:30 01/11/25 12:03 Temperature 98.1 F Pulse Rate 87 80 Blood Pressure 121/67 Pulse Oximetry 96 99 [facility] - Psych <Ange John, - Last Filed: 01/19/25 18:24> Lab Data 01/11/25 03:45 01/11/25 03:45 Labs: Lab Results 01/11/25 01/11/25 Range/Units 03:45 04:08 WBC 5.2 (4.5-11.0) X10^3/uL RBC 4.11 (4.0-5.2) X10^6/uL Hgb 14.1 (12.0-16.0) g/dL Hct 42.3 (36-46) % MCV 102.9 H (80-100) fL MCH 34.4 H (26-34) PG MCHC 33.4 (30-36) % RDW 13.4 (11.6-14.8) % Plt Count 320 (150-400) X10^3/uL Neut % (Auto) 27.5 L (50-75) % Lymph % (Auto) 56.4 H (25-40) % [place] % (Auto) 13.6 (3-14) % Eos % (Auto) 1.6 L (2-4) % Baso % (Auto) 0.9 (0-2) % Neut # (Auto) 1400 L (5405-3952) /uL Lymph # (Auto) 2900 (5310-7344) /uL [place] # (Auto) 700 (0-900) /uL Eos # (Auto) 100 (0-450) /uL Baso # (Auto) 0 (0-100) /uL Sodium 143 (137-145) mmol/L Potassium 3.0 L (3.4-5.1) mmol/L Chloride 103 (98-107) mmol/L Carbon Dioxide 28 (22-32) mmol/L BUN 7 (7-17) mg/dL Creatinine 0.77 (0.52-1.04) mg/dL Estimated GFR > 60 (>60) mL/min BUN/Creatinine Ratio 9.1 (6-22) Glucose 153 H (70-100) mg/dL Calcium 8.8 (8.4-10.2) mg/dL Total Bilirubin 0.4 (0.2-1.3) mg/dL AST 143 H (14-36) IU/L ALT 78 H (<35) IU/L Alkaline Phosphatase 99 (38-126) U/L Total Protein 6.9 (6.3-8.2) g/dL Albumin 3.9 (3.5-5.0) g/dL Globulin 3.0 (1.7-4.1) g/dL Albumin/Globulin Ratio 1.3 (1.0-2.8) TSH 1.66 D (0.47-4.68) uIU/mL U Opiates 300ng/mL cut Negative (Negative) Ur Oxycodone Screen Negative (Negative) Urine Methadone Screen Negative (Negative) Ur Barbiturates Screen Negative (Negative) U Tricyclic Antidepress Negative (Negative) Ur Phencyclidine Scrn Negative (Negative) Ur Amphetamines Screen Negative (Negative) U Methamphetamines Scrn Negative (Negative) Ur MDMA Scrn (Ecstasy) Negative (Negative) U Benzodiazepines Scrn Positive H (Negative) Urine Cocaine Screen Negative (Negative) U Marijuana (THC) Screen Negative (Negative) Urine pH Normal (Normal) Urine Specific [place] Normal (Normal) Ethyl Alcohol 234 H ( - 10) mg/dL Ur Creatinine Normal (Normal) Urine Dip Bedside Urine Glucose Negative Bedside Urine Bilirubin - Negative Bedside Urine Ketone - Negative Urine Specific [place] 1.010 Bedside Urine Occult Blood - Negative Bedside Urine pH 6.5 Bedside Urine Protein - Negative Bedside Urine Urobilinogen - Negative Bedside Urine Nitrite - Negative Bedside Urine Leukocytes - Negative Esterase MDM Narrative Medical decision making narrative: Labs CBC shows macrocytosis but otherwise appropriate white count, hemoglobin and platelets. Patient's potassium of 3 electrolytes are otherwise appropriate BUN 7 creatinine 0.77 glucose is 153 AST is 143 ALT is 78, TSH 1.66. ETOH is 234. Urine drug screen is positive for benzos otherwise negative. Point of care is negative Patient received olanzapine and oral potassium. DEPUTY SHERIFF BAILIFF consult was placed. Patient thinks a.m. is consistent with alcohol intoxication which she admits to. She does not have any SI or HI. Patient signed out to me by Dr. John I have seen evaluated patient myself. Attempted ambulation trial still quite unsteady on her feet waiting for clinically sober. She was not hypokalemic today. 1153am patient ambulated steady gait to the restroom overall feeling better. <Lin Day, DO - Last Filed: 01/11/25 12:09> Lab Data Labs: Lab Results 01/11/25 01/11/25 Range/Units 03:45 04:08 WBC 5.2 (4.5-11.0) X10^3/uL RBC 4.11 (4.0-5.2) X10^6/uL Hgb 14.1 (12.0-16.0) g/dL Hct 42.3 (36-46) % MCV 102.9 H (80-100) fL MCH 34.4 H (26-34) PG MCHC 33.4 (30-36) % RDW 13.4 (11.6-14.8) % Plt Count 320 (150-400) X10^3/uL Neut % (Auto) 27.5 L (50-75) % Lymph % (Auto) 56.4 H (25-40) % [place] % (Auto) 13.6 (3-14) % Eos % (Auto) 1.6 L (2-4) % Baso % (Auto) 0.9 (0-2) % Neut # (Auto) 1400 L (8926-8534) /uL Lymph # (Auto) 2900 (4861-7026) /uL [place] # (Auto) 700 (0-900) /uL Eos # (Auto) 100 (0-450) /uL Baso # (Auto) 0 (0-100) /uL Sodium 143 (137-145) mmol/L Potassium 3.0 L (3.4-5.1) mmol/L Chloride 103 (98-107) mmol/L Carbon Dioxide 28 (22-32) mmol/L BUN 7 (7-17) mg/dL Creatinine 0.77 (0.52-1.04) mg/dL Estimated GFR > 60 (>60) mL/min BUN/Creatinine Ratio 9.1 (6-22) Glucose 153 H (70-100) mg/dL Calcium 8.8 (8.4-10.2) mg/dL Total Bilirubin 0.4 (0.2-1.3) mg/dL AST 143 H (14-36) IU/L ALT 78 H (<35) IU/L Alkaline Phosphatase 99 (38-126) U/L Total Protein 6.9 (6.3-8.2) g/dL Albumin 3.9 (3.5-5.0) g/dL Globulin 3.0 (1.7-4.1) g/dL Albumin/Globulin Ratio 1.3 (1.0-2.8) TSH 1.66 D (0.47-4.68) uIU/mL U Opiates 300ng/mL cut Negative (Negative) Ur Oxycodone Screen Negative (Negative) Urine Methadone Screen Negative (Negative) Ur Barbiturates Screen Negative (Negative) U Tricyclic Antidepress Negative (Negative) Ur Phencyclidine Scrn Negative (Negative) Ur Amphetamines Screen Negative (Negative) U Methamphetamines Scrn Negative (Negative) Ur MDMA Scrn (Ecstasy) Negative (Negative) U Benzodiazepines Scrn Positive H (Negative) Urine Cocaine Screen Negative (Negative) U Marijuana (THC) Screen Negative (Negative) Urine pH Normal (Normal) Urine Specific [place] Normal (Normal) Ethyl Alcohol 234 H ( - 10) mg/dL Ur Creatinine Normal (Normal) Urine Dip Bedside Urine Glucose Negative Bedside Urine Bilirubin - Negative Bedside Urine Ketone - Negative Urine Specific [place] 1.010 Bedside Urine Occult Blood - Negative Bedside Urine pH 6.5 Bedside Urine Protein - Negative Bedside Urine Urobilinogen - Negative Bedside Urine Nitrite - Negative Bedside Urine Leukocytes - Negative Esterase MDM Narrative Medical decision making narrative: Labs CBC shows macrocytosis but otherwise appropriate white count, hemoglobin and platelets. Patient's potassium of 3 electrolytes are otherwise appropriate BUN 7 creatinine 0.77 glucose is 153 AST is 143 ALT is 78, TSH 1.66. ETOH is 234. Urine drug screen is positive for benzos otherwise negative. Point of care is negative Patient received olanzapine and oral potassium. DEPUTY SHERIFF BAILIFF consult was placed. Patient thinks a.m. is consistent with alcohol intoxication which she admits to. She does not have any SI or HI. Patient signed out to me by Dr. John I have seen evaluated patient myself. Attempted ambulation trial still quite unsteady on her feet waiting for clinically sober. She was not hypokalemic today. 1153am patient ambulated steady gait to the restroom overall feeling better Discharge Plan Departure Patient Disposition: Home Clinical Impression: Alcohol intoxication, Hypokalemia Activity Restrictions/Additional Instructions: Please follow up, it is recommended you stopped drinking alcohol but would be safest under supervision or in a detox facility. Your potassium as frequently low, it was replaced today this is likely related to your chronic alcohol use. Return to the emergency department for new or concerning changes. Prescriptions: No Action levothyroxine 50 mcg tablet 50 mcg PO DAILY 90 Days trazodone 150 mg tablet 75 - 150 mg PO ONCE PM PRN (Reason: insomnia) Qty: 90 3RF duloxetine 60 mg capsule,delayed release(DR/EC) 60 mg PO BID Qty: 120 3RF bupropion HCl 150 mg tablet extended release 24 hr 150 mg PO QAM Qty: 30 0RF zolpidem 10 mg tablet 10 mg PO BEDTIME PRN (Reason: insomnia) Qty: 7 0RF alprazolam 0.5 mg tablet 1 mg PO BID PRN (Reason: anxiety) Qty: 20 0RF lithium carbonate 300 mg capsule 300 mg PO BEDTIME Qty: 30 0RF Rx Instructions: take with food quetiapine 400 mg tablet 400 mg PO BEDTIME Qty: 30 0RF cholecalciferol (vitamin D3) 50 mcg (2,000 unit) capsule 8,000 unit PO DAILY Patient Comments: dose updated per Citlalli HUIZAR acyclovir 400 mg Tablet 400 mg PO BID Qty: 0 lamotrigine 200 mg tablet 200 mg PO DAILY Qty: 30 2RF prazosin 5 mg capsule 5 mg PO BEDTIME Qty: 90 3RF methylphenidate HCl 36 mg tablet extended release 24hr 36 mg PO QAM Qty: 30 0RF omega-3 fatty acids [Fish Oil Concentrate] 1,000 mg capsule 1,000 mg PO DAILY insulin lispro [Humalog KwikPen Insulin] 100 unit/mL insulin pen 0 - 100 unit SUBCUT DAILY omeprazole 40 mg capsule,delayed release(DR/EC) 40 mg PO BID Myrbetriq 50 mg tablet extended release 24 hr 50 mg PO DAILY atorvastatin [Lipitor] 10 mg tablet 10 mg PO BEDTIME Referrals: Felicita Jeffrey ARNP [Primary Care Provider] - Stand Alone Forms: Patient Portal/API/Survey
[2025-01-11] MEDS: OLANZapine ODT 10 MG TAB PO (03:28)
[2025-01-11 03:50] LABS: Add Manual Diff / Slide Review NO; Basophils Absolute Auto 0 /uL (0-100); Basophils Percent Auto 0.9 % (0-2); Eosinophils Absolute Auto 100 /uL (0-450); Eosinophils Percent Auto 1.6 % (2-4); Hematocrit 42.3 % (36-46); Hemoglobin 14.1 g/dL (12.0-16.0); Lymphocytes Absolute Auto 2900 /uL (1100-4500); Lymphocytes Percent Auto 56.4 % (25-40); Mean Corpuscular HGB Conc 33.4 % (30-36); Mean Corpuscular Hemoglobin 34.4 PG (26-34); Mean Corpuscular Volume 102.9 fL (80-100); Monocytes Absolute Auto 700 /uL (0-900); Monocytes Percent Auto 13.6 % (3-14); Neutrophils Absolute Auto 1400 /uL (1500-7000); Neutrophils Percent Auto 27.5 % (50-75); Platelet Count 320 X10^3/uL (150-400); Red Blood Cell Count 4.11 X10^6/uL (4.0-5.2); Red Cell Distribution Width 13.4 % (11.6-14.8); White Blood Cell Count 5.2 X10^3/uL (4.5-11.0)
[2025-01-11 04:04] LABS: Alanine Aminotransferase 78 IU/L (<35); Albumin 3.9 g/dL (3.5-5.0); Albumin Globulin Ratio 1.3 (1.0-2.8); Alkaline Phosphatase 99 U/L (38-126); Aspartate Aminotransferase 143 IU/L (14-36); BUN Creatinine Ratio 9.1 (6-22); Bilirubin Total 0.4 mg/dL (0.2-1.3); Blood Urea Nitrogen 7 mg/dL (7-17); Calcium 8.8 mg/dL (8.4-10.2); Carbon Dioxide 28 mmol/L (22-32); Chloride 103 mmol/L (98-107); Estimated Glomerular Filt Rate > 60 mL/min (>60); Ethanol (ETOH) 234 mg/dL; Glucose 153 mg/dL (70-100); HEMOLYSIS < 15 (0-50); Sodium 143 mmol/L (137-145); Total Protein 6.9 g/dL (6.3-8.2)
[2025-01-11 04:15] LABS: Ur Creatinine Normal (Normal); Ur Specific Gravity Normal (Normal); Urine Amphetamines Negative (Negative); Urine Barbiturates Negative (Negative); Urine Benzodiazepines Positive (Negative); Urine Cocaine Negative (Negative); Urine MDMA Negative (Negative); Urine Methadone Negative (Negative); Urine Methamphetamines Negative (Negative); Urine Opiates Negative (Negative); Urine Phencyclidine Negative (Negative); Urine THC Negative (Negative); Urine Tricyclic Antidepressant Negative (Negative); Urine pH Normal (Normal)
[2025-01-11 04:16] LABS: Urine Oxycodone Negative (Negative)
[2025-01-11] MEDS: POTASSIUM CHLORIDE 20 MEQ TAB 40 MEQ PO (04:19)
[2025-01-11 04:43] LABS: TSH w/ Reflex to FT4 1.66 uIU/mL (0.47-4.68)
--- NOTE | 2025-01-11 05:51 | PC.NURSE ---
Patient restless, trying to get out of bed, talking to self. This is the same behavior she had last week when in the ER
--- NOTE | 2025-01-11 06:54 | PC.NURSE ---
Patient resting comfortably
[2025-01-11] MEDS: PANTOPRAZOLE 40 MG VIAL IV (08:15)
--- NOTE | 2025-01-11 11:58 | CM.SWNOTE ---
ED MARKET RESEARCH SPECIALIST Note Patient is 54 y/o female who presents to ED due to concern for mental health crisis and ETOH use. Patient sees Psychiatrist Dr. Aaron and Therapist Rosalee Evans [facility]. Per EMR, patient has appt with Dr. Aaron tomorrow 01/12/25 and appt with Rosalee on 01/15/25. Patient is up for discharge upon this MARKET RESEARCH SPECIALIST's presentation to ED. MARKET RESEARCH SPECIALIST briefly enters room. Patient endorses she is feeling better and ready to d/c home. Patient denies any needs from MARKET RESEARCH SPECIALIST and states that she does not want MARKET RESEARCH SPECIALIST to reach out to Dr. Aaron's office, patient states she plans to go to appt tomorrow. Plan: patient to d/c to home upon medical clearance with taxi voucher, patient to f/u with outpatient & Psychiatry team tomorrow. LAKSHMI Hayward
== END 2025-01-11 12:04 | disposition home or self-care (01) ==
PROVIDERS: Emergency Medicine; Emergency Provider Emergency Medicine; PCP Nurse Practitioner
DX: F10.129 Alcohol abuse with intoxication, unspecified (principal); Y90.7 Blood alcohol level of 200-239 mg/100 ml; E87.6 Hypokalemia
CPT/HCPCS: 36415; 80053; 80305; 80320; 81003; 84443; 85025; 96374; 99284; J2470

== ENCOUNTER → 2025-01-19 10:35 | Outpatient (CLI) | payer MEDICARE, MEDICAID, SELFPAY ==
[2024-04-02 14:15] VITALS: BMI 23.8
[2025-01-19 11:08] LABS: Ur Creatinine Normal (Normal); Ur Specific Gravity Normal (Normal); Urine pH Normal (Normal)
[2025-01-19 11:10] LABS: UR Morphine/Opiate cutoff 300 Negative (Negative); Urine Amphetamines Negative (Negative); Urine Barbiturates Negative (Negative); Urine Benzodiazepines Positive (Negative); Urine Cocaine Negative (Negative); Urine MDMA Negative (Negative); Urine Methadone Negative (Negative); Urine Methamphetamines Negative (Negative); Urine Oxycodone Negative (Negative); Urine Phencyclidine Negative (Negative); Urine Tetrahydrocannabinol Positive (Negative); Urine Tricyclic Antidepressant Negative (Negative)
[2025-01-19 11:52] LABS: Lithium 0.7 mmol/L (0.6-1.2)
[2025-01-19 14:49] LABS: Urine N gonorrhoeae NOT DETECTED
[2025-01-19 15:04] LABS: Influenza A - CEPHEID Flu A NEGATIVE (NEGATIVE); Influenza B - CEPHEID Flu B NEGATIVE (NEGATIVE); Respiratory Syncytial Virus Negative (Negative)
[2025-01-19 15:23] LABS: COVID-19 CEPHEID 4-PLEX PCR Negative (Negative)
[2025-01-19 15:23] LABS: Urine Chlamydia NOT DETECTED
[2025-01-19 15:53] LABS: Hepatitis B Surface Antigen NEGATIVE s/c (NEGATIVE)
[2025-01-19 16:13] LABS: HIV 1 & 2 Ab/Ag 4th Gen Combo NEGATIVE (NEGATIVE); Hep C Virus Ab w/Reflex Quant NEGATIVE s/c (NEGATIVE)
[2025-01-21 04:08] LABS: RPR Screen Non Reactive (Non Reactive)
== END ==
PROVIDERS: Nurse Practitioner Family; PCP Nurse Practitioner; Referring Provider Psychiatry & Neurology Psychiatry; Visit Provider Psychiatry & Neurology Psychiatry
DX: Z51.81 Encounter for therapeutic drug level monitoring (principal); N95.0 Postmenopausal bleeding; R05.9 Cough, unspecified; N94.9 Unspecified condition associated with female genital organs and menstrual cycle
CPT/HCPCS: 0241U; 36415; 80178; 80305; 86592; 86695; 86696; 86803; 87077; 87086; 87186; 87210; 87340; 87389; 87491; 87591

== ENCOUNTER 2025-01-27 02:22 | Inpatient (IN) | payer MEDICARE, MEDICAID, SELFPAY ==
[2024-04-02 14:15] VITALS: BMI 23.8
[2025-01-27] VITALS (16 sets, daily range): BP systolic 107–129; BP diastolic 72–82; PULSE 69–100; RESP 12–27; TEMP 36.3–37.3; O2SAT 97–100; BMI 21.9
--- NOTE | 2025-01-27 02:31 | EKG_ITS ---
[address] [address] Test Date: 2025-01-27 Pat Name: Mary Grace Simeon Department: Room: 211 Gender: Female [employer] Adjuster: SHARON ESCOBEDO : 1970 Requested By: Order Number: [id number] Reading MD: Tanner Horton Measurements Intervals [place] Rate: 98 P: 79 KS: 154 QRS: 66 QRSD: 84 T: 68 QT: 364 QTc: 464 Interpretive Statements Normal sinus rhythm Biatrial enlargement Cannot rule out Anterior infarct , age undetermined Electronically Signed On 01-27-2025 18:29:09 PST by Tanner Horton
--- NOTE | 2025-01-27 02:55 | DI.CT.S_ITS ---
PROCEDURE: CT ABDOMEN PELVIS W CON INDICATIONS: ab pain hx pancreatitis TECHNIQUE: After the administration of intravenous contrast, axial sections acquired from the lung bases to the pubic symphysis. Coronal and sagittal reformats were performed. For radiation dose reduction, the following was used: automated exposure control, adjustment of mA and/or kV according to patient size. COMPARISON: [facility], CT, CT ABDOMEN PELVIS W CON, 10/27/2024, 16:47. FINDINGS: Image quality: Diagnostic. Lower Chest: No significant findings. ABDOMEN: Liver: No solid mass. Marked steatosis. Gallbladder: Removed. Biliary ducts: No biliary dilation. Pancreas: No ductal dilation. 11 the blank peripancreatic stranding and appearance of edema is present. No organized fluid collection. Spleen: Size is within normal limits. Adrenal Glands: No adrenal nodules. Kidneys and Ureters: No hydronephrosis. No solid mass. No complex renal cystic lesion which requires follow up. 3 mm right renal calculus. Stomach and Bowel: Normal colonic caliber, without significant wall thickening. Peritoneum: No abnormal intraperitoneal fluid. No free air. Ventral Wall: No significant ventral hernia. Abdominal Nodes: No retroperitoneal or mesenteric adenopathy by size criteria. Vessels: Aorta and inferior vena cava are normal in size. PELVIS: Pelvic Organs: Unremarkable. Bladder: No bladder wall thickening, accounting for underdistention. Pelvic Nodes: No enlarged lymph nodes. Miscellaneous: No inguinal hernias are seen. Bones: No aggressive osseous abnormality. IMPRESSION: [id number] peripancreatic stranding with appearance of edema. No organized fluid collection. Overall appearance appears most suggestive of pancreatitis. Significant hepatic steatosis. Nonobstructing 3 mm right renal calculus. The above findings are concordant with preliminary report. Dictated by: Yanci Palmer M.D. on 01/27/2025 at 7:06 Approved by: Yanci Palmer M.D. on 01/27/2025 at 7:08
[2025-01-27 02:57] LABS: Add Manual Diff / Slide Review NO; Basophils Absolute Auto 0 /uL (0-100); Basophils Percent Auto 0.3 % (0-2); Eosinophils Absolute Auto 0 /uL (0-450); Eosinophils Percent Auto 0.1 % (2-4); Hematocrit 50.1 % (36-46); Hemoglobin 17.2 g/dL (12.0-16.0); Lymphocytes Absolute Auto 1200 /uL (1100-4500); Lymphocytes Percent Auto 9.1 % (25-40); Mean Corpuscular HGB Conc 34.3 % (30-36); Mean Corpuscular Hemoglobin 34.9 PG (26-34); Mean Corpuscular Volume 101.9 fL (80-100); Monocytes Absolute Auto 800 /uL (0-900); Neutrophils Absolute Auto 11200 /uL (1500-7000); Neutrophils Percent Auto 84.5 % (50-75); Platelet Count 329 X10^3/uL (150-400); Red Blood Cell Count 4.92 X10^6/uL (4.0-5.2); Red Cell Distribution Width 12.9 % (11.6-14.8); White Blood Cell Count 13.3 X10^3/uL (4.5-11.0)
[2025-01-27 02:58] LABS: Ethanol (ETOH) < 10 mg/dL
[2025-01-27] MEDS: ONDANSETRON 4 MG/2 ML INJ IV ×6 (03:07→20:26)
[2025-01-27] MEDS: SODIUM CHLORIDE 0.9% 1,000 ML 1000 ML IV (03:07)
[2025-01-27] MEDS: HYDROMORPHONE 0.5 MG INJ IV ×2 (03:08→07:47)
[2025-01-27 03:21] LABS: Alanine Aminotransferase 79 IU/L (<35); Albumin 4.2 g/dL (3.5-5.0); Albumin Globulin Ratio 1.3 (1.0-2.8); Alkaline Phosphatase 101 U/L (38-126); Aspartate Aminotransferase 63 IU/L (14-36); BUN Creatinine Ratio 20.8 (6-22); Bilirubin Total 1.5 mg/dL (0.2-1.3); Blood Urea Nitrogen 11 mg/dL (7-17); Calcium 9.5 mg/dL (8.4-10.2); Carbon Dioxide 22 mmol/L (22-32); Chloride 93 mmol/L (98-107); Estimated Glomerular Filt Rate > 60 mL/min (>60); Globulin 3.3 g/dL (1.7-4.1); Glucose 207 mg/dL (70-100); Potassium 2.9 mmol/L (3.4-5.1); Sodium 128 mmol/L (137-145); Total Protein 7.5 g/dL (6.3-8.2)
[2025-01-27 03:28] LABS: HEMOLYSIS 30 (0-50); Lipase 2750 U/L (23-300)
[2025-01-27] MEDS: POTASSIUM CHLORIDE IN WATER 10 MEQ/100 ML PIGGYBACK 100 MEQ IV ×2 (03:49→04:46)
--- NOTE | 2025-01-27 04:32 | ED.ABDPAIN ---
HPI - Abdominal Pain General Chief Complaint: Abdominal Pain Stated Complaint: ab pain Time Seen by Provider: 01/27/25 02:37 Source: patient and EMS Mode of arrival: EMS History of Present Illness HPI narrative: Patient 54-year-old female history of alcohol abuse presenting today with abdominal pain. She reports that she has been sober for the last 5 days. She is having pretty severe burning pain in her abdomen some nausea. He has been to the ED twice a day last couple of weeks for alcohol-related problems. At 1 point she was pretty severely hypokalemic but never had any abdominal pain now she is having pretty severe abdominal pain. Patient has 13 years of sobriety. However she lost both of her parents and her sister when to present all within a couple of months. She reports she did not go very well. She says she has now been sober 5-6 days. She has an AA sponsor. She decreased her alcohol over time. But really having pretty significant abdominal pain with nausea decrease in appetite Related Data Home Medications Medication Instructions Recorded Confirmed acyclovir 400 mg tablet 400 mg PO BID ##0 01/21/18 01/19/25 levothyroxine 50 mcg tablet 50 mcg PO DAILY 90 days 04/23/18 01/19/25 omega-3 fatty acids 1,000 mg 1,000 mg PO DAILY 01/24/19 01/19/25 capsule (Fish Oil Concentrate) atorvastatin 10 mg tablet (Lipitor) 10 mg PO BEDTIME 07/02/19 01/19/25 cholecalciferol (vitamin D3) 50 8,000 unit PO DAILY 01/29/20 01/19/25 mcg (2,000 unit) capsule insulin lispro 100 unit/mL 0 - 100 unit SUBCUT DAILY 11/19/23 01/19/25 subcutaneous pen (Humalog KwikPen (U-100) Insulin) mirabegron 50 mg tablet,extended 50 mg PO DAILY 11/19/23 01/19/25 release 24 hr (Myrbetriq) omeprazole 40 mg capsule,delayed 40 mg PO BID 11/19/23 01/19/25 release Previous Rx's Medication Instructions Recorded trazodone 150 mg tablet 75 - 150 mg (0.5 - 1 x 150 mg) PO 12/10/23 ONCE PM PRN insomnia #90 tabs lamotrigine 200 mg tablet 200 mg PO DAILY #30 tabs 06/18/24 duloxetine 60 mg capsule,delayed 60 mg PO BID #120 caps 11/27/24 release prazosin 5 mg capsule 5 mg PO BEDTIME #90 caps 11/28/24 methylphenidate HCl 36 mg 36 mg PO QAM #30 tabs 12/29/24 tablet,extended release 24 hr bupropion HCl 150 mg 24 hr tablet, 150 mg PO QAM #30 tabs 01/08/25 extended release lithium carbonate 300 mg capsule 300 mg PO BEDTIME #30 caps 01/08/25 quetiapine 400 mg tablet 400 mg PO BEDTIME #30 tabs 01/08/25 zolpidem 10 mg tablet 10 mg PO BEDTIME PRN insomnia #7 01/08/25 tabs alprazolam 0.5 mg tablet 1 mg (2 x 0.5 mg) PO BID PRN 01/21/25 anxiety #20 tabs Allergies Allergy/AdvReac Type Severity Reaction Status Date / Time adhesive tape Allergy Unknown Verified 01/19/25 12:41 morphine AdvReac Unknown Pt states Verified 01/19/25 12:41 very sharp pain in pancreas area Patient History Medical History Tubal ligation evaluation Anxiety ADHD Recurrent pancreatitis Facet arthropathy, lumbar History of alcohol abuse Diabetes Surgical History History of laparoscopic cholecystectomy Family History Father Multiple myeloma Social History household members: significant other Smoking Status: Current every day smoker alcohol intake: never Smoking Status: Current every day smoker tobacco type: vaping alcohol intake frequency: 0-2 drinks per day Alcohol type: hard liquor Exam Initial Vital Signs Initial Vital Signs: Vital Signs Temperature 97.5 F L 01/27/25 02:30 Pulse Rate 100 H 01/27/25 02:30 Respiratory Rate 21 01/27/25 02:30 Blood Pressure 114/82 01/27/25 02:30 Pulse Oximetry 97 01/27/25 02:30 Oxygen Delivery Method Room Air 01/27/25 02:30 GENERAL: 54-year-old female appears very uncomfortable and in [no acute] distress. HEENT: Head atraumatic,EOMI, pupils reactive, face symmetric, [moist] mucous membranes CARDIOVASCULAR: Regular rate and rhythm without murmurs, rubs or gallops. RESPIRATORY: Breath sounds equal bilaterally, no wheezes rales or rhonchi. ABDOMEN: Soft, periumbilical pain no guarding no rebound no distention : No CVA tenderness EXTREMITIES: Normal range of motion, no clubbing or edema. Neurovascularly intact NEUROLOGICAL: Alert and oriented x4.Normal gait and speech. No focal deficits SKIN: Warm, dry, no laceration, no petechiae, no rashes or lesions. Course Orders Ordered: ED Orders 01/27/25 02:33 Complete Blood Count AUTO DIFF Stat ETOH [Ethanol (ETOH)] Stat 01/27/25 02:41 EKG-12 Lead Stat 01/27/25 02:55 CT abdomen pelvis w con Stat 01/27/25 03:04 Comprehensive Metabolic Panel Stat Lipase Stat 01/27/25 05:01 Urine Microscopic Stat Ondansetron HCl (Ondansetron 4 Mg/2 Ml Inj) 4 mg IV NOW PRN PRN Reason: Nausea And Vomiting Last Admin: 01/27/25 03:07 Dose: 4 mg Documented By: ZENON Ondansetron HCl (Ondansetron 4 Mg Odt) 4 mg PO NOW PRN PRN Reason: Nausea And Vomiting Discontinued Medications Hydromorphone HCl (Hydromorphone 0.5 Mg Inj) 0.5 mg IV NOW ONE Stop: 01/27/25 02:56 Last Admin: 01/27/25 03:08 Dose: 0.5 mg Documented By: ZENON Hydromorphone HCl (Hydromorphone 1 Mg Inj) 1 mg IV NOW ONE Stop: 01/27/25 04:45 Last Admin: 01/27/25 04:49 Dose: 1 mg Sodium Chloride (Normal Saline 0.9%) 1,000 mls @ 1,000 mls/hr IV BOLUS ONE Stop: 01/27/25 03:54 Last Infusion: 01/27/25 04:16 Dose: Infused Documented By: Admin: 01/27/25 03:07 Dose: 1,000 mls/hr Documented By: ZENON POTASSIUM CHLORIDE IN WATER (Potassium Cl 10 Meq/100 Ml Lilliana) 10 meq in 100 mls @ 100 mls/hr IV Q1H ARIADNA Stop: 01/27/25 05:44 Last Admin: 01/27/25 03:49 Dose: 100 mls/hr Documented By: Ondansetron HCl (Ondansetron 4 Mg/2 Ml Inj) 4 mg IV NOW ONE Stop: 01/27/25 05:31 Last Admin: 01/27/25 05:33 Dose: 4 mg Vital Signs Vital signs: Vital Signs - 8 hr 01/27/25 02:30 01/27/25 02:33 01/27/25 03:00 Temperature 97.5 F L Pulse Rate 100 H 94 H 96 H Respiratory Rate 21 18 19 Blood Pressure 114/82 Pulse Oximetry 97 99 98 Oxygen Delivery Method Room Air 01/27/25 03:01 01/27/25 03:01 01/27/25 03:40 Temperature Pulse Rate 94 H 80 Respiratory Rate 21 Blood Pressure 118/81 Pulse Oximetry 98 98 Oxygen Delivery Method 01/27/25 04:00 01/27/25 04:30 01/27/25 04:51 Temperature Pulse Rate 71 74 72 Respiratory Rate 18 27 H 24 Blood Pressure Pulse Oximetry 100 99 100 Oxygen Delivery Method 01/27/25 04:51 Temperature Pulse Rate Respiratory Rate Blood Pressure 118/75 Pulse Oximetry Oxygen Delivery Method MDM - Abdominal Pain Lab Data 01/27/25 02:33 01/27/25 03:04 Labs: Lab Results 01/27/25 01/27/25 01/27/25 Range/Units 02:33 03:04 05:01 WBC 13.3 H (4.5-11.0) X10^3/uL RBC 4.92 (4.0-5.2) X10^6/uL Hgb 17.2 H (12.0-16.0) g/dL Hct 50.1 H (36-46) % MCV 101.9 H (80-100) fL MCH 34.9 H (26-34) PG MCHC 34.3 (30-36) % RDW 12.9 (11.6-14.8) % Plt Count 329 (150-400) X10^3/uL Neut % (Auto) 84.5 H (50-75) % Lymph % (Auto) 9.1 L (25-40) % [place] % (Auto) 6.0 (3-14) % Eos % (Auto) 0.1 L (2-4) % Baso % (Auto) 0.3 (0-2) % Neut # (Auto) 39703 H (4215-0090) /uL Lymph # (Auto) 1200 (8030-8669) /uL [place] # (Auto) 800 (0-900) /uL Eos # (Auto) 0 (0-450) /uL Baso # (Auto) 0 (0-100) /uL Sodium 128 L (137-145) mmol/L Potassium 2.9 L (3.4-5.1) mmol/L Chloride 93 L (98-107) mmol/L Carbon Dioxide 22 (22-32) mmol/L BUN 11 (7-17) mg/dL Creatinine 0.53 (0.52-1.04) mg/dL Estimated GFR > 60 (>60) mL/min BUN/Creatinine Ratio 20.8 (6-22) Glucose 207 H (70-100) mg/dL Calcium 9.5 (8.4-10.2) mg/dL Total Bilirubin 1.5 H (0.2-1.3) mg/dL AST 63 H (14-36) IU/L ALT 79 H (<35) IU/L Alkaline Phosphatase 101 (38-126) U/L Total Protein 7.5 (6.3-8.2) g/dL Albumin 4.2 (3.5-5.0) g/dL Globulin 3.3 (1.7-4.1) g/dL Albumin/Globulin Ratio 1.3 (1.0-2.8) Lipase 2750 H (23-300) U/L Urine RBC None seen (0-5/HPF) Urine WBC 0-1/hpf (0-5/HPF) Ur Squamous Epith Cells 5-10 /hpf H (0-5/HPF) Urine Bacteria Moderate (10-30) H (None) Ur Culture Indicated? Cult not indicated Vol Urine Centrifuged 10ml (spun) Ethyl Alcohol < 10 ( - 10) mg/dL Point of care testing: Point of Care Testing Test Results Negative Urine Dip Bedside Urine Glucose Negative Bedside Urine Bilirubin - Negative Bedside Urine Ketone + 15 Urine Specific [place] 1.010 Bedside Urine Occult Blood - Negative Bedside Urine pH 7.5 Bedside Urine Protein - Negative Bedside Urine Urobilinogen - Negative Bedside Urine Nitrite - Negative Bedside Urine Leukocytes - Negative Esterase Imaging Data CT scan - abdomen/pelvis: Radiologist's Impression: Preliminary report findings appear consistent with acute edematous pancreatitis. No acute peripancreatic collection. No pseudoaneurysms splanchnic main occlusion ECG Data Attestation: I personally reviewed and interpreted this ECG as follows: Interpretation: Normal sinus rhythm rate 98 ND interval 154 QRS 84 QTC 464 biatrial enlargement MDM Narrative Medical decision making narrative: Patient 54-year-old female history of alcohol abuse presenting today with abdominal pain. She was found to have pancreatitis with lipase of 2750. CT also confirms pancreatitis without evidence of necrotizing pancreatitis. Blood work reviewed Liver enzymes are actually improved from previously today AST 63 ALT 79 bilirubin 1.5 which is more elevated. Mild hyponatremia sodium 128 hypokalemia potassium 2.9 WBC 13.3, hemoglobin 17.2/50.1 CT confirms pancreatitis with out complications Received normal saline and Dilaudid. Still having quite a bit of pain despite 2 doses of IV pain medication. She was some mild electrolyte abnormality. Do not suspect a choledocholithiasis at this time. Liver enzymes have actually improved. Mild elevation bilirubin. Patient not having any active vomiting in the ED Dr. Patel accepts patient Discharge Plan Departure Patient Disposition: Admitted as Observation Clinical Impression: Pancreatitis Admit Date/Time: 01/27/25 05:09 Admit Provider: Monica Patel
[2025-01-27] MEDS: HYDROMORPHONE 1 MG INJ IV ×2 (04:49→16:26)
--- NOTE | 2025-01-27 05:09 | P.HP_ITS ---
History of Present Illness History of Present Illness Chief complaint: abd pain Alcohol associated Acute Pancreatitis Narrative: Mary Grace Simeon is 54 y/o F with h/o GERD, DM 2, ADHD, Anxiety, Hypothyroidism, Alcoholism, Alcohol associated Pancreatitis, who states she had been sober for 13 years, [facility] Medical History Tubal ligation evaluation Anxiety ADHD Recurrent pancreatitis Facet arthropathy, lumbar History of alcohol abuse Diabetes Surgical History History of laparoscopic cholecystectomy Family History Father Multiple myeloma Social History household members: significant other Smoking Status: Current every day smoker alcohol intake: never Meds Home Medications and Allergies Home Medications Medication Instructions Recorded Confirmed Type acyclovir 400 mg tablet 400 mg PO BID ##0 01/21/18 01/19/25 History levothyroxine 50 mcg tablet 50 mcg PO DAILY 90 days 04/23/18 01/19/25 History omega-3 fatty acids 1,000 mg 1,000 mg PO DAILY 01/24/19 01/19/25 History capsule (Fish Oil Concentrate) atorvastatin 10 mg tablet (Lipitor) 10 mg PO BEDTIME 07/02/19 01/19/25 History cholecalciferol (vitamin D3) 50 8,000 unit PO DAILY 01/29/20 01/19/25 History mcg (2,000 unit) capsule insulin lispro 100 unit/mL 0 - 100 unit SUBCUT DAILY 11/19/23 01/19/25 History subcutaneous pen (Humalog KwikPen (U-100) Insulin) mirabegron 50 mg tablet,extended 50 mg PO DAILY 11/19/23 01/19/25 History release 24 hr (Myrbetriq) omeprazole 40 mg capsule,delayed 40 mg PO BID 11/19/23 01/19/25 History release trazodone 150 mg tablet 75 - 150 mg (0.5 - 1 x 150 mg) PO 12/10/23 01/19/25 Rx ONCE PM PRN insomnia #90 tabs lamotrigine 200 mg tablet 200 mg PO DAILY #30 tabs 06/18/24 01/19/25 Rx duloxetine 60 mg capsule,delayed 60 mg PO BID #120 caps 11/27/24 01/19/25 Rx release prazosin 5 mg capsule 5 mg PO BEDTIME #90 caps 11/28/24 01/19/25 Rx methylphenidate HCl 36 mg 36 mg PO QAM #30 tabs 12/29/24 01/19/25 Rx tablet,extended release 24 hr bupropion HCl 150 mg 24 hr tablet, 150 mg PO QAM #30 tabs 01/08/25 01/19/25 Rx extended release lithium carbonate 300 mg capsule 300 mg PO BEDTIME #30 caps 01/08/25 01/19/25 Rx quetiapine 400 mg tablet 400 mg PO BEDTIME #30 tabs 01/08/25 01/19/25 Rx zolpidem 10 mg tablet 10 mg PO BEDTIME PRN insomnia #7 01/08/25 01/19/25 Rx tabs alprazolam 0.5 mg tablet 1 mg (2 x 0.5 mg) PO BID PRN 01/21/25 Rx anxiety #20 tabs Allergies Allergy/AdvReac Type Severity Reaction Status Date / Time adhesive tape Allergy Unknown Verified 01/19/25 12:41 morphine AdvReac Unknown Pt states Verified 01/19/25 12:41 very sharp pain in pancreas area Review of Systems Review of Systems ROS: Yes All systems reviewed with the patient and are negative except as otherwise documented Exam Vital Signs (past 8 hours): - 01/27/25 02:30 01/27/25 02:33 01/27/25 03:00 Temperature 97.5 F L Pulse Rate 100 H 94 H 96 H Respiratory Rate 21 18 19 Blood Pressure 114/82 Pulse Oximetry 97 99 98 Oxygen Delivery Method Room Air 01/27/25 03:01 01/27/25 03:01 01/27/25 03:40 Temperature Pulse Rate 94 H 80 Respiratory Rate 21 Blood Pressure 118/81 Pulse Oximetry 98 98 Oxygen Delivery Method 01/27/25 04:00 01/27/25 04:30 01/27/25 04:51 Temperature Pulse Rate 71 74 72 Respiratory Rate 18 27 H 24 Blood Pressure Pulse Oximetry 100 99 100 Oxygen Delivery Method 01/27/25 04:51 Temperature Pulse Rate Respiratory Rate Blood Pressure 118/75 Pulse Oximetry Oxygen Delivery Method Oxygen Delivery Method Room Air Objective Labs 01/27/25 02:33 01/27/25 03:04 Labs: Laboratory Results - last 24 hr 01/27/25 01/27/25 02:33 03:04 WBC 13.3 H RBC 4.92 Hgb 17.2 H Hct 50.1 H MCV 101.9 H MCH 34.9 H MCHC 34.3 RDW 12.9 Plt Count 329 Neut % (Auto) 84.5 H Lymph % (Auto) 9.1 L [place] % (Auto) 6.0 Eos % (Auto) 0.1 L Baso % (Auto) 0.3 Neut # (Auto) 09789 H Lymph # (Auto) 1200 [place] # (Auto) 800 Eos # (Auto) 0 Baso # (Auto) 0 Sodium 128 L Potassium 2.9 L Chloride 93 L Carbon Dioxide 22 BUN 11 Creatinine 0.53 Estimated GFR > 60 BUN/Creatinine Ratio 20.8 Glucose 207 H Calcium 9.5 Total Bilirubin 1.5 H AST 63 H ALT 79 H Alkaline Phosphatase 101 Total Protein 7.5 Albumin 4.2 Globulin 3.3 Albumin/Globulin Ratio 1.3 Lipase 2750 H Ethyl Alcohol < 10 Assessment & Plan Assessment and plan (1) Acute pancreatitis: Status: Acute (2) Acute hyponatremia: Status: Acute (3) Transaminitis: Status: Acute Time-Based Coding :: [TOTAL MINUTES] spent with patient and on the chart (including review of chart, obtaining history, exam, reviewing outside data, placing orders, documenting exam and treatment plan, and counseling patient) on [DATE].
[2025-01-27 05:16] LABS: Bacteria Urine Moderate (10-30); Culture Indicated Urine Cult Not Indicated; RBC Urine None Seen (0-5/HPF); Squamous Epithelial Cell Urine 5-10 /HPF (0-5/HPF); Urine Volume 10mL (spun); WBC Urine 0-1/HPF (0-5/HPF)
--- NOTE | 2025-01-27 06:20 | PC.NURSE ---
Pt admitted at 0549, med reconciliation done and admission assessment, waiting on operations supervisor 2nd shift doctor to see patient and do initial history. Call light withing reach and bed alarm in place.
--- NOTE | 2025-01-27 07:28 | P.HP_ITS ---
History of Present Illness History of Present Illness Date Patient Seen: 01/27/25 Chief complaint: abd pain Alcohol associated Acute Pancreatitis Narrative: Mary Grace Simeon is 54 y/o F with h/o GERD, DM 2, ADHD, Anxiety, PTSD, Bipolar disorder, current daily cig smoker ,Hypothyroidism, Alcoholism, recurrent Alcohol induced Pancreatitis, pt states last episode was several years ago, who states she had been sober for 13 years, however about 3 months ago she started drinking Alcohol again, starting with a few beers per day, then to a few shots of vodka daily, increased to 5 shots per day of Vodka, then started cutting back , and about 5 days ago, cold turkey'd herself and quit drinking Alcohol completely, as she intends to quit , and has a AA sponsor. She states she noted nausea, about 3 days ago, followed by progressively increasing upper abd and mulugeta umbilical pain, denies radiation of her abd p0ain to the back. She denies vomiting or diarrhea. She had noted sweats and chills, no fever or body aches. Denies CP, SOB, Light Headedness or Syncope Chart review indicates: She was seen in ED on 01/05/25 had Urine cx + for E Coli, and given Keflerx x 10 days. She had been seen at a walk in clinic on 01/19/25 for post menopausal spotting after intercourse, her UA that day was clear of any infection. She denies dysuria or hematuria or vaginal bleeding currently. Was also seen in ED on 01/11/25, irritable and was given Ativan as well as K supp as was hypokalemic ( 3.0), was also intoxicated with Alcohol, ETOH level was 234, AST 143, ALT 78 She states she lives at home by herself and as her abd pain was getting worse she came to ED for evaluation. In ED, she was afebrile HR 100, RR 21, BP 114/82, O2 sats : 97 % on RA Lipase was up at 2750 K low at 2.9, Sodium low at 128, WBC up at 13.3 K Mild Transaminase elevation, ALT > AST Mild T Bili elevation CTAP: per ED provider ( prelim Report per Radiology ) : Acute Pancreatitis without Necrosis / complications, report Full Radiology not available as of yet. Pt was given IV Zofran, Diluadid IV , NS 1 L , K 40 m eq IV, and was referred to Hospitalist team for admission. [facility] Medical History (Updated 01/27/25 @ 08:05 by Monica Patel MD) DM type 2 (diabetes mellitus, type 2) Tubal ligation evaluation Anxiety ADHD Recurrent pancreatitis Facet arthropathy, lumbar History of alcohol abuse Diabetes Surgical History History of laparoscopic cholecystectomy Family History Father Multiple myeloma Social History household members: significant other Smoking Status: Current every day smoker alcohol intake: never Meds Home Medications and Allergies Home Medications Medication Instructions Recorded Confirmed Type acyclovir 400 mg tablet 400 mg PO BID ##0 01/21/18 01/27/25 History levothyroxine 50 mcg tablet 50 mcg PO DAILY 90 days 04/23/18 01/27/25 History atorvastatin 10 mg tablet (Lipitor) 10 mg PO BEDTIME 07/02/19 01/27/25 History cholecalciferol (vitamin D3) 50 8,000 unit PO DAILY 01/29/20 01/27/25 History mcg (2,000 unit) capsule insulin lispro 100 unit/mL 0 - 100 unit SUBCUT DAILY 11/19/23 01/27/25 History subcutaneous pen (Humalog KwikPen (U-100) Insulin) mirabegron 50 mg tablet,extended 50 mg PO DAILY 11/19/23 01/27/25 History release 24 hr (Myrbetriq) omeprazole 40 mg capsule,delayed 40 mg PO BID gerd 11/19/23 01/27/25 History release lamotrigine 200 mg tablet 200 mg PO DAILY #30 tabs 06/18/24 01/27/25 Rx duloxetine 60 mg capsule,delayed 60 mg PO BID #120 caps 11/27/24 01/27/25 Rx release prazosin 5 mg capsule 5 mg PO BEDTIME #90 caps 11/28/24 01/27/25 Rx methylphenidate HCl 36 mg 36 mg PO QAM #30 tabs 12/29/24 01/27/25 Rx tablet,extended release 24 hr bupropion HCl 150 mg 24 hr tablet, 150 mg PO QAM #30 tabs 01/08/25 01/27/25 Rx extended release lithium carbonate 300 mg capsule 300 mg PO BEDTIME #30 caps 01/08/25 01/27/25 Rx zolpidem 10 mg tablet 10 mg PO BEDTIME PRN insomnia #7 01/08/25 01/27/25 Rx tabs alprazolam 0.5 mg tablet 1 mg (2 x 0.5 mg) PO BID PRN 01/21/25 01/27/25 Rx anxiety #20 tabs trazodone 150 mg tablet 150 mg PO ONCE PM PRN insomnia 01/27/25 01/27/25 History Allergies Allergy/AdvReac Type Severity Reaction Status Date / Time adhesive tape Allergy Unknown Verified 01/19/25 12:41 morphine AdvReac Unknown Pt states Verified 01/19/25 12:41 very sharp pain in pancreas area Exam Vital Signs (past 8 hours): - 01/27/25 02:30 01/27/25 02:33 01/27/25 03:00 Temperature 97.5 F L Pulse Rate 100 H 94 H 96 H Respiratory Rate 21 18 19 Blood Pressure 114/82 Pulse Oximetry 97 99 98 Oxygen Delivery Method Room Air Oxygen Flow Rate 01/27/25 03:01 01/27/25 03:01 01/27/25 03:40 Temperature Pulse Rate 94 H 80 Respiratory Rate 21 Blood Pressure 118/81 Pulse Oximetry 98 98 Oxygen Delivery Method Oxygen Flow Rate 01/27/25 04:00 01/27/25 04:30 01/27/25 04:51 Temperature Pulse Rate 71 74 72 Respiratory Rate 18 27 H 24 Blood Pressure Pulse Oximetry 100 99 100 Oxygen Delivery Method Oxygen Flow Rate 01/27/25 04:51 01/27/25 06:11 Temperature 97.8 F Pulse Rate 73 Respiratory Rate 18 Blood Pressure 118/75 118/76 Pulse Oximetry 98 Oxygen Delivery Method Oxygen Flow Rate 0 Oxygen Delivery Method Room Air Oxygen Flow Rate 0 Narrative Exam Narrative: Awake , alert sitting in bed, answering questions appropriately. Asking for Pain medication./ Abd Pain and states she is hungry HEENT: At/ NC EOMI, PERRL, No scleral Icterus, conjunctivae are normal Neck is supple, no TMG, No adenopathy Chest : CTA , No W/Rales or Rhonchi. BS present , equal. Normal Resp Effort Heart: RRR No M/G/R Abd: Tender + upper abd and periumbilical area. No Gaurding, rebound or Distention No flank tenderness bilat. BS present and WNL. Ext: no edema, no calf tenderness bilat. PP 2 + bilat symmet Skin: warm and dry, no jaundice, no bruising Neuro: A and O x 4 ,non focal no asterixis Psyche: Normal mood Judgement is normal Objective Labs 01/27/25 02:33 01/27/25 03:04 Labs: Laboratory Results - last 24 hr 01/27/25 01/27/25 01/27/25 02:33 03:04 05:01 WBC 13.3 H RBC 4.92 Hgb 17.2 H Hct 50.1 H MCV 101.9 H MCH 34.9 H MCHC 34.3 RDW 12.9 Plt Count 329 Neut % (Auto) 84.5 H Lymph % (Auto) 9.1 L [place] % (Auto) 6.0 Eos % (Auto) 0.1 L Baso % (Auto) 0.3 Neut # (Auto) 87786 H Lymph # (Auto) 1200 [place] # (Auto) 800 Eos # (Auto) 0 Baso # (Auto) 0 Sodium 128 L Potassium 2.9 L Chloride 93 L Carbon Dioxide 22 BUN 11 Creatinine 0.53 Estimated GFR > 60 BUN/Creatinine Ratio 20.8 Glucose 207 H Calcium 9.5 Total Bilirubin 1.5 H AST 63 H ALT 79 H Alkaline Phosphatase 101 Total Protein 7.5 Albumin 4.2 Globulin 3.3 Albumin/Globulin Ratio 1.3 Lipase 2750 H Urine RBC None seen Urine WBC 0-1/hpf Ur Squamous Epith Cells 5-10 /hpf H Urine Bacteria Moderate (10-30) H Ur Culture Indicated? Cult not indicated Vol Urine Centrifuged 10ml (spun) Ethyl Alcohol < 10 Assessment & Plan Assessment and plan (1) DM type 2 (diabetes mellitus, type 2): Problem details: BG q 6 hours Reg Insulin per SS Qualifiers: Diabetes mellitus intermission coordinator insulin use: without snf use Diabetes mellitus complication status: without complication Qualified Code(s): E11.9 - Type 2 diabetes mellitus without complications Status: Acute Time-Based Coding :: [TOTAL MINUTES] spent with patient and on the chart (including review of chart, obtaining history, exam, reviewing outside data, placing orders, documenting exam and treatment plan, and counseling patient) on [DATE].
[2025-01-27] MEDS: SODIUM CHLORIDE 0.9% 1,000 ML 150 ML IV ×2 (07:41→12:56)
[2025-01-27] MEDS: HYDROMORPHONE 0.5 MG INJ 1 MG IV ×2 (09:38→12:40)
[2025-01-27] MEDS: ENOXAPARIN 40 MG/0.4 ML SYRINGE SUBCUT (09:38)
[2025-01-27] MEDS: LORazepam 1 MG TABLET PO (09:40)
--- NOTE | 2025-01-27 10:38 | CM.DANOTE ---
Initial DCP Assessment Visit Note Reviewed EMR and team rounds for pt's medical status and updates. Pt lives independently in her own apartment with her significant other. He will plan to transport her home once she's medically stable for d/c, anticipated in 1-2 days. Payor: [facility] Pt is a 54 year-old F with a hx of ETOH abuse disorder who presented to [facility] ED yesterday with c/o worsening, burning abdominal pain/nausea for the last 5-days. She has a hx of 13-years of sobriety, however started drinking again about 5-months ago after having both parents and her sister within a few months of each other. In the ED, she was found to have alcohol induced pancreatitis. She swas started on IV fluids/pain meds/Zofran and admitted to [facility]BS for further tx and monitoring. CIWA protocol was started today after she began showing signs/symptoms of ETOH withdrawal. Pt shares that she does attend AA meetings, and already has a very supportive sponsor to support her following d/c. DCP will continue to monitor and assist with any evolving d/c assistance/resource needs. Discharge Planning/Care Management CM Discharge Assessment Start: 01/27/25 10:24 Freq: Status: Active Protocol: Document 01/27/25 10:37 DPL (Rec: 01/27/25 10:38 DPL [id number]) Discharge Planning Assessment Assigned Corporate Traffic Manager LUIS EDUARDO Nunez Advance Directives? No History Provided By Patient,Medical Record Has Patient been admitted in last 30 No days? Prior Living Arrangements Apartment/Condo Household Members significant other Independent with ADL's Yes Is patient alert and oriented? Yes Comment N/A Caregiver for Another No Comment N/A Comment N/A Comment No identified home d/c needs identified at this time. Barriers to Discharge No Discharge Plan Home Transportation Arrangement Partner Referrals Initiated None needed Review Status In Process Please Provide Date Initial DC 01/27/25 Assessment Was Performed
--- NOTE | 2025-01-27 11:26 | P.HP_ITS ---
History of Present Illness History of Present Illness Date Patient Seen: 01/27/25 Time Patient Seen: 09:10 Chief complaint: abd pain Alcohol associated Acute Pancreatitis Narrative: Per overnight provider, Mary Grace Simeon is 54 y/o F with h/o GERD, DM 2, ADHD, Anxiety, PTSD, Bipolar disorder, current daily cig smoker ,Hypothyroidism, Alcoholism, recurrent Alcohol induced Pancreatitis, pt states last episode was several years ago, who states she had been sober for 13 years, however about 3 months ago she started drinking Alcohol again, starting with a few beers per day, then to a few shots of vodka daily, increased to 5 shots per day of Vodka, then started cutting back , and about 5 days ago, cold turkey'd herself and quit drinking Alcohol completely, as she intends to quit , and has a AA sponsor. She states she noted nausea, about 3 days ago, followed by progressively increasing upper abd and mulugeta umbilical pain, denies radiation of her abd p0ain to the back. She denies vomiting or diarrhea. She had noted sweats and chills, no fever or body aches. Denies CP, SOB, Light Headedness or Syncope Chart review indicates: She was seen in ED on 01/05/25 had Urine cx + for E Coli, and given Keflerx x 10 days. She had been seen at a walk in clinic on 01/19/25 for post menopausal spotting after intercourse, her UA that day was clear of any infection. She denies dysuria or hematuria or vaginal bleeding currently. Was also seen in ED on 01/11/25, irritable and was given Ativan as well as K supp as was hypokalemic ( 3.0), was also intoxicated with Alcohol, ETOH level was 234, AST 143, ALT 78 She states she lives at home by herself and as her abd pain was getting worse she came to ED for evaluation. In ED, she was afebrile HR 100, RR 21, BP 114/82, O2 sats : 97 % on RA Lipase was up at 2750 K low at 2.9, Sodium low at 128, WBC up at 13.3 K Mild Transaminase elevation, ALT > AST Mild T Bili elevation CTAP: per ED provider ( prelim Report per Radiology ) : Acute Pancreatitis without Necrosis / complications, report Full Radiology not available as of yet. Pt was given IV Zofran, Diluadid IV , NS 1 L , K 40 m eq IV, and was referred to Hospitalist team for admission. Interval history: 54 F admitted with alcoholic pancreatitis. Still with pain and distension this morning. Increased dilaudid. Also mildly tremulous placed on CIWA protocol with prn ativan. She denies recent fever, chills. After increased dilaudid her pain improved from a 9 to a 6. [facility] Medical History (Updated 01/27/25 @ 08:05 by Monica Patel MD) DM type 2 (diabetes mellitus, type 2) Tubal ligation evaluation Anxiety ADHD Recurrent pancreatitis Facet arthropathy, lumbar History of alcohol abuse Diabetes Surgical History History of laparoscopic cholecystectomy Family History Father Multiple myeloma Social History household members: significant other Smoking Status: Current every day smoker alcohol intake: never Meds Home Medications and Allergies Home Medications Medication Instructions Recorded Confirmed Type acyclovir 400 mg tablet 400 mg PO BID ##0 01/21/18 01/27/25 History levothyroxine 50 mcg tablet 50 mcg PO DAILY 90 days 04/23/18 01/27/25 History atorvastatin 10 mg tablet (Lipitor) 10 mg PO BEDTIME 07/02/19 01/27/25 History cholecalciferol (vitamin D3) 50 8,000 unit PO DAILY 01/29/20 01/27/25 History mcg (2,000 unit) capsule insulin lispro 100 unit/mL 0 - 100 unit SUBCUT DAILY 11/19/23 01/27/25 History subcutaneous pen (Humalog KwikPen (U-100) Insulin) mirabegron 50 mg tablet,extended 50 mg PO DAILY 11/19/23 01/27/25 History release 24 hr (Myrbetriq) omeprazole 40 mg capsule,delayed 40 mg PO BID gerd 11/19/23 01/27/25 History release lamotrigine 200 mg tablet 200 mg PO DAILY #30 tabs 06/18/24 01/27/25 Rx duloxetine 60 mg capsule,delayed 60 mg PO BID #120 caps 01/02/25 03/04/25 Rx release prazosin 5 mg capsule 5 mg PO BEDTIME #90 caps 11/28/24 01/27/25 Rx methylphenidate HCl 36 mg 36 mg PO QAM #30 tabs 12/29/24 01/27/25 Rx tablet,extended release 24 hr bupropion HCl 150 mg 24 hr tablet, 150 mg PO QAM #30 tabs 01/08/25 01/27/25 Rx extended release lithium carbonate 300 mg capsule 300 mg PO BEDTIME #30 caps 01/08/25 01/27/25 Rx zolpidem 10 mg tablet 10 mg PO BEDTIME PRN insomnia #7 01/08/25 01/27/25 Rx tabs alprazolam 0.5 mg tablet 1 mg (2 x 0.5 mg) PO BID PRN 01/21/25 01/27/25 Rx anxiety #20 tabs trazodone 150 mg tablet 150 mg PO ONCE PM PRN insomnia 01/27/25 01/27/25 History Allergies Allergy/AdvReac Type Severity Reaction Status Date / Time adhesive tape Allergy Unknown Verified 01/19/25 12:41 morphine AdvReac Unknown Pt states Verified 01/19/25 12:41 very sharp pain in pancreas area Review of Systems Review of Systems Narrative: All other systems reviewed with the patient and are negative unless otherwise stated. Exam Vital Signs (past 8 hours): - 01/27/25 03:40 01/27/25 04:00 01/27/25 04:30 Temperature Pulse Rate 80 71 74 Respiratory Rate 18 27 H Blood Pressure Pulse Oximetry 98 100 99 Oxygen Delivery Method Oxygen Flow Rate 01/27/25 04:51 01/27/25 04:51 01/27/25 06:11 Temperature 97.8 F Pulse Rate 72 73 Respiratory Rate 24 18 Blood Pressure 118/75 118/76 Pulse Oximetry 100 98 Oxygen Delivery Method Oxygen Flow Rate 0 01/27/25 08:00 01/27/25 09:13 Temperature 98.2 F Pulse Rate 69 Respiratory Rate 21 Blood Pressure 129/79 Pulse Oximetry 100 Oxygen Delivery Method Room Air Oxygen Flow Rate 0 Oxygen Delivery Method Room Air Oxygen Flow Rate 0 Narrative Exam Narrative: Awake , alert sitting in bed, answering questions appropriately. Asking for Pain medication./ Abd Pain and states she is thirsty HEENT: At/ NC EOMI, PERRL, No scleral Icterus, conjunctivae are normal Neck is supple, no TMG, No adenopathy Chest : CTA , No W/Rales or Rhonchi. BS present , equal. Normal Resp Effort Heart: RRR No M/G/R Abd: Tender + upper abd and periumbilical area. No Gaurding, rebound or Distention No flank tenderness bilat. BS present and WNL. Ext: no edema Skin: warm and dry, no jaundice, no bruising Neuro: A and O x 4, mild b/l hand tremulousness and tongue fasciculations Psyche: Normal mood Judgement is normal Objective ECG Impression: Normal sinus rhythm with biatrial enlargement no evidence of acute ischemia Imaging CT scan - abdomen: Radiologist's impression: PROCEDURE: CT ABDOMEN PELVIS W CON INDICATIONS: ab pain hx pancreatitis TECHNIQUE: After the administration of intravenous contrast, axial sections acquired from the lung bases to the pubic symphysis. Coronal and sagittal reformats were performed. For radiation dose reduction, the following was used: automated exposure control, adjustment of mA and/or kV according to patient size. COMPARISON: [facility], CT, CT ABDOMEN PELVIS W CON, 10/27/2024, 16:47. FINDINGS: Image quality: Diagnostic. Lower Chest: No significant findings. ABDOMEN: Liver: No solid mass. Marked steatosis. Gallbladder: Removed. Biliary ducts: No biliary dilation. Pancreas: No ductal dilation. 11 the blank peripancreatic stranding and appearance of edema is present. No organized fluid collection. Spleen: Size is within normal limits. Adrenal Glands: No adrenal nodules. Kidneys and Ureters: No hydronephrosis. No solid mass. No complex renal cystic lesion which requires follow up. 3 mm right renal calculus. Stomach and Bowel: Normal colonic caliber, without significant wall thickening. Peritoneum: No abnormal intraperitoneal fluid. No free air. Ventral Wall: No significant ventral hernia. Abdominal Nodes: No retroperitoneal or mesenteric adenopathy by size criteria. Vessels: Aorta and inferior vena cava are normal in size. PELVIS: Pelvic Organs: Unremarkable. Bladder: No bladder wall thickening, accounting for underdistention. Pelvic Nodes: No enlarged lymph nodes. Miscellaneous: No inguinal hernias are seen. Bones: No aggressive osseous abnormality. IMPRESSION: [id number] peripancreatic stranding with appearance of edema. No organized fluid collection. Overall appearance appears most suggestive of pancreatitis. Significant hepatic steatosis. Nonobstructing 3 mm right renal calculus. The above findings are concordant with preliminary report. Labs 01/27/25 02:33 01/27/25 03:04 Labs: Laboratory Results - last 24 hr 01/27/25 01/27/25 01/27/25 02:33 03:04 05:01 WBC 13.3 H RBC 4.92 Hgb 17.2 H Hct 50.1 H MCV 101.9 H MCH 34.9 H MCHC 34.3 RDW 12.9 Plt Count 329 Neut % (Auto) 84.5 H Lymph % (Auto) 9.1 L [place] % (Auto) 6.0 Eos % (Auto) 0.1 L Baso % (Auto) 0.3 Neut # (Auto) 81498 H Lymph # (Auto) 1200 [place] # (Auto) 800 Eos # (Auto) 0 Baso # (Auto) 0 Sodium 128 L Potassium 2.9 L Chloride 93 L Carbon Dioxide 22 BUN 11 Creatinine 0.53 Estimated GFR > 60 BUN/Creatinine Ratio 20.8 Glucose 207 H Calcium 9.5 Total Bilirubin 1.5 H AST 63 H ALT 79 H Alkaline Phosphatase 101 Total Protein 7.5 Albumin 4.2 Globulin 3.3 Albumin/Globulin Ratio 1.3 Lipase 2750 H Urine RBC None seen Urine WBC 0-1/hpf Ur Squamous Epith Cells 5-10 /hpf H Urine Bacteria Moderate (10-30) H Ur Culture Indicated? Cult not indicated Vol Urine Centrifuged 10ml (spun) Ethyl Alcohol < 10 Assessment & Plan Assessment & Plan narrative: 1. Acute alcoholic pancreatitis, POA, active - continue NPO with ice chips for now. Possible advance to CLD later depending on symptoms and pain control - mild bili elevation at 1.5, more probably low risk EtOH hepatitis, patient is s/p cholecystectomy and no ductal dilatation on CT - CT confirming pancreatitis, without necrosis or psuedocysts 2. Hyponatremia, POA - continue IV fluids, continue to follow daily with CMP. 3. Hypokalemia, POA - repleted today, recheck with CMP tomorrow 4. Bipolar disorder, POA chronic - continue home medications, lamotrigine, duloxetine, buproprion 5. Alcohol withdrawal, POA, active - start CIWA protocol with as needed lorazepam - also on home xanax 6. Hypothyroidism, chronic - continue home levothyroxine 7. GERD - continue home oral PPI 40 mg BID 8. Hyperlipidemia - can continue home statin atorvastatin 10 mg 9. insomnia - continue trazodone prn at night, hold home zolpidem for now. Code: Full, surrogate is patient's life partner DVT: Lovenox daily I have utilized all available immediate resources to obtain, update, or review the patient's current medications. Dispo: patient admitted under inpatient status. Anticipate discharge home in 2-3 days Additional history obtained via discussions with the overnight provider and bedside RN. These discussions contributed to the creation of the above assessment and plan. I have reviewed patient's presenting documentation, labs, and imaging personally. Time-Based Coding :: [TOTAL MINUTES] spent with patient and on the chart (including review of chart, obtaining history, exam, reviewing outside data, placing orders, documenting exam and treatment plan, and counseling patient) on [DATE].
[2025-01-27] MEDS: LORazepam 2 MG/ML INJ IV ×2 (12:39→16:26)
[2025-01-27] MEDS: DULOXETINE 30 MG CAPSULE 60 MG PO (20:26)
[2025-01-27] MEDS: PRAZOSIN HCL 5 MG CAPSULE PO (20:26)
[2025-01-27] MEDS: LITHIUM 150 MG IR CAPSULE 300 MG PO (20:26)
[2025-01-27] MEDS: PANTOPRAZOLE DR 40 MG TABLET PO (20:26)
[2025-01-27] MEDS: ALPRAZolam 0.25 MG TABLET 0.5 MG PO (20:32)
[2025-01-28] VITALS (9 sets, daily range): BP systolic 94–125; BP diastolic 58–76; PULSE 80–95; RESP 14–18; TEMP 36.4–36.7; O2SAT 94–99
[2025-01-28] MEDS: ONDANSETRON 4 MG/2 ML INJ IV ×6 (00:52→20:59)
[2025-01-28] MEDS: SODIUM CHLORIDE 0.9% 1,000 ML 150 ML IV ×2 (02:19→21:04)
[2025-01-28 05:37] LABS: Prothrombin Time 11.7 SECONDS (9.4-12.5)
[2025-01-28 05:44] LABS: Alanine Aminotransferase 57 IU/L (<35); Albumin 2.9 g/dL (3.5-5.0); Albumin Globulin Ratio 1.1 (1.0-2.8); Alkaline Phosphatase 77 U/L (38-126); Aspartate Aminotransferase 57 IU/L (14-36); BUN Creatinine Ratio 16.3 (6-22); Bilirubin Total 0.9 mg/dL (0.2-1.3); Blood Urea Nitrogen 7 mg/dL (7-17); Calcium 8.4 mg/dL (8.4-10.2); Carbon Dioxide 21 mmol/L (22-32); Chloride 105 mmol/L (98-107); Estimated Glomerular Filt Rate > 60 mL/min (>60); Globulin 2.7 g/dL (1.7-4.1); Glucose 117 mg/dL (70-100); HEMOLYSIS < 15 (0-50); Magnesium 1.7 mg/dL (1.6-2.3); Potassium 3.1 mmol/L (3.4-5.1); Sodium 134 mmol/L (137-145); Total Protein 5.6 g/dL (6.3-8.2)
[2025-01-28] MEDS: SODIUM CHLORIDE 0.9% 500 ML 1000 ML IV (05:51)
[2025-01-28 06:00] LABS: Add Manual Diff / Slide Review NO; Basophils Absolute Auto 0 /uL (0-100); Basophils Percent Auto 0.4 % (0-2); Eosinophils Absolute Auto 0 /uL (0-450); Eosinophils Percent Auto 0.4 % (2-4); Hematocrit 34.4 % (36-46); Hemoglobin 11.8 g/dL (12.0-16.0); Lymphocytes Absolute Auto 1100 /uL (1100-4500); Lymphocytes Percent Auto 14.1 % (25-40); Mean Corpuscular HGB Conc 34.1 % (30-36); Mean Corpuscular Hemoglobin 34.7 PG (26-34); Mean Corpuscular Volume 101.8 fL (80-100); Monocytes Absolute Auto 500 /uL (0-900); Monocytes Percent Auto 6.7 % (3-14); Neutrophils Absolute Auto 6300 /uL (1500-7000); Neutrophils Percent Auto 78.4 % (50-75); Platelet Count 212 X10^3/uL (150-400); Red Blood Cell Count 3.38 X10^6/uL (4.0-5.2); Red Cell Distribution Width 12.7 % (11.6-14.8)
[2025-01-28] MEDS: PANTOPRAZOLE DR 40 MG TABLET PO ×2 (06:13→21:22)
[2025-01-28] MEDS: LEVOTHYROXINE 50 MCG TABLET PO (06:13)
[2025-01-28] MEDS: HYDROMORPHONE 1 MG INJ IV ×5 (06:13→21:21)
--- NOTE | 2025-01-28 07:21 | PM.PN.1 ---
Subjective Subjective Interval history: Summary: 54 F admitted with alcoholic pancreatitis. Still with pain and distension this morning. Increased dilaudid. Also mildly tremulous placed on CIWA protocol with prn ativan. S: She was some shakes today, but no hallucinations. She still has abdomen pain which is epigastric and radiates to her back. She was somewhat hungry. Exam Vital Signs (past 8 hours): - 01/28/25 00:20 01/28/25 04:37 01/28/25 06:23 Temperature 97.6 F 98.0 F Pulse Rate 95 H 95 H 89 Respiratory Rate 16 14 Blood Pressure 95/58 L 94/61 97/61 Pulse Oximetry 96 96 Oxygen Flow Rate 0 0 Oxygen Delivery Method Room Air Oxygen Flow Rate 0 Narrative Exam Narrative: NAD, alert and oriented. Fluent speech. Somewhat shaky. Lungs are clear, normal rate and effort. Heart is regular, no murmur gallop or rub. Abdomen is soft, non distended. She was minimally tender in the epigastric region. Extremities are free of edema. Objective ECG Impression: Normal sinus rhythm with biatrial enlargement no evidence of acute ischemia Imaging CT scan - abdomen: Radiologist's impression: [id number] peripancreatic stranding with appearance of edema. No organized fluid collection. Overall appearance appears most suggestive of pancreatitis. Significant hepatic steatosis. Nonobstructing 3 mm right renal calculus. Labs 01/28/25 05:00 01/28/25 05:00 Labs: Laboratory Results - last 24 hr 01/28/25 05:00 WBC 8.0 RBC 3.38 L Hgb 11.8 L Hct 34.4 L MCV 101.8 H MCH 34.7 H MCHC 34.1 RDW 12.7 Plt Count 212 Neut % (Auto) 78.4 H Lymph % (Auto) 14.1 L [place] % (Auto) 6.7 Eos % (Auto) 0.4 L Baso % (Auto) 0.4 Neut # (Auto) 6300 Lymph # (Auto) 1100 [place] # (Auto) 500 Eos # (Auto) 0 Baso # (Auto) 0 PT 11.7 INR 1.0 Sodium 134 L Potassium 3.1 L Chloride 105 Carbon Dioxide 21 L BUN 7 Creatinine 0.43 L Estimated GFR > 60 BUN/Creatinine Ratio 16.3 Glucose 117 H Calcium 8.4 Magnesium 1.7 Total Bilirubin 0.9 AST 57 H ALT 57 H Alkaline Phosphatase 77 Total Protein 5.6 L Albumin 2.9 L Globulin 2.7 Albumin/Globulin Ratio 1.1 PFSH Medical History DM type 2 (diabetes mellitus, type 2) Tubal ligation evaluation Anxiety ADHD Recurrent pancreatitis Facet arthropathy, lumbar History of alcohol abuse Diabetes Surgical History History of laparoscopic cholecystectomy Family History Father Multiple myeloma Social History household members: significant other Smoking Status: Current every day smoker alcohol intake: never Assessment & Plan Assessment & Plan narrative: 1. Acute alcoholic pancreatitis, POA, active - continue NPO with ice chips for now. Possible advance to CLD later depending on symptoms and pain control - mild bili elevation at 1.5, more probably low risk EtOH hepatitis, patient is s/p cholecystectomy and no ductal dilatation on CT - CT confirming pancreatitis, without necrosis or psuedocysts 2. Hyponatremia, POA and improved. - continue IV fluids, continue to follow daily with CMP. 3. Hypokalemia, POA - repleted today, recheck with CMP tomorrow 4. Bipolar disorder, POA chronic - continue home medications, lamotrigine, duloxetine, buproprion 5. Alcohol withdrawal, POA, active - start CIWA protocol with as needed lorazepam - also on home xanax 6. Hypothyroidism, chronic - continue home levothyroxine 7. GERD - continue home oral PPI 40 mg BID 8. Hyperlipidemia - can continue home statin atorvastatin 10 mg 9. insomnia - continue trazodone prn at night, hold home zolpidem for now. PLAN: -continue NPO and IV fluids for another day. -CIWA protocol. -analgesia for pancreatitis. -monitor mental status. -replete potassium. JAQUAN is January 30. Code: Full, surrogate is patient's life partner DVT: Lovenox daily Time-Based Coding :: [TOTAL MINUTES] spent with patient and on the chart (including review of chart, obtaining history, exam, reviewing outside data, placing orders, documenting exam and treatment plan, and counseling patient) on [DATE].
[2025-01-28] MEDS: ALPRAZolam 0.25 MG TABLET 0.5 MG PO (08:26)
[2025-01-28] MEDS: DULOXETINE 30 MG CAPSULE 60 MG PO ×2 (08:26→20:58)
[2025-01-28] MEDS: MULTIVITAMIN 1 TABLET 1 TAB PO (08:26)
[2025-01-28] MEDS: buPROPion XL 150 MG TAB PO (08:27)
[2025-01-28] MEDS: FOLIC ACID 1 MG TABLET PO (08:27)
[2025-01-28] MEDS: OXYBUTYNIN 5 MG ER TAB 10 MG PO (08:27)
[2025-01-28] MEDS: lamoTRIgine 100 MG TABLET 200 MG PO (08:27)
[2025-01-28] MEDS: ENOXAPARIN 40 MG/0.4 ML SYRINGE SUBCUT (08:28)
[2025-01-28] MEDS: THIAMINE 100 MG TABLET PO (08:28)
[2025-01-28] MEDS: POTASSIUM CHLORIDE 20 MEQ TAB 40 MEQ PO ×2 (08:38→17:13)
[2025-01-28] MEDS: ACYCLOVIR 400 MG TABLET PO ×2 (08:38→20:58)
[2025-01-28] MEDS: MAGNESIUM CHLORIDE 64 MG TABLET 128 MG PO (08:38)
[2025-01-28] MEDS: LORazepam 2 MG/ML INJ IV (13:24)
[2025-01-28] MEDS: PRAZOSIN HCL 5 MG CAPSULE PO (20:58)
[2025-01-28] MEDS: LITHIUM 150 MG IR CAPSULE 300 MG PO (20:59)
[2025-01-29] VITALS: BP 96/57; PULSE 100; RESP 16; TEMP 36.5; O2SAT 95
[2025-01-29] MEDS: SODIUM CHLORIDE 0.9% 1,000 ML 150 ML IV (03:17)
[2025-01-29 03:30] VITALS: BP 93/65; PULSE 94; RESP 16; TEMP 36.1; O2SAT 94
[2025-01-29] MEDS: ONDANSETRON 4 MG/2 ML INJ IV ×5 (05:09→20:36)
[2025-01-29] MEDS: DEXTROSE 5% WATER 1,000 ML 125 ML IV (05:29)
[2025-01-29 05:49] LABS: Add Manual Diff / Slide Review NO; Basophils Absolute Auto 100 /uL (0-100); Eosinophils Absolute Auto 100 /uL (0-450); Eosinophils Percent Auto 1.1 % (2-4); Lymphocytes Absolute Auto 900 /uL (1100-4500); Mean Corpuscular HGB Conc 34.4 % (30-36); Mean Corpuscular Hemoglobin 35.5 PG (26-34); Mean Corpuscular Volume 103.2 fL (80-100); Monocytes Absolute Auto 500 /uL (0-900); Monocytes Percent Auto 7.4 % (3-14); Neutrophils Absolute Auto 5100 /uL (1500-7000); Neutrophils Percent Auto 76.5 % (50-75); Platelet Count 202 X10^3/uL (150-400); Red Cell Distribution Width 12.6 % (11.6-14.8); White Blood Cell Count 6.7 X10^3/uL (4.5-11.0)
[2025-01-29 05:58] LABS: Prothrombin Time 11.2 SECONDS (9.4-12.5)
[2025-01-29 06:04] LABS: Alanine Aminotransferase 89 IU/L (<35); Albumin 2.9 g/dL (3.5-5.0); Albumin Globulin Ratio 1.1 (1.0-2.8); Alkaline Phosphatase 101 U/L (38-126); Aspartate Aminotransferase 130 IU/L (14-36); Bilirubin Total 0.9 mg/dL (0.2-1.3); Blood Urea Nitrogen 6 mg/dL (7-17); Calcium 8.2 mg/dL (8.4-10.2); Carbon Dioxide 18 mmol/L (22-32); Chloride 107 mmol/L (98-107); Estimated Glomerular Filt Rate > 60 mL/min (>60); Globulin 2.7 g/dL (1.7-4.1); Glucose 102 mg/dL (70-100); HEMOLYSIS < 15 (0-50); Magnesium 1.8 mg/dL (1.6-2.3); Potassium 3.8 mmol/L (3.4-5.1); Sodium 135 mmol/L (137-145); Total Protein 5.6 g/dL (6.3-8.2)
[2025-01-29] MEDS: PANTOPRAZOLE DR 40 MG TABLET PO ×2 (06:08→20:37)
--- NOTE | 2025-01-29 06:28 | PC.NURSE ---
BG check-79 early this morning, pt awake, responsive, currently MD GABINO notified, IVF ordered, BG rechecked 100s. will continue to monitor.
--- NOTE | 2025-01-29 07:32 | PM.PN.1 ---
Subjective Subjective Interval history: Summary: 54 F admitted with alcoholic pancreatitis. Still with pain and distension this morning. Also mildly tremulous placed on CIWA protocol with prn ativan. She was sober for over a decade and then started to drink again recently after the of her 2 parents. She lives alone, in [place]. S: Her abdomen pain is resolved. She denies nausea. She does feel somewhat shaky still. She generally shut down. She would like to try to eat. Exam Vital Signs (past 8 hours): - 01/29/25 00:00 01/29/25 03:30 Temperature 97.7 F 96.9 F L Pulse Rate 100 H 94 H Respiratory Rate 16 16 Blood Pressure 96/57 L 93/65 Pulse Oximetry 95 94 Oxygen Delivery Method Room Air Oxygen Flow Rate 0 Narrative Exam Narrative: NAD, alert and oriented. Fluent speech. She was a flat affect in his somewhat withdrawn. Lungs are clear, normal rate and effort. Heart is regular, no murmur gallop or rub. Abdomen is soft, non distended. She was not tender in the epigastric region. Extremities are free of edema. Objective ECG Impression: Normal sinus rhythm with biatrial enlargement no evidence of acute ischemia Imaging CT scan - abdomen: Radiologist's impression: [id number] peripancreatic stranding with appearance of edema. No organized fluid collection. Overall appearance appears most suggestive of pancreatitis. Significant hepatic steatosis. Nonobstructing 3 mm right renal calculus. Labs 01/29/25 05:10 01/29/25 05:10 Labs: Laboratory Results - last 24 hr 01/29/25 05:10 WBC 6.7 RBC 3.10 L Hgb 11.0 L Hct 32.0 L MCV 103.2 H MCH 35.5 H MCHC 34.4 RDW 12.6 Plt Count 202 Neut % (Auto) 76.5 H Lymph % (Auto) 14.0 L [place] % (Auto) 7.4 Eos % (Auto) 1.1 L Baso % (Auto) 1.0 Neut # (Auto) 5100 Lymph # (Auto) 900 L [place] # (Auto) 500 Eos # (Auto) 100 Baso # (Auto) 100 PT 11.2 INR 1.0 Sodium 135 L Potassium 3.8 Chloride 107 Carbon Dioxide 18 L BUN 6 L Creatinine 0.40 L Estimated GFR > 60 BUN/Creatinine Ratio 15.0 Glucose 102 H Calcium 8.2 L Magnesium 1.8 Total Bilirubin 0.9 AST 130 H ALT 89 H Alkaline Phosphatase 101 Total Protein 5.6 L Albumin 2.9 L Globulin 2.7 Albumin/Globulin Ratio 1.1 [facility] Medical History DM type 2 (diabetes mellitus, type 2) Tubal ligation evaluation Anxiety ADHD Recurrent pancreatitis Facet arthropathy, lumbar History of alcohol abuse Diabetes Surgical History History of laparoscopic cholecystectomy Family History Father Multiple myeloma Social History household members: significant other Smoking Status: Current every day smoker alcohol intake: never Assessment & Plan Assessment & Plan narrative: 1. Acute alcoholic pancreatitis, present on admission and improved clinically. - continue NPO with ice chips for now. Possible advance to CLD later depending on symptoms and pain control - mild bili elevation at 1.5, more probably low risk EtOH hepatitis, patient is s/p cholecystectomy and no ductal dilatation on CT - CT confirming pancreatitis, without necrosis or psuedocysts 2. Hyponatremia, present on admission and improved. - continue IV fluids, continue to follow daily with CMP. 3. Hypokalemia, present on admission and improved. - repleted today, recheck with CMP tomorrow 4. Bipolar disorder, present on admission and stable c - continue home medications, lamotrigine, duloxetine, buproprion 5. Alcohol withdrawal, present on admission and active. - start CIWA protocol with as needed lorazepam -she denies hallucinations. 6. Hypothyroidism, present on admission and stable. - continue home levothyroxine 7. GERD, present on admission and stable. - continue home oral PPI 40 mg BID 8. Hyperlipidemia, present on admission and stable. - can continue home statin atorvastatin 10 mg 9. insomnia, present on admission and stable. - continue trazodone prn at night, hold home zolpidem for now. PLAN: -advance diet and stop IV fluids -CIWA protocol. -analgesia for pancreatitis. -out of bed, advance activity. JAQUAN is January 30. Code: Full, surrogate is patient's life partner DVT: Lovenox daily Time-Based Coding :: [TOTAL MINUTES] spent with patient and on the chart (including review of chart, obtaining history, exam, reviewing outside data, placing orders, documenting exam and treatment plan, and counseling patient) on [DATE].
[2025-01-29 08:29] VITALS: BP 98/64; PULSE 89; RESP 14; TEMP 36.9; O2SAT 94
[2025-01-29] MEDS: DULOXETINE 30 MG CAPSULE 60 MG PO ×2 (09:51→20:31)
[2025-01-29] MEDS: MULTIVITAMIN 1 TABLET 1 TAB PO (09:51)
[2025-01-29] MEDS: THIAMINE 100 MG TABLET PO (09:51)
[2025-01-29] MEDS: ENOXAPARIN 40 MG/0.4 ML SYRINGE SUBCUT (09:51)
[2025-01-29] MEDS: ACYCLOVIR 400 MG TABLET PO ×2 (09:52→20:32)
[2025-01-29] MEDS: FOLIC ACID 1 MG TABLET PO (09:52)
[2025-01-29] MEDS: buPROPion XL 150 MG TAB PO (09:52)
[2025-01-29] MEDS: lamoTRIgine 100 MG TABLET 200 MG PO (09:52)
[2025-01-29] MEDS: OXYBUTYNIN 5 MG ER TAB 10 MG PO (09:52)
[2025-01-29] MEDS: HYDROMORPHONE 1 MG INJ IV ×6 (09:58→23:05)
--- NOTE | 2025-01-29 10:19 | CM.DPC ---
DCP Cont. Reviewed EMR and team rounds for status updates. Per Hospitalist, pt will need 1-2 more days before being stable for d/c. No CM needs are anticipated for OP support.
[2025-01-29] MEDS: chlordiazePOXIDE 10 MG CAPSULE PO ×3 (11:38→20:32)
[2025-01-29 12:00] VITALS: BP 98/60; PULSE 96; RESP 14; TEMP 36.2; O2SAT 97
[2025-01-29 16:00] VITALS: BP 91/58; PULSE 89; RESP 16; TEMP 36.5; O2SAT 95
--- NOTE | 2025-01-29 19:59 | PC.NURSE ---
Patient had a vape tucked into her brief, educated patient that this will be placed at the main nurses station until she discharges. Patient tried to hold onto vape and not wanting to hand over to this RN, but did end up handing it over. Labeled vape with patient sticker and gave to nursing information systems coordinator.
[2025-01-29] MEDS: LITHIUM 150 MG IR CAPSULE 300 MG PO (20:32)
[2025-01-29] MEDS: INSULIN LISPRO 100 UNIT/ML 3ML VIAL SUBCUT (20:33)
[2025-01-29 20:39] VITALS: BP 106/74; PULSE 94; RESP 18; TEMP 36.3; O2SAT 95
[2025-01-30] VITALS: BP 99/71; PULSE 98; RESP 18; TEMP 35.8; O2SAT 96
[2025-01-30 04:00] VITALS: BP 112/66; PULSE 96; RESP 18; TEMP 36.1; O2SAT 96
[2025-01-30] MEDS: HYDROMORPHONE 1 MG INJ IV ×6 (04:47→22:32)
[2025-01-30 05:34] LABS: Add Manual Diff / Slide Review NO; Basophils Absolute Auto 0 /uL (0-100); Basophils Percent Auto 0.5 % (0-2); Eosinophils Absolute Auto 200 /uL (0-450); Eosinophils Percent Auto 2.6 % (2-4); Hematocrit 33.6 % (36-46); Hemoglobin 11.6 g/dL (12.0-16.0); Lymphocytes Absolute Auto 900 /uL (1100-4500); Lymphocytes Percent Auto 14.9 % (25-40); Mean Corpuscular HGB Conc 34.7 % (30-36); Mean Corpuscular Hemoglobin 35.6 PG (26-34); Mean Corpuscular Volume 102.7 fL (80-100); Monocytes Absolute Auto 800 /uL (0-900); Neutrophils Absolute Auto 4100 /uL (1500-7000); Platelet Count 239 X10^3/uL (150-400); Red Blood Cell Count 3.27 X10^6/uL (4.0-5.2); Red Cell Distribution Width 12.6 % (11.6-14.8); White Blood Cell Count 5.9 X10^3/uL (4.5-11.0)
[2025-01-30 05:42] LABS: Prothrombin Time 11.2 SECONDS (9.4-12.5)
[2025-01-30 05:48] LABS: Alanine Aminotransferase 88 IU/L (<35); Albumin 3.2 g/dL (3.5-5.0); Albumin Globulin Ratio 1.1 (1.0-2.8); Alkaline Phosphatase 104 U/L (38-126); Aspartate Aminotransferase 83 IU/L (14-36); Bilirubin Total 0.8 mg/dL (0.2-1.3); Calcium 8.7 mg/dL (8.4-10.2); Carbon Dioxide 27 mmol/L (22-32); Chloride 98 mmol/L (98-107); Estimated Glomerular Filt Rate > 60 mL/min (>60); Globulin 2.9 g/dL (1.7-4.1); Glucose 119 mg/dL (70-100); HEMOLYSIS < 15 (0-50); Magnesium 1.7 mg/dL (1.6-2.3); Potassium 3.3 mmol/L (3.4-5.1); Sodium 130 mmol/L (137-145); Total Protein 6.1 g/dL (6.3-8.2)
[2025-01-30 05:59] LABS: BUN Creatinine Ratio 4.9 (6-22); Blood Urea Nitrogen 2 mg/dL (7-17)
[2025-01-30] MEDS: PANTOPRAZOLE DR 40 MG TABLET PO ×2 (06:17→20:35)
[2025-01-30] MEDS: LEVOTHYROXINE 50 MCG TABLET PO (06:17)
[2025-01-30] MEDS: POTASSIUM CHLORIDE 20 MEQ TAB 40 MEQ PO (07:40)
[2025-01-30] MEDS: MAGNESIUM CHLORIDE 64 MG TABLET 128 MG PO (07:40)
[2025-01-30 08:00] VITALS: BP 112/67; PULSE 91; RESP 16; TEMP 37.1; O2SAT 97
[2025-01-30] MEDS: ENOXAPARIN 40 MG/0.4 ML SYRINGE SUBCUT (09:07)
[2025-01-30] MEDS: OXYBUTYNIN 5 MG ER TAB 10 MG PO (09:07)
[2025-01-30] MEDS: ONDANSETRON 4 MG/2 ML INJ IV ×4 (09:07→20:35)
[2025-01-30] MEDS: MULTIVITAMIN 1 TABLET 1 TAB PO (09:07)
[2025-01-30] MEDS: chlordiazePOXIDE 10 MG CAPSULE PO ×3 (09:07→20:35)
[2025-01-30] MEDS: DULOXETINE 30 MG CAPSULE 60 MG PO ×2 (09:07→20:35)
[2025-01-30] MEDS: buPROPion XL 150 MG TAB PO (09:08)
[2025-01-30] MEDS: THIAMINE 100 MG TABLET PO (09:08)
[2025-01-30] MEDS: ACYCLOVIR 400 MG TABLET PO ×2 (09:08→20:35)
[2025-01-30] MEDS: lamoTRIgine 100 MG TABLET 200 MG PO (09:08)
[2025-01-30] MEDS: FOLIC ACID 1 MG TABLET PO (09:08)
[2025-01-30 12:00] VITALS: BP 111/77; PULSE 98; RESP 16; TEMP 36.4; O2SAT 97
--- NOTE | 2025-01-30 12:48 | CM.DPNOTE ---
DCP Continued: Reviewed EMR and team rounds for pt?s medical status. It is reported pt will need another day to stabilize, CIWA 2-5 in the last 12 hours. It is reported pt is a patient at [facility]. DCP met w/patient at bedside; introduced self and role. Patient was found in bed, alert and oriented, cooperative with visit. Pt declines resources in the community at this time. Pt would benefit from outpatient [facility] referral if agreeable, will place resources/contacts in pt chart if requested at discharge. Plan: Anticipating home with significant other when cleared. CM Team will continue to follow for coordination of discharge plans. LAKSHMI Brewer
--- NOTE | 2025-01-30 13:04 | P.PN_ITS ---
Subjective Subjective Date Patient Seen: 01/30/25 Time Patient Seen: 09:50 Interval history: Summary: 54 F admitted with alcoholic pancreatitis. Still with pain and distension this morning. Also mildly tremulous placed on CIWA protocol with prn ativan. She was sober for over a decade and then started to drink again recently after the of her 2 parents. She lives alone, in [place]. S: She reports 7/10 abdominal epigastric pain after advancing her diet. She states she does not feel ready to go home at this point. Team rounds are conducted with case management, nursing and psychologist social. Exam Vital Signs (past 8 hours): - 01/30/25 08:00 01/30/25 12:00 Temperature 98.8 F 97.6 F Pulse Rate 91 H 98 H Respiratory Rate 16 16 Blood Pressure 112/67 111/77 Pulse Oximetry 97 97 Oxygen Flow Rate 0 0 Oxygen Delivery Method Room Air Oxygen Flow Rate 0 Narrative Exam Narrative: NAD, alert and oriented. Fluent speech. She was a flat affect in his somewhat withdrawn. Lungs are clear, normal rate and effort. Heart is regular, no murmur gallop or rub. Abdomen is soft, non distended. Moderately tender epigastric region. Extremities are free of edema. Objective ECG Impression: Normal sinus rhythm with biatrial enlargement no evidence of acute ischemia Imaging CT scan - abdomen: Radiologist's impression: [id number] peripancreatic stranding with appearance of edema. No organized fluid collection. Overall appearance appears most suggestive of pancreatitis. Significant hepatic steatosis. Nonobstructing 3 mm right renal calculus. Labs 01/30/25 04:53 01/30/25 04:53 Labs: Laboratory Results - last 24 hr 01/30/25 04:53 WBC 5.9 RBC 3.27 L Hgb 11.6 L Hct 33.6 L MCV 102.7 H MCH 35.6 H MCHC 34.7 RDW 12.6 Plt Count 239 Neut % (Auto) 69.0 Lymph % (Auto) 14.9 L [place] % (Auto) 13.0 Eos % (Auto) 2.6 Baso % (Auto) 0.5 Neut # (Auto) 4100 Lymph # (Auto) 900 L [place] # (Auto) 800 Eos # (Auto) 200 Baso # (Auto) 0 PT 11.2 INR 1.0 Sodium 130 L Potassium 3.3 L Chloride 98 Carbon Dioxide 27 BUN 2 L Creatinine 0.41 L Estimated GFR > 60 BUN/Creatinine Ratio 4.9 L Glucose 119 H Calcium 8.7 Magnesium 1.7 Total Bilirubin 0.8 AST 83 H ALT 88 H Alkaline Phosphatase 104 Total Protein 6.1 L Albumin 3.2 L Globulin 2.9 Albumin/Globulin Ratio 1.1 [facility] Medical History ADHD Anxiety Diabetes DM type 2 (diabetes mellitus, type 2) Facet arthropathy, lumbar History of alcohol abuse Recurrent pancreatitis Tubal ligation evaluation Surgical History History of laparoscopic cholecystectomy Family History Father Multiple myeloma Social History household members: significant other Smoking Status: Current every day smoker alcohol intake: never Assessment & Plan Assessment & Plan narrative: 1. Acute alcoholic pancreatitis, present on admission and improved clinically. - advance to FLD and beyond if tolerated. - mild bili elevation at 1.5, more probably low risk EtOH hepatitis, patient is s/p cholecystectomy and no ductal dilatation on CT - CT confirming pancreatitis without necrosis or psuedocysts 2. Hyponatremia, present on admission and improved. - worsened today at 130. - stop IV fluids and monitor 3. Hypokalemia, present on admission and improved. - replete again today, recheck with [facility] tomorrow 4. Bipolar disorder, present on admission and stable c - continue home medications, lamotrigine, duloxetine, buproprion 5. Alcohol withdrawal, present on admission and active with CIWA 3-5 overnight. - continue CIWA protocol with as needed lorazepam - she denies hallucinations. 6. Hypothyroidism, present on admission and stable. - continue home levothyroxine 7. GERD, present on admission and stable. - continue home oral PPI 40 mg BID 8. Hyperlipidemia, present on admission and stable. - continue home statin atorvastatin 10 mg 9. insomnia, present on admission and stable. - continue trazodone prn at night, hold home zolpidem for now. PLAN: -advance diet -CIWA protocol. -analgesia for pancreatitis. -out of bed, advance activity. -monitor BMP JAQUAN is January 31. Code: Full, surrogate is patient's life partner DVT: Lovenox daily IH PROFEE Behavioral Health Professional Document charge(s): No Charge Codes Subsequent inpatient/observation care: [id number]
[2025-01-30 16:21] VITALS: BP 114/73; PULSE 96; RESP 14; TEMP 36.7; O2SAT 98
[2025-01-30] MEDS: DEXTROSE 5% WATER 1,000 ML 125 ML IV (16:34)
[2025-01-30 17:53] LABS: Hemoglobin A1C% w Est Avg Glu 4.9 % (4.0-6.0)
[2025-01-30 20:00] VITALS: BP 105/75; PULSE 85; RESP 18; TEMP 36.3; O2SAT 96
[2025-01-30] MEDS: LITHIUM 150 MG IR CAPSULE 300 MG PO (20:35)
[2025-01-31] VITALS (7 sets, daily range): BP systolic 94–114; BP diastolic 62–86; PULSE 66–102; RESP 12–19; TEMP 36.1–37.2; O2SAT 95–99
[2025-01-31] MEDS: ONDANSETRON 4 MG/2 ML INJ IV (00:19)
[2025-01-31] MEDS: LORazepam 1 MG TABLET PO (00:26)
[2025-01-31] MEDS: DEXTROSE 5% WATER 1,000 ML 125 ML IV (00:28)
[2025-01-31] MEDS: HYDROMORPHONE 1 MG INJ IV ×2 (01:01→08:26)
[2025-01-31 05:59] LABS: Calcium 8.5 mg/dL (8.4-10.2); Carbon Dioxide 28 mmol/L (22-32); Chloride 101 mmol/L (98-107); Estimated Glomerular Filt Rate > 60 mL/min (>60); Glucose 202 mg/dL (70-100); HEMOLYSIS < 15 (0-50); Magnesium 1.8 mg/dL (1.6-2.3); Potassium 3.2 mmol/L (3.4-5.1); Sodium 134 mmol/L (137-145)
[2025-01-31] MEDS: LEVOTHYROXINE 50 MCG TABLET PO (06:07)
[2025-01-31] MEDS: PANTOPRAZOLE DR 40 MG TABLET PO ×2 (06:07→21:11)
[2025-01-31 06:11] LABS: BUN Creatinine Ratio 4.9 (6-22); Blood Urea Nitrogen < 2 mg/dL (7-17)
[2025-01-31] MEDS: INSULIN LISPRO 100 UNIT/ML 3ML VIAL SUBCUT (08:09)
[2025-01-31] MEDS: OXYBUTYNIN 5 MG ER TAB 10 MG PO (08:14)
[2025-01-31] MEDS: buPROPion XL 150 MG TAB PO (08:14)
[2025-01-31] MEDS: MULTIVITAMIN 1 TABLET 1 TAB PO (08:14)
[2025-01-31] MEDS: DULOXETINE 30 MG CAPSULE 60 MG PO ×2 (08:14→21:11)
[2025-01-31] MEDS: ACYCLOVIR 400 MG TABLET PO ×2 (08:14→21:11)
[2025-01-31] MEDS: lamoTRIgine 100 MG TABLET 200 MG PO (08:14)
[2025-01-31] MEDS: THIAMINE 100 MG TABLET PO (08:14)
[2025-01-31] MEDS: FOLIC ACID 1 MG TABLET PO (08:14)
[2025-01-31] MEDS: chlordiazePOXIDE 10 MG CAPSULE PO ×3 (08:15→21:27)
[2025-01-31] MEDS: ENOXAPARIN 40 MG/0.4 ML SYRINGE SUBCUT (08:15)
[2025-01-31] MEDS: POTASSIUM CHLORIDE 20 MEQ TAB 40 MEQ PO ×2 (09:40→17:33)
--- NOTE | 2025-01-31 09:42 | PM.PN.IH.1 ---
Subjective Subjective Date Patient Seen: 01/31/25 Time Patient Seen: 09:20 Interval history: Summary: 54 F admitted with alcoholic pancreatitis. Still with pain and distension this morning. Also mildly tremulous placed on CIWA protocol with prn ativan. She was sober for over a decade and then started to drink again recently after the of her 2 parents. She lives alone, in [place]. S: She reports 5/10 abdominal epigastric pain after eating breakfast this morning, eating well per nursing. She states she does not feel ready to go home at this point, stating that she is too weak to even walk to the bathroom. Team rounds are conducted with case management, nursing and nursing home social worker. She received 1 unit of insulin this morning for blood sugar over 200 and subsequently blood sugar was 27 and feeling shaky, responding to oral glucose. Exam Vital Signs (past 8 hours): - 01/31/25 02:59 01/31/25 04:00 01/31/25 08:00 Temperature 98.0 F 98.0 F Pulse Rate 66 70 90 Respiratory Rate 14 19 12 Blood Pressure 107/62 114/86 Pulse Oximetry 96 98 Oxygen Flow Rate 0 0 Oxygen Delivery Method Room Air Oxygen Flow Rate 0 Narrative Exam Narrative: NAD, alert and oriented. Fluent speech. She was a flat affect in his somewhat withdrawn. Lungs are clear, normal rate and effort. Heart is regular, no murmur gallop or rub. Abdomen is soft, non distended. Moderately tender epigastric region. Extremities are free of edema. Neurologic without focal deficits, appears to have full strength upper and lower extremities Objective Labs 01/30/25 04:53 01/31/25 05:33 Labs: Laboratory Results - last 24 hr 01/30/25 01/31/25 04:53 05:33 Sodium 134 L Potassium 3.2 L Chloride 101 Carbon Dioxide 28 BUN < 2 L Creatinine 0.41 L Estimated GFR > 60 BUN/Creatinine Ratio 4.9 L Glucose 202 H Hemoglobin A1c 4.9 Calcium 8.5 Magnesium 1.8 [facility] Medical History ADHD Anxiety Diabetes DM type 2 (diabetes mellitus, type 2) Facet arthropathy, lumbar History of alcohol abuse Recurrent pancreatitis Tubal ligation evaluation Surgical History History of laparoscopic cholecystectomy Family History Father Multiple myeloma Social History household members: significant other Smoking Status: Current every day smoker alcohol intake: never Assessment & Plan Assessment & Plan narrative: 1. Acute alcoholic pancreatitis, present on admission and improved clinically. - advance to FLD and beyond if tolerated. - mild bili elevation at 1.5, more probably low risk EtOH hepatitis, patient is s/p cholecystectomy and no ductal dilatation on CT - CT confirming pancreatitis without necrosis or psuedocysts 2. Hyponatremia, present on admission and improved. - worsened today at 130. - stop IV fluids and monitor 3. Hypokalemia, present on admission and improved. - replete again today, recheck with [facility] tomorrow 4. Bipolar disorder, present on admission and stable c - continue home medications, lamotrigine, duloxetine, buproprion 5. Alcohol withdrawal, present on admission and active with CIWA 3-5 overnight. - continue CIWA protocol with as needed lorazepam - she denies hallucinations. 6. Hypothyroidism, present on admission and stable. - continue home levothyroxine 7. GERD, present on admission and stable. - continue home oral PPI 40 mg BID 8. Hyperlipidemia, present on admission and stable. - continue home statin atorvastatin 10 mg 9. insomnia, present on admission and stable. - continue trazodone prn at night, hold home zolpidem for now. 10. Hyperglycemia, due to acute pancreatitis. No evidence of diabetes with hemoglobin A1c 4.9% on 01/30/2025. PLAN: -continue general diet -discontinue opioid for pancreatitis at this point -out of bed, advance activity, PT consult. -assess for longterm facility placement given profound weakness. -replete potassium JAQUAN is January 31. Code: Full, surrogate is patient's life partner DVT: Lovenox daily IH PROFEE Chairman Emeritus Document charge(s): No Charge Codes Subsequent inpatient/observation care: [id number]
[2025-01-31] MEDS: DEXTROSE 50 % IN WATER 25 GM/50 ML SYRINGE IV (10:38)
--- NOTE | 2025-01-31 12:10 | PC.NURSE ---
Addendum entered by Ann Tejeda R.N. 01/31/25 18:40: Pt rested at intervals T/O rest of day. ' AC CBG @ 1600 = 156. Condition improved throughout day. Resting quietly at this time. Call light w/in reach, bed alarm on, seizure pads in place. However pt inpulsive and crawls out end of bed w/o calling for help. Pt does appear stable on feet. Will continue to assess. Continue w/plan of care. Original Note: Pt assisted to chair for breakfast; AC CBG = 231; covered w/1u as per orders. At approximately 0940 pt was siting in chair, slumpped over. Pt aroused easily, CBG @ 1000 was 27, (checked twice. Pt Alert; given OJ, cheese crackers. Some improvement noted. Given amp of D50 as per orders; with good response. At 1010 CBG = 110 Pt rested until noon- lunch AC CBG = 69 Up in chair to eat. Will recheck after pt. eats. REJI IV intact/patent. Call light w/in reach, chair alarm on for pt safety. Continue to observe.
--- NOTE | 2025-01-31 15:03 | CM.DPC ---
DCP COnt: Per MD, pt tolerated her breakfast today and discontinued her IV dilaudid and switched to PO pain meds if needed and was hopeful to d/c today but per RN pt's blood sugars very low today and adjusting her meds for plan of d/c home tomorrow Sun. Alyson Mullen MSW
[2025-01-31] MEDS: LITHIUM 150 MG IR CAPSULE 300 MG PO (21:11)
[2025-01-31] MEDS: PRAZOSIN 1 MG CAPSULE 5 MG PO (21:12)
[2025-02-01 00:44] VITALS: BP 110/70; PULSE 74; RESP 18; TEMP 36.4; O2SAT 96
[2025-02-01 04:55] VITALS: BP 101/64; PULSE 81; RESP 19; TEMP 37; O2SAT 96
[2025-02-01 05:39] LABS: Blood Urea Nitrogen 3 mg/dL (7-17); Calcium 8.7 mg/dL (8.4-10.2); Carbon Dioxide 27 mmol/L (22-32); Chloride 102 mmol/L (98-107); Estimated Glomerular Filt Rate > 60 mL/min (>60); Glucose 138 mg/dL (70-100); HEMOLYSIS < 15 (0-50); Sodium 136 mmol/L (137-145)
[2025-02-01] MEDS: PANTOPRAZOLE DR 40 MG TABLET PO (06:04)
[2025-02-01] MEDS: LEVOTHYROXINE 50 MCG TABLET PO (06:04)
[2025-02-01] MEDS: POTASSIUM CHLORIDE 20 MEQ TAB 40 MEQ PO (07:01)
[2025-02-01 08:00] VITALS: BP 93/62; PULSE 87; RESP 18; TEMP 36.4; O2SAT 96
[2025-02-01] MEDS: chlordiazePOXIDE 10 MG CAPSULE PO (08:11)
[2025-02-01] MEDS: OXYBUTYNIN 5 MG ER TAB 10 MG PO (08:11)
[2025-02-01] MEDS: lamoTRIgine 100 MG TABLET 200 MG PO (08:11)
[2025-02-01] MEDS: DULOXETINE 30 MG CAPSULE 60 MG PO (08:11)
[2025-02-01] MEDS: buPROPion XL 150 MG TAB PO (08:11)
[2025-02-01] MEDS: MULTIVITAMIN 1 TABLET 1 TAB PO (08:11)
[2025-02-01] MEDS: FOLIC ACID 1 MG TABLET PO (08:11)
[2025-02-01] MEDS: ENOXAPARIN 40 MG/0.4 ML SYRINGE SUBCUT (08:14)
[2025-02-01] MEDS: ACYCLOVIR 400 MG TABLET PO (08:17)
--- NOTE | 2025-02-01 10:22 | PM.DS.IH.1 ---
History of Present Illness History of Present Illness Date Patient Seen: 02/01/25 Time Patient Seen: 07:50 Chief complaint: abd pain Alcohol associated Acute Pancreatitis Narrative: Mary Grace Simeon is 54 y/o F with h/o GERD, DM 2, ADHD, Anxiety, PTSD, Bipolar disorder, current daily cig smoker ,Hypothyroidism, Alcoholism, recurrent Alcohol induced Pancreatitis, pt states last episode was several years ago, who states she had been sober for 13 years, however about 3 months ago she started drinking Alcohol again, starting with a few beers per day, then to a few shots of vodka daily, increased to 5 shots per day of Vodka, then started cutting back , and about 5 days ago, cold turkey'd herself and quit drinking Alcohol completely, as she intends to quit , and has a AA sponsor. She states she noted nausea, about 3 days ago, followed by progressively increasing upper abd and mulugeta umbilical pain, denies radiation of her abd p0ain to the back. She denies vomiting or diarrhea. She had noted sweats and chills, no fever or body aches. Denies CP, SOB, Light Headedness or Syncope Chart review indicates: She was seen in ED on 01/05/25 had Urine cx + for E Coli, and given Keflerx x 10 days. She had been seen at a walk in clinic on 01/19/25 for post menopausal spotting after intercourse, her UA that day was clear of any infection. She denies dysuria or hematuria or vaginal bleeding currently. Was also seen in ED on 01/11/25, irritable and was given Ativan as well as K supp as was hypokalemic ( 3.0), was also intoxicated with Alcohol, ETOH level was 234, AST 143, ALT 78 She states she lives at home by herself and as her abd pain was getting worse she came to ED for evaluation. In ED, she was afebrile HR 100, RR 21, BP 114/82, O2 sats : 97 % on RA Lipase was up at 2750 K low at 2.9, Sodium low at 128, WBC up at 13.3 K Mild Transaminase elevation, ALT > AST Mild T Bili elevation CTAP: per ED provider ( prelim Report per Radiology ) : Acute Pancreatitis without Necrosis / complications, report Full Radiology not available as of yet. Pt was given IV Zofran, Diluadid IV , NS 1 L , K 40 m eq IV, and was referred to Hospitalist team for admission. 54 F admitted with alcoholic pancreatitis. Still with pain and distension this morning. Increased dilaudid. Also mildly tremulous placed on CIWA protocol with prn ativan. She denies recent fever, chills. After increased dilaudid her pain improved from a 9 to a 6. Discharge Providers Provider Date of admission: 01/27/25 05:09 Discharge Date: 02/01/25 Primary care physician: GAYE Maynard Discharge provider: Moshe Samson MD Summary Hospital Course Discharge Diagnosis: 1. Acute alcoholic pancreatitis. 2. Hyponatremia, present on admission and improved. 3. Hypokalemia, present on admission and improved. 4. Hyperglycemia, due to acute pancreatitis. 5. Bipolar disorder, present on admission and stable. 6. Alcohol withdrawal, present on admission and resolved. 7. Hypothyroidism. 8. GERD. 9. Hyperlipidemia. 10. Insomnia. Hospital Course: The patient was admitted and treated with a program of bowel rest, IV fluids, electrolyte repletion and hyperglycemia management. Alcohol withdrawal was mild to moderate and treated with benzodiazepines on the CIWA protocol. She gradually improved over subsequent days and was able to advance her diet to a general diet, with marked improvement of abdominal pain, no longer requiring analgesia, and resolution of alcohol withdrawal. She was able to walk in her room without assistance and interested in discharge home to follow up with her primary care providers. Status at Discharge Cognitive/behavioral status at discharge: oriented Functional status at discharge: independent ambulation Overall status at discharge: patient is back to baseline Time Spent with Patient Time spent: Greater than 30 minutes Exam Vital Signs (past 8 hours): - 02/01/25 04:55 Temperature 98.6 F Pulse Rate 81 Respiratory Rate 19 Blood Pressure 101/64 Pulse Oximetry 96 Oxygen Flow Rate 0 Oxygen Delivery Method Room Air Oxygen Flow Rate 0 Narrative Exam Narrative: NAD, alert and oriented. Fluent speech. She was a flat affect in his somewhat withdrawn. Lungs are clear, normal rate and effort. Heart is regular, no murmur gallop or rub. Abdomen is soft, non distended, mildly tender epigastric region. Extremities are free of edema. Neurologic without focal deficits, appears to have full strength upper and lower extremities Objective ECG Impression: Normal sinus rhythm with biatrial enlargement no evidence of acute ischemia Imaging CT scan - abdomen: Radiologist's impression: [id number] peripancreatic stranding with appearance of edema. No organized fluid collection. Overall appearance appears most suggestive of pancreatitis. Significant hepatic steatosis. Nonobstructing 3 mm right renal calculus. 01/27/2025 Labs 01/30/25 04:53 02/01/25 04:50 Labs: Laboratory Results - last 24 hr 02/01/25 04:50 Sodium 136 L Potassium 3.0 L Chloride 102 Carbon Dioxide 27 BUN 3 L Creatinine 0.43 L Estimated GFR > 60 BUN/Creatinine Ratio 7.0 Glucose 138 H Calcium 8.7 PFSH Medical History ADHD Anxiety Diabetes DM type 2 (diabetes mellitus, type 2) Facet arthropathy, lumbar History of alcohol abuse Recurrent pancreatitis Tubal ligation evaluation Surgical History History of laparoscopic cholecystectomy Family History Father Multiple myeloma Social History household members: significant other Smoking Status: Current every day smoker alcohol intake: never Discharge Plan Discharge Plan Patient Disposition: Home Provider Discharge Comment: Followup with GAYE Maynard 1 week Discharge orders & Medications Prescriptions: Continued levothyroxine 50 mcg tablet 50 mcg PO DAILY 90 Days duloxetine 60 mg capsule,delayed release(DR/EC) 60 mg PO BID Qty: 120 3RF bupropion HCl 150 mg tablet extended release 24 hr 150 mg PO QAM Qty: 30 0RF zolpidem 10 mg tablet 10 mg PO BEDTIME PRN (Reason: insomnia) Qty: 7 0RF lithium carbonate 300 mg capsule 300 mg PO BEDTIME Qty: 30 0RF Rx Instructions: take with food cholecalciferol (vitamin D3) 50 mcg (2,000 unit) capsule 8,000 unit PO DAILY Patient Comments: dose updated per Citlalli HUIZAR acyclovir 400 mg Tablet 400 mg PO BID Qty: 0 lamotrigine 200 mg tablet 200 mg PO DAILY Qty: 30 2RF prazosin 5 mg capsule 5 mg PO BEDTIME Qty: 90 3RF methylphenidate HCl 36 mg tablet extended release 24hr 36 mg PO QAM Qty: 30 0RF alprazolam 0.5 mg tablet 1 mg PO BID PRN (Reason: anxiety) Qty: 20 0RF Rx Instructions: Earliest fill date 01/23/2025 insulin lispro [Humalog KwikPen Insulin] 100 unit/mL insulin pen 0 - 100 unit SUBCUT DAILY omeprazole 40 mg capsule,delayed release(DR/EC) 40 mg PO BID mirabegron [Myrbetriq] 50 mg tablet extended release 24 hr 50 mg PO DAILY trazodone 150 mg tablet 150 mg PO ONCE PM PRN (Reason: insomnia) atorvastatin [Lipitor] 10 mg tablet 10 mg PO BEDTIME Follow up/Referrals: Felicita Jeffrey ARNP [Primary Care Provider] - Visit Report/Discharge Packet Stand Alone Forms: Patient Portal/API, Stroke Signs & Symptoms Discharge Data Primary Care Provider: Felicita Jeffrey Quality [facility]IPS - Admit I confirm the patient?s Advance Care Plan is present, Code status is documented, Surrogate decision maker is in patient?s record [If Yes, STOP here]: Yes [facility] - Meds 'Current medications' to include all prescriptions, [id number] products, herbals, cannabis/cannabidiol products, and vitamin/mineral/dietary (nutritional) supplements. I have utilized all available resources to obtain, update, or review the patient?s current medications. [If Yes, STOP here]: Yes [facility] - DC The patient has a history of heart transplant or Left Ventricular Assist Device (LVAD). If yes, STOP here.: No The patient has current or prior documentation of left ventricular ejection fraction (LVEF) less than or equal to 40%, or moderate or severely depressed left ventricular systolic function.: No A. The patient was prescribed or already taking an Angiotensin-Converting Enzyme (BONILLA) Inhibitor, or Angiotensin Receptor Jerald (ARB).: No B. The patient was prescribed or already taking a beta-jerald. [If Yes to Both A & B, STOP here]: No Patient not prescribed/taking BONILLA or ARB, no reason given.: No Patient not prescribed/taking beta-jerald, no reason given.: No PROFEE Charge Codes Discharge inpatient/observation: [id number]
--- NOTE | 2025-02-01 11:50 | PC.NURSE ---
Patient is A&OX4, VSS, afebrile on RA. She reports abdominal pain is tolerable and is up to the BR independently. She is able to tolerate a small amount of breakfast. MD at bedside evaluating patient and she expresses feeling ready to discharge today. She is cleared for discharge without new medications. She verbalizes understanding of plan of care, and agreement.RN assists patient to w/ch and to call [employer] taxi, arrives at approximately 1116 a.m. to transport patient to [facility].
--- NOTE | 2025-02-01 13:32 | CM.DPC ---
DCP Discharge Home Per MD, pt is medically stable to d/c home today and outpt f/u and no identified barriers to discharge. Per RN, pt ambulating independent in room and tolerating diet and provided with d/c instructions and taken down to [facility] for transport to her apt today, no concerns noted. Plan: Patient discharged home today, provided resources but pt declined any further needs, and to have outpt f/u with her PCP. LUIS EDUARDO Hardin
--- NOTE | 2025-02-06 13:50 | PC.NURSE ---
Late entry: Pt received 1mg of IV ativan @ 1705 for a CIWA of 9 on 01/28/25, 1mg was wasted per hospital policy with another RN. See Pyxis for details.
== END 2025-02-01 11:00 | disposition home or self-care (01) | DRG 439 ==
LOC: ED 02:37 → AC 05:11
PROVIDERS: Internal Medicine; Admitting Provider Hospitalist; Emergency Provider Emergency Medicine; PCP Nurse Practitioner; Visit Provider Hospitalist
DX: K85.20 Alcohol induced acute pancreatitis without necrosis or infection (principal); E87.1 Hypo-osmolality and hyponatremia; F10.239 Alcohol dependence with withdrawal, unspecified; R74.01 Elevation of levels of liver transaminase levels; E87.6 Hypokalemia; F31.9 Bipolar disorder, unspecified; E03.9 Hypothyroidism, unspecified; K21.9 Gastro-esophageal reflux disease without esophagitis; E78.5 Hyperlipidemia, unspecified; G47.00 Insomnia, unspecified; Y90.0 Blood alcohol level of less than 20 mg/100 ml; R73.9 Hyperglycemia, unspecified; F41.9 Anxiety disorder, unspecified; F17.210 Nicotine dependence, cigarettes, uncomplicated; F43.10 Post-traumatic stress disorder, unspecified; F90.9 Attention-deficit hyperactivity disorder, unspecified type; Z79.890 Hormone replacement therapy; Z79.4 Long term (current) use of insulin
CPT/HCPCS: 36415; 74177; 80048; 80053; 80320; 81003; 81015; 81025; 82962; 83036; 83690; 83735; 85025; 85610; 93005; 96361; 96365; 96375; 96376; 99284; J1171; J1650; J1815; J2060; J2405; Q9967

== ENCOUNTER → 2025-08-31 10:01 | Outpatient (CLI) | payer MEDICARE, MEDICAID, SELFPAY ==
[2025-01-27 05:11] VITALS: BMI 21.9
[2025-08-31 10:38] LABS: Hemoglobin A1C% w Est Avg Glu 5.6 % (4.0-6.0)
[2025-08-31 10:52] LABS: Lithium 0.7 mmol/L (0.6-1.2)
[2025-08-31 10:56] LABS: Alanine Aminotransferase 16 IU/L (<35); Albumin 4.6 g/dL (3.5-5.0); Albumin Globulin Ratio 1.5 (1.0-2.8); Alkaline Phosphatase 69 U/L (38-126); Blood Urea Nitrogen 16 mg/dL (7-17); Calcium 9.6 mg/dL (8.4-10.2); Carbon Dioxide 24 mmol/L (22-32); Chloride 103 mmol/L (98-107); Estimated Glomerular Filt Rate > 60 mL/min (>60); Globulin 3.1 g/dL (1.7-4.1); Glucose 135 mg/dL (70-99); HEMOLYSIS < 15 (0-50); Potassium 4.6 mmol/L (3.4-5.1); Sodium 136 mmol/L (137-145); Total Protein 7.7 g/dL (6.3-8.2)
[2025-08-31 11:01] LABS: Cholesterol 203 mg/dL (140-199); HDL Cholesterol 96 mg/dL (40-60); Triglycerides 87 mg/dL (35-150)
[2025-08-31 11:05] LABS: Microalbumi Creatinin Ratio Ur 10.0 ug/mg CR (<30)
[2025-08-31 11:08] LABS: Add Manual Diff / Slide Review NO; Hematocrit 43.6 % (36-46); Hemoglobin 14.7 g/dL (12.0-16.0); Lymphocytes Absolute Auto 1500 /uL (1100-4500); Mean Corpuscular HGB Conc 33.7 % (30-36); Mean Corpuscular Hemoglobin 33.4 PG (26-34); Mean Corpuscular Volume 99.0 fL (80-100); Platelet Count 352 X10^3/uL (150-400)
[2025-08-31 11:28] LABS: TSH w/ Reflex to FT4 1.08 uIU/mL (0.47-4.68)
[2025-08-31 12:06] LABS: Folate 9.6 ng/mL (2.76-20.0); Vitamin B12 340 pg/mL (239-931)
== END ==
PROVIDERS: PCP Nurse Practitioner; Referring Provider Psychiatry & Neurology Psychiatry; Visit Provider Psychiatry & Neurology Psychiatry
DX: D75.89 Other specified diseases of blood and blood-forming organs (principal); E03.8 Other specified hypothyroidism; E08.649 Diabetes mellitus due to underlying condition with hypoglycemia without coma; Z79.4 Long term (current) use of insulin; Z79.899 Other long term (current) drug therapy; F31.63 Bipolar disorder, current episode mixed, severe, without psychotic features
CPT/HCPCS: 36415; 80053; 80061; 80178; 82043; 82570; 82607; 82746; 83036; 84443; 85025